=== PATIENT | female | born 1940 | race Two or more races ===

== ENCOUNTER 2016-06-13 15:10 | Outpatient (RCR) | payer BC | END 2016-06-30 | disposition home or self-care (01) | LOC: PTY 15:10 | DX: R53.81 Other malaise (principal) ==

== ENCOUNTER 2016-07-03 14:40 | Outpatient (RCR) | payer BC | END 2016-07-30 | disposition home or self-care (01) | LOC: PTY 14:40 | DX: R53.81 Other malaise (principal) ==

== ENCOUNTER 2016-09-11 17:44 | Inpatient (IN) | payer BC ==
[~2016-09-11] VITALS: Ht 162.6 cm; Wt 77.1 kg
[2016-09-11] MEDS ORDERED: NS 1000ml 1,900 ML IVLG ONE (18:00)
[2016-09-11 18:30] LABS: BASOPHILS % (AUTO) 0.8 % (0.0-2.0); EOSINOPHILS % (AUTO) 0.8 % (0.0-3.0); LYMPHOCYTES % (AUTO) 20.6 % (20.0-45.0); MEAN CORPUSCULAR HEMOGLOBIN 25.2 PG (27.0-31.0); MEAN CORPUSCULAR VOLUME 81 FL (80-99); MEAN PLATELET VOLUME 7.3 FL (6.5-10.1); MONOCYTES % (AUTO) 14.8 % (1.0-10.0); NEUTROPHILS % (AUTO) 62.9 % (45.0-75.0); PLATELET COUNT 319 K/UL (150-450); RED BLOOD COUNT 4.78 M/UL (4.20-5.40); RED CELL DISTRIBUTION WIDTH 16.3 % (11.6-14.8); WHITE BLOOD COUNT 3.5 K/UL (4.8-10.8)
--- NOTE | 2016-09-11 18:30 | Emergency Room Report ---
History of Present Illness General Chief Complaint: Generalized Weakness Source: Patient, Friend Present Illness HPI Patient is brought in by EMS. The patient is not really wanting to speak with me. She is accompanied by her son who called EMS to her home. Apparently, the patient lives alone and the friend had been called by the patient within the that she needed to go check on her. When she arrived at the patient's home she had been on the ground for some time and had not been eating or drinking. She was very weak and was unable to stand up. Therefore, she called 911. The patient herself has no specific complaints. Per report the patient is now living alone because her roommate is in a rehabilitation facility. Also, the patient herself just recently left a rehabilitation facility. Her primary complaint is generalized weakness. The patient has no other complaints. The patient denies pain or shortness of breath. The patient denies fever or chills. The patient denies nausea or vomiting. Allergies: Coded Allergies: PENICILLIN (Verified Allergy, Unknown, Rash, 03/30/15) Patient History Past Medical History: see triage record, DM, HTN, [place], CAD, CHF Social History: Denies: alcohol use, drug use, smoking Reviewed Nursing Documentation: PMH: Agreed, PSxH: Agreed Nursing Documentation-PMH Hx Pacemaker: Yes Hx Diabetes: Yes Review of Systems All Other Systems: negative except mentioned in HPI Physical Exam Vital Signs Date Time Temp Pulse Resp B/P Pulse Ox O2 Delivery O2 Flow Rate FiO2 09/11/16 17:40 98.2 104 14 110/60 95 Room Air Sp02 EP Interpretation: reviewed, normal General Appearance: no apparent distress, alert, GCS 15, non-toxic Head: normocephalic, atraumatic Eyes: bilateral eye PERRL, bilateral eye normal inspection ENT: hearing grossly normal, normal pharynx, no angioedema, normal voice, dry mucus membranes, other - Dry lips Neck: full range of motion, supple/symm/no masses Respiratory: chest non-tender, lungs clear, normal breath sounds, speaking full sentences Cardiovascular #1: no edema, tachycardia Gastrointestinal: normal bowel sounds, non tender, soft, non-distended, no guarding, no rebound Rectal: deferred Musculoskeletal: back normal, gait/station normal, normal range of motion, non- tender Neurologic: alert, oriented x3, responsive, motor strength/tone normal, sensory intact, speech normal Psychiatric: judgement/insight normal, memory normal, mood/affect normal, no suicidal/homicidal ideation Skin: normal color, no rash, warm/dry, well hydrated Medical Decision Making Diagnostic Impression: Primary Impression: Dehydration Additional Impressions: Failure to thrive Generalized weakness Inability to ambulate ER Course This elderly female presents after being down at her home for some time. The patient lives alone and is clearly having failure to thrive. She is dehydrated with dry lips and dry mucous membranes. She also has an elevated lactate that is likely secondary to dehydration. The patient was given IV fluids and broad- spectrum antibiotics for a urinary tract infection. She will be admitted for further evaluation and treatment. Likely, this patient will need placement in a snf facility. Labs Test 09/11/16 18:12 09/11/16 18:30 09/11/16 18:50 White Blood Count 3.5 K/UL (4.8-10.8) Red Blood Count 4.78 M/UL (4.20-5.40) Hemoglobin 12.1 G/DL (12.0-16.0) Hematocrit 38.8 % (37.0-47.0) Mean Corpuscular Volume 81 FL (80-99) Mean Corpuscular Hemoglobin 25.2 PG (27.0-31.0) Mean Corpuscular Hemoglobin Concent 31.0 G/DL (32.0-36.0) Red Cell Distribution Width 16.3 % (11.6-14.8) Platelet Count 319 K/UL (150-450) Mean Platelet Volume 7.3 FL (6.5-10.1) Neutrophils (%) (Auto) 62.9 % (45.0-75.0) Lymphocytes (%) (Auto) 20.6 % (20.0-45.0) Monocytes (%) (Auto) 14.8 % (1.0-10.0) Eosinophils (%) (Auto) 0.8 % (0.0-3.0) Basophils (%) (Auto) 0.8 % (0.0-2.0) Sodium Level 137 mEQ/L (135-145) Potassium Level 3.1 mEQ/L (3.4-4.9) Chloride Level 89 mEQ/L (98-107) Carbon Dioxide Level 34 mEQ/L (20-30) Anion Gap 14 (5-15) Blood Urea Nitrogen 16 mg/dL (7-23) Creatinine 0.7 mg/dL (0.5-0.9) Estimat Glomerular Filtration Rate mL/min (>60) Glucose Level 110 mg/dL (74-106) Lactic Acid Level 2.50 mmol/L (0.66-2.22) 2.30 mmol/L (0.66-2.22) Calcium Level 8.4 mg/dL (8.6-10.2) Magnesium Level 2.4 mg/dL (1.7-2.5) Total Bilirubin 1.0 mg/dL (0.0-1.2) Aspartate Amino Transf (AST/SGOT) 30 U/L (5-40) Alanine Aminotransferase (ALT/SGPT) 13 U/L (3-33) Alkaline Phosphatase 100 U/L (35-104) Total Creatine Kinase 73 U/L (26-140) Creatine Kinase MB 3.5 ng/mL (< 3.8) Creatine Kinase MB Relative Index 4.7 Troponin I < 0.30 ng/mL (<=0.30) Total Protein 6.1 g/dL (6.6-8.7) Albumin 2.6 g/dL (3.5-5.2) Globulin 3.5 g/dL Albumin/Globulin Ratio 0.7 (1.0-2.7) Urine Color Yellow Urine Appearance Clear Urine pH 8 (4.5-8.0) Urine Specific [place] 1.010 (1.005-1.035) Urine Protein 3+ (NEGATIVE) Urine Glucose (UA) Negative (NEGATIVE) Urine Ketones 2+ (NEGATIVE) Urine Occult Blood Negative (NEGATIVE) Urine Nitrite Negative (NEGATIVE) Urine Bilirubin Negative (NEGATIVE) Urine Urobilinogen 1 MG/DL (0.0-1.0) Urine Leukocyte Esterase 3+ (NEGATIVE) Urine RBC 2-4 /HPF (0 - 2) Urine WBC 5-10 /HPF (0 - 2) Urine Squamous Epithelial Cells Few /LPF (NONE/OCC) Urine Bacteria Few /HPF (NONE) EKG Diagnostic Results Rate: bradycardiac Rhythm: other ST Segments: no acute changes Other Impression Paced. Rate: 60. Rhythm Strip Diag. Results EP Interpretation: yes Rate: 60 Rhythm: no PVC's, no ectopy, other Other Impression Paced Chest X-Ray Diagnostic Results Chest X-Ray Ordered: Yes # of Views/Limited/Complete: 1 View Interpretation: no consolidation, no effusion, no pneumothorax Indication: Other Impression: Other - Cardiomegaly. Subtle increased interstitial opacities. Date Electronically Signed: Sep 11, 2016 Time Electronically Signed: 20:01 Last Vital Signs Date Time Temp Pulse Resp B/P Pulse Ox O2 Delivery O2 Flow Rate FiO2 09/11/16 17:40 98.2 104 14 110/60 95 Room Air Disposition: ADMITTED INPATIENT Condition: Serious PRATIK MUNOZ D.O. Sep 11, 2016 18:30
[2016-09-11 18:37] VITALS: BP 110/60
[2016-09-11 18:39] LABS: TROPONIN I < 0.30 ng/mL (<=0.30)
[2016-09-11 18:41] LABS: REFLEX LACTIC ACID YES OR NO YES
[2016-09-11 18:50] LABS: APPEARANCE,URINE CLEAR; KETONES,URINE 2+ (NEGATIVE); LEUKOCYTE ESTERASE ,URINE 3+ (NEGATIVE); NITRITE,URINE NEGATIVE (NEGATIVE); PH,URINE 8 (4.5-8.0); PROTEIN,URINE 3+ (NEGATIVE); UROBILINOGEN,URINE 1 MG/DL (0.0-1.0)
[2016-09-11 18:58] LABS: BACTERIA,URINE FEW /HPF; SQUAMOUS EPITHELIAL CELL,UR FEW /LPF (NONE/OCC)
[2016-09-11] MEDS ORDERED: cefTRIAXone 1 GM in NS 55 ML IVPB ONE (19:00)
[2016-09-11 19:02] LABS: ALANINE AMINOTRANSFERASE 13 U/L (3-33); ALBUMIN/GLOBULIN RATIO 0.7 (1.0-2.7); ANION GAP 14 (5-15); ASPARTATE AMINO TRANSFERASE 30 U/L (5-40); CALCIUM 8.4 mg/dL (8.6-10.2); CARBON DIOXIDE 34 mEQ/L (20-30); CHLORIDE 89 mEQ/L (98-107); CREATININE 0.7 mg/dL (0.5-0.9); HEMOLYSIS 6; MAGNESIUM 2.4 mg/dL (1.7-2.5); POTASSIUM 3.1 mEQ/L (3.4-4.9); SODIUM 137 mEQ/L (135-145); TOTAL PROTEIN 6.1 g/dL (6.6-8.7)
[2016-09-11 19:13] LABS: CKMB 3.5 ng/mL (< 3.8)
[2016-09-11 19:30] VITALS: BP 98/54
[2016-09-11] MEDS ORDERED: GABAPENTIN250 MG/5 M PO (20:18)
[2016-09-11] MEDS ORDERED: METOLAZONE5 MG PO (20:18)
[2016-09-11] MEDS ORDERED: ASPIR 8181 MG ORAL (20:18)
[2016-09-11] MEDS ORDERED: SIMETHICON40 MG/0.2 PO (20:18)
[2016-09-11] MEDS ORDERED: VITAMIN D1000 UNI1 ORAL (20:18)
[2016-09-11] MEDS ORDERED: COREG3.125 MG ORAL (20:18)
[2016-09-11] MEDS ORDERED: VITAMIN E400 UNI5 PO (20:18)
[2016-09-11] MEDS ORDERED: ZINC SULFATE220 M2 ORAL (20:18)
[2016-09-11] MEDS ORDERED: JANUVIA50 MG ORAL (20:18)
[2016-09-11] MEDS ORDERED: POTASSIUM 25 M25 ME1 PO (20:18)
[2016-09-11] MEDS ORDERED: DEMADEX20 M1 PO (20:18)
[2016-09-11] MEDS ORDERED: VITAMIN C500 M1 ORAL (20:18)
[2016-09-11] MEDS ORDERED: NEURONTIN100 MG ORAL (20:18)
[2016-09-11] MEDS ORDERED: DIGOXIN0.125 MG/1 PO (20:18)
[2016-09-11] MEDS ORDERED: NORCO 5-325 TA1 EACH ORAL (20:18)
[2016-09-11] MEDS ORDERED: MULTI-VITAMIN1 EACH PO (20:18)
[2016-09-11 20:48] VITALS: BP 139/51
[2016-09-11] MEDS ORDERED: LORazepam Inj 2mg/ml 1ml IV PRN (21:00)
[2016-09-11] MEDS ORDERED: Morphine Sulfate 2mg/ml Inj IVP PRN (21:00)
[2016-09-11] MEDS ORDERED: Miralax 17gm pkt ORAL PRN (21:00)
[2016-09-11] MEDS ORDERED: Zolpidem 5mg tab ORAL PRN (21:00)
[2016-09-11] MEDS ORDERED: Mylanta II UD 30ml ORAL PRN (21:00)
[2016-09-11] MEDS: NovoLOG Insulin Flexpen SUBQ SCH (22:00)
[2016-09-11] MEDS ORDERED: 1/2NS w/KCl 20mEq 1000ml 1,000 ML IV SCH (22:00)
[2016-09-11] MEDS: Heparin 5000 units/ml inj SUBQ SCH (22:36)
[2016-09-11] MEDS ORDERED: GABAPENTIN100 MG ORAL (23:10)
[2016-09-12] VITALS (26 sets, daily range): BP systolic 80–126; BP diastolic 44–89
[2016-09-12] MEDS: NovoLOG Insulin Flexpen SUBQ SCH ×4 (06:30→22:03)
[2016-09-12 07:29] LABS: MEAN CORPUSCULAR HEMOGLOBIN 25.5 PG (27.0-31.0); MEAN CORPUSCULAR VOLUME 80 FL (80-99); MEAN PLATELET VOLUME 7.3 FL (6.5-10.1); PLATELET COUNT 331 K/UL (150-450); RED BLOOD COUNT 4.24 M/UL (4.20-5.40); RED CELL DISTRIBUTION WIDTH 16.7 % (11.6-14.8); WHITE BLOOD COUNT 2.9 K/UL (4.8-10.8)
[2016-09-12 07:48] LABS: HEMOGLOBIN A1C 6.8 % (< 6.0)
[2016-09-12 08:03] LABS: ALANINE AMINOTRANSFERASE 11 U/L (3-33); ALBUMIN/GLOBULIN RATIO 0.6 (1.0-2.7); ANION GAP 15 (5-15); ASPARTATE AMINO TRANSFERASE 29 U/L (5-40); CALCIUM 7.8 mg/dL (8.6-10.2); CARBON DIOXIDE 29 mEQ/L (20-30); CHLORIDE 91 mEQ/L (98-107); CHOLESTEROL 146 mg/dL (< 200); CHOLESTEROL/HDL RATIO 2.6 (3.3-4.4); CREATININE 0.6 mg/dL (0.5-0.9); HEMOLYSIS 15; LDL CHOLESTEROL (CALC.) 73 mg/dL (60-99); POTASSIUM 3.1 mEQ/L (3.4-4.9); SODIUM 135 mEQ/L (135-145); TOTAL PROTEIN 5.3 g/dL (6.6-8.7)
[2016-09-12 08:44] LABS: ANISOCYTOSIS 1+; BAND NEUTROPHILS % (MANUAL) 0 % (0-8); BASOPHILS % (MANUAL) 0 % (0-2); EOSINOPHILS % (MANUAL) 2 % (0-3); HYPOCHROMASIA 1+; LYMPHOCYTES % (MANUAL) 20 % (20-45); NEUTROPHILS % (MANUAL) 56 % (45-75); PLATELET ESTIMATE ADEQUATE; PLATELET MORPHOLOGY NORMAL; TOTAL CELLS COUNTED 100
[2016-09-12] MEDS ORDERED: Digoxin 0.125mg tab ORAL SCH (09:00)
[2016-09-12] MEDS: Heparin 5000 units/ml inj SUBQ SCH ×2 (09:06→22:03)
--- NOTE | 2016-09-12 09:50 | Consultation ---
Consult Note Consult Note asked to eval for proteinuria and abnormal electrolytes Chief Complaint: Generalized Weakness Patient is brought in by EMS. The patient is not really wanting to speak with me. She is accompanied by her son who called EMS to her home. Apparently, the patient lives alone and the friend had been called by the patient within the that she needed to go check on her. When she arrived at the patient's home she had been on the ground for some time and had not been eating or drinking. She was very weak and was unable to stand up. Therefore, she called 911. The patient herself has no specific complaints. Per report the patient is now living alone because her roommate is in a rehabilitation facility. Also, the patient herself just recently left a rehabilitation facility. Her primary complaint is generalized weakness. The patient has no other complaints. The patient denies pain or shortness of breath. The patient denies fever or chills. The patient denies nausea or vomiting. Allergies: Coded Allergies: PENICILLIN (Verified Allergy, Unknown, Rash, 03/30/15) Patient History Past Medical History: see triage record, DM, HTN, DC, CAD, CHF Hx Pacemaker: Yes Hx Diabetes: Yes Assessment/Plan status: Proteinuria, likely Diabetic Nephropathy HypoAlbuminemia: Increase Loss vs Decrease production- UTI Anemia Failure to thrive / Dehydration Pacer Plan; Anemia [facility]- K supplement- 24 H urine for protein gastric support- stop [facility]- 2D Echo per orders FAUZIA MAYA Sep 12, 2016 09:49
--- NOTE | 2016-09-12 12:08 | Diagnostic Imaging Report ---
Indications: Shortness of breath Technique: Portable AP chest Findings: Comparison: 01/02/2005 Cardiac silhouette has increased in size. Pulmonary vascular redistribution, bilateral interstitial infiltrates, left costophrenic angle indistinctness have developed. Pacemaker has been placed and left chest wall. IMPRESSION: Findings compatible with development of congestive heart failure with probable left pleural effusion Interval pacemaker placement
[2016-09-12] MEDS ORDERED: DOBUTamine 250mg/250ml Premix 250 ML IV SCH (13:45)
--- NOTE | 2016-09-12 13:53 | History and Physical ---
History of Present Illness General Date patient seen: Sep 12, 2016 Reason for Hospitalization: Generalized Weakness Present Illness HPI 75 year old female with hx of cardiomyopathy, ICD, brought in by EMS for acute encephalopathy, apparently patient had been on the ground for some time and had not been eating or drinking. She was very weak and was unable to stand up. Per report the patient is now living alone because her roommate is in a rehabilitation facility. Also, the patient herself just recently left a rehabilitation facility. Her primary complaint is generalized weakness. The patient has no other complaints. The patient denies pain or shortness of breath. The patient denies fever or chills. The patient denies nausea or vomiting. She is admitted to telemetry. Her blood pressure has been at the low side. She is somnolent and doesn't want to answer to any questions. . Allergies: Coded Allergies: PENICILLIN (Verified Allergy, Unknown, Rash, 03/30/15) Medication History Scheduled Ascorbic Acid* (Vitamin C*), 500 MG ORAL DAILY, (Reported) Aspirin* (Aspir 81*), 81 MG ORAL DAILY, (Reported) Carvedilol (Coreg), 3.125 MG ORAL EVERY 12 HOURS, (Reported) Cholecalciferol (Vitamin D3)* (Vitamin D*), 1,000 UNIT ORAL DAILY, (Reported) Digoxin (Digoxin), 0.125 MG PO DAILY, (Reported) Gabapentin* (Neurontin*), 300 MG ORAL HS, (Reported) Gabapentin* (Gabapentin*), 100 MG ORAL THREE TIMES A DAY, (Reported) Metolazone (Metolazone), 5 MG PO THREE TIMES A WEEK, (Reported) Multivitamin (Multi-Vitamin Daily), 1 EACH PO DAILY, (Reported) Potassium Bicarbonate/Cit Ac (Potassium 25 Meq Tablet Eff), 40 MEQ PO DAILY, ( Reported) Simethicone (Simethicone), 80 MG PO QID, (Reported) Sitagliptin (Januvia), 50 MG ORAL DAILY, (Reported) Torsemide (Demadex), 20 MG PO DAILY, (Reported) Vitamin E Mixed (Vitamin E), 400 UNIT PO DAILY, (Reported) Zinc Sulfate (Zinc Sulfate), 220 MG ORAL DAILY, (Reported) Scheduled PRN Hydrocodone Bit/Acetaminophen 5-325* ([place] 5-325*), 1 TAB ORAL Q4H PRN for For Pain, (Reported) Discontinued Medications Gabapentin (Gabapentin), 100 MG PO TID, (Reported) Discontinued Reason: Medication dose changed Patient History Healthcare decision maker N Resuscitation status Full Code Advanced Directive on File Past Medical/Surgical History Past Medical/Surgical History: (1) ICD (implantable cardioverter-defibrillator) in place (2) Renal insufficiency (3) Diabetes mellitus Review of Systems Constitutional: Reports: malaise, weakness Physical Exam General Appearance: cachetic Lines, tubes and drains: peripheral HEENT: normocephalic, atraumatic Neck: non-tender, normal alignment Respiratory/Chest: chest wall non-tender, lungs clear Cardiovascular/Chest: normal peripheral pulses Abdomen: normal bowel sounds, non tender Genitourinary/Rectal: normal genital exam Extremities: severe edema Last 24 Hour Vital Signs Date Time Temp Pulse Resp B/P Pulse Ox O2 Delivery O2 Flow Rate FiO2 09/12/16 12:53 90/52 09/12/16 12:30 86 101/56 09/12/16 12:00 97.0 84 17 87/48 97 Room Air 09/12/16 09:06 88 09/12/16 09:06 88 112/55 09/12/16 08:09 97.7 88 17 112/55 100 2.0 09/12/16 08:00 94 09/12/16 04:00 87 09/12/16 03:46 97.8 78 19 119/75 93 Room Air 09/12/16 00:01 98.3 89 18 126/53 95 Room Air 09/12/16 00:00 96 09/11/16 22:58 95 135/55 09/11/16 20:48 97.0 101 19 139/51 98 Room Air 09/11/16 20:42 104 09/11/16 20:26 95.8 97 15 98/54 99 Room Air 09/11/16 19:30 95.8 97 15 98/54 99 Room Air 09/11/16 18:37 98.2 104 14 110/60 95 Room Air 09/11/16 17:40 98.2 104 14 110/60 95 Room Air Intake and Output 09/11/16 09/12/16 19:00 07:00 Intake Total 2495 ml Balance 2495 ml Intake Oral 120 ml IV Total 2375 ml # Voids 1 5 Laboratory Tests Test 09/11/16 18:12 09/11/16 18:30 09/11/16 18:50 09/12/16 06:00 White Blood Count 3.5 K/UL (4.8-10.8) L 2.9 K/UL (4.8-10.8) L Red Blood Count 4.78 M/UL (4.20-5.40) 4.24 M/UL (4.20-5.40) Hemoglobin 12.1 G/DL (12.0-16.0) 10.8 G/DL (12.0-16.0) L Hematocrit 38.8 % (37.0-47.0) 33.8 % (37.0-47.0) L Mean Corpuscular Volume 81 FL (80-99) 80 FL (80-99) Mean Corpuscular Hemoglobin 25.2 PG (27.0-31.0) L 25.5 PG (27.0-31.0) L Mean Corpuscular Hemoglobin Concent 31.0 G/DL (32.0-36.0) L 32.0 G/DL (32.0-36.0) Red Cell Distribution Width 16.3 % (11.6-14.8) H 16.7 % (11.6-14.8) H Platelet Count 319 K/UL (150-450) 331 K/UL (150-450) Mean Platelet Volume 7.3 FL (6.5-10.1) 7.3 FL (6.5-10.1) Neutrophils (%) (Auto) 62.9 % (45.0-75.0) % (45.0-75.0) Lymphocytes (%) (Auto) 20.6 % (20.0-45.0) % (20.0-45.0) Monocytes (%) (Auto) 14.8 % (1.0-10.0) H % (1.0-10.0) Eosinophils (%) (Auto) 0.8 % (0.0-3.0) % (0.0-3.0) Basophils (%) (Auto) 0.8 % (0.0-2.0) % (0.0-2.0) Sodium Level 137 mEQ/L (135-145) 135 mEQ/L (135-145) Potassium Level 3.1 mEQ/L (3.4-4.9) L 3.1 mEQ/L (3.4-4.9) L Chloride Level 89 mEQ/L (98-107) L 91 mEQ/L (98-107) L Carbon Dioxide Level 34 mEQ/L (20-30) H 29 mEQ/L (20-30) Anion Gap 14 (5-15) 15 (5-15) Blood Urea Nitrogen 16 mg/dL (7-23) 12 mg/dL (7-23) Creatinine 0.7 mg/dL (0.5-0.9) 0.6 mg/dL (0.5-0.9) Estimat Glomerular Filtration Rate mL/min (>60) mL/min (>60) Glucose Level 110 mg/dL (74-106) H 92 mg/dL (74-106) Lactic Acid Level 2.50 mmol/L (0.66-2.22) H 2.30 mmol/L (0.66-2.22) H Calcium Level 8.4 mg/dL (8.6-10.2) L 7.8 mg/dL (8.6-10.2) L Magnesium Level 2.4 mg/dL (1.7-2.5) Total Bilirubin 1.0 mg/dL (0.0-1.2) 0.7 mg/dL (0.0-1.2) Aspartate Amino Transf (AST/SGOT) 30 U/L (5-40) 29 U/L (5-40) Alanine Aminotransferase (ALT/SGPT) 13 U/L (3-33) 11 U/L (3-33) Alkaline Phosphatase 100 U/L (35-104) 87 U/L (35-104) Total Creatine Kinase 73 U/L (26-140) Creatine Kinase MB 3.5 ng/mL (< 3.8) Creatine Kinase MB Relative Index 4.7 Troponin I < 0.30 ng/mL (<=0.30) Total Protein 6.1 g/dL (6.6-8.7) L 5.3 g/dL (6.6-8.7) L Albumin 2.6 g/dL (3.5-5.2) L 2.1 g/dL (3.5-5.2) L Globulin 3.5 g/dL 3.2 g/dL Albumin/Globulin Ratio 0.7 (1.0-2.7) L 0.6 (1.0-2.7) L Urine Color Yellow Urine Appearance Clear Urine pH 8 (4.5-8.0) Urine Specific [place] 1.010 (1.005-1.035) Urine Protein 3+ (NEGATIVE) H Urine Glucose (UA) Negative (NEGATIVE) Urine Ketones 2+ (NEGATIVE) H Urine Occult Blood Negative (NEGATIVE) Urine Nitrite Negative (NEGATIVE) Urine Bilirubin Negative (NEGATIVE) Urine Urobilinogen 1 MG/DL (0.0-1.0) H Urine Leukocyte Esterase 3+ (NEGATIVE) H Urine RBC 2-4 /HPF (0 - 2) H Urine WBC 5-10 /HPF (0 - 2) H Urine Squamous Epithelial Cells Few /LPF (NONE/OCC) Urine Bacteria Few /HPF (NONE) Differential Total Cells Counted 100 Neutrophils % (Manual) 56 % (45-75) Lymphocytes % (Manual) 20 % (20-45) Monocytes % (Manual) 22 % (1-10) H Eosinophils % (Manual) 2 % (0-3) Basophils % (Manual) 0 % (0-2) Band Neutrophils 0 % (0-8) Platelet Estimate Adequate Platelet Morphology Normal Hypochromasia 1+ Anisocytosis 1+ Hemoglobin A1c 6.8 % (< 6.0) H Triglycerides Level 85 mg/dL (< 150) Cholesterol Level 146 mg/dL (< 200) LDL Cholesterol 73 mg/dL (60-99) HDL Cholesterol 56 mg/dL (> 60) Cholesterol/HDL Ratio 2.6 (3.3-4.4) L Thyroid Stimulating Hormone (TSH) 2.100 uIU/mL (0.300-4.500) Height (Feet): 5 Height (Inches): 4.00 Weight (Pounds): 152 Medications Current Medications Medications (Trade) Dose Ordered Sig/Michael Route PRN Reason Start Time Stop Time Status Last Admin Dose Admin Acetaminophen (Tylenol) 650 mg Q4H PRN ORAL fever 09/11/16 21:00 10/11/16 20:59 Carvedilol (Coreg) 3.125 mg EVERY 12 HOURS ORAL 09/11/16 21:00 10/11/16 20:59 09/12/16 09:06 Dextrose (Dextrose 50%) STAT PRN IV Hypoglycemia 09/11/16 21:00 10/11/16 20:59 Digoxin (Lanoxin) 0.125 mg DAILY ORAL 09/12/16 09:00 10/12/16 08:59 09/12/16 09:06 Heparin Sodium (Porcine) (Heparin 5000 units/ml) 5,000 units EVERY 12 HOURS SUBQ 09/11/16 21:00 10/11/16 20:59 09/12/16 09:06 Insulin Aspart (NovoLOG) BEFORE MEALS AND HS SUBQ 09/11/16 22:00 10/11/16 21:59 Lorazepam (Ativan 2mg/ml 1ml) 0.5 mg Q4H PRN IV For Anxiety 09/11/16 21:00 09/18/16 20:59 09/12/16 09:21 Morphine Sulfate (Morphine Sulfate) 1 mg EVERY 4 HOURS PRN IVP For Pain 09/11/16 21:00 09/18/16 20:59 Ondansetron HCl (Zofran) 4 mg Q6H PRN IVP Nausea & Vomiting 09/11/16 21:00 10/11/16 20:59 Pantoprazole (Protonix) 40 mg BID ORAL 09/12/16 10:00 10/12/16 09:59 09/12/16 11:08 Polyethylene Glycol (Miralax) 17 gm HSPRN PRN ORAL Constipation 09/11/16 21:00 10/11/16 20:59 Potassium Chloride (K-Dur) 40 meq TWICE A DAY ORAL 09/12/16 10:00 09/13/16 09:59 09/12/16 11:08 Zolpidem Tartrate (Ambien) 5 mg HSPRN PRN ORAL Insomnia 09/11/16 21:00 10/11/16 20:59 Assessment/Plan Problem List: (1) Shock ICD Codes: R57.9 - Shock, unspecified SNOMED: 12693389 (2) Hypotension ICD Codes: I95.9 - Hypotension, unspecified SNOMED: 32435372 (3) ICD (implantable cardioverter-defibrillator) in place ICD Codes: Z95.810 - Presence of automatic (implantable) cardiac defibrillator SNOMED: 685390535, 689703310 (4) Protein-calorie malnutrition, severe ICD Codes: E43 - Unspecified severe protein-calorie malnutrition SNOMED: 605138133 (5) Isolation, social ICD Codes: Z60.4 - Social exclusion and rejection SNOMED: 522845179 (6) Generalized weakness ICD Codes: R53.1 - Weakness SNOMED: 19154342 (7) Failure to thrive SNOMED: 87071068 (8) Diabetes mellitus ICD Codes: E11.9 - Type 2 diabetes mellitus without complications SNOMED: 70444916 (9) Renal insufficiency ICD Codes: N28.9 - Disorder of kidney and ureter, unspecified SNOMED: 308831842, 838485628 (10) Impaired mobility and ADLs ICD Codes: Z74.09 - Other reduced mobility SNOMED: 14774901, 399083728 Assessment/Plan IV fluids central line for dobutamin if hypotension persists cardiology evaluation echo venous doppler of legs social service ANGELA BERUMEN Sep 12, 2016 13:53
[2016-09-12] MEDS ORDERED: Heparin 2000 units/Ns 1000ml INJ ONE (14:00)
[2016-09-12] MEDS ORDERED: Lidocaine 1% Plain 30 ml INJ ONE (14:00)
[2016-09-12] MEDS ORDERED: Sodium Bicarbonate 4% 2.4meq/5ml vial INJ ONE (14:00)
[2016-09-12] MEDS ORDERED: LORazepam Inj 2mg/ml 1ml IV PRN (14:30)
--- NOTE | 2016-09-12 14:42 | Neurology Progress Note ---
Objective Physical Exam Last Vital Signs Date Time Temp Pulse Resp B/P Pulse Ox O2 Delivery O2 Flow Rate FiO2 09/12/16 13:51 88/51 09/12/16 12:30 86 09/12/16 12:00 97.0 17 97 Room Air 09/12/16 08:09 2.0 Laboratory Tests Test 09/11/16 18:12 09/11/16 18:30 09/11/16 18:50 09/12/16 06:00 White Blood Count 3.5 K/UL (4.8-10.8) L 2.9 K/UL (4.8-10.8) L Red Blood Count 4.78 M/UL (4.20-5.40) 4.24 M/UL (4.20-5.40) Hemoglobin 12.1 G/DL (12.0-16.0) 10.8 G/DL (12.0-16.0) L Hematocrit 38.8 % (37.0-47.0) 33.8 % (37.0-47.0) L Mean Corpuscular Volume 81 FL (80-99) 80 FL (80-99) Mean Corpuscular Hemoglobin 25.2 PG (27.0-31.0) L 25.5 PG (27.0-31.0) L Mean Corpuscular Hemoglobin Concent 31.0 G/DL (32.0-36.0) L 32.0 G/DL (32.0-36.0) Red Cell Distribution Width 16.3 % (11.6-14.8) H 16.7 % (11.6-14.8) H Platelet Count 319 K/UL (150-450) 331 K/UL (150-450) Mean Platelet Volume 7.3 FL (6.5-10.1) 7.3 FL (6.5-10.1) Neutrophils (%) (Auto) 62.9 % (45.0-75.0) % (45.0-75.0) Lymphocytes (%) (Auto) 20.6 % (20.0-45.0) % (20.0-45.0) Monocytes (%) (Auto) 14.8 % (1.0-10.0) H % (1.0-10.0) Eosinophils (%) (Auto) 0.8 % (0.0-3.0) % (0.0-3.0) Basophils (%) (Auto) 0.8 % (0.0-2.0) % (0.0-2.0) Sodium Level 137 mEQ/L (135-145) 135 mEQ/L (135-145) Potassium Level 3.1 mEQ/L (3.4-4.9) L 3.1 mEQ/L (3.4-4.9) L Chloride Level 89 mEQ/L (98-107) L 91 mEQ/L (98-107) L Carbon Dioxide Level 34 mEQ/L (20-30) H 29 mEQ/L (20-30) Anion Gap 14 (5-15) 15 (5-15) Blood Urea Nitrogen 16 mg/dL (7-23) 12 mg/dL (7-23) Creatinine 0.7 mg/dL (0.5-0.9) 0.6 mg/dL (0.5-0.9) Estimat Glomerular Filtration Rate mL/min (>60) mL/min (>60) Glucose Level 110 mg/dL (74-106) H 92 mg/dL (74-106) Lactic Acid Level 2.50 mmol/L (0.66-2.22) H 2.30 mmol/L (0.66-2.22) H Calcium Level 8.4 mg/dL (8.6-10.2) L 7.8 mg/dL (8.6-10.2) L Magnesium Level 2.4 mg/dL (1.7-2.5) Total Bilirubin 1.0 mg/dL (0.0-1.2) 0.7 mg/dL (0.0-1.2) Aspartate Amino Transf (AST/SGOT) 30 U/L (5-40) 29 U/L (5-40) Alanine Aminotransferase (ALT/SGPT) 13 U/L (3-33) 11 U/L (3-33) Alkaline Phosphatase 100 U/L (35-104) 87 U/L (35-104) Total Creatine Kinase 73 U/L (26-140) Creatine Kinase MB 3.5 ng/mL (< 3.8) Creatine Kinase MB Relative Index 4.7 Troponin I < 0.30 ng/mL (<=0.30) Total Protein 6.1 g/dL (6.6-8.7) L 5.3 g/dL (6.6-8.7) L Albumin 2.6 g/dL (3.5-5.2) L 2.1 g/dL (3.5-5.2) L Globulin 3.5 g/dL 3.2 g/dL Albumin/Globulin Ratio 0.7 (1.0-2.7) L 0.6 (1.0-2.7) L Urine Color Yellow Urine Appearance Clear Urine pH 8 (4.5-8.0) Urine Specific [place] 1.010 (1.005-1.035) Urine Protein 3+ (NEGATIVE) H Urine Glucose (UA) Negative (NEGATIVE) Urine Ketones 2+ (NEGATIVE) H Urine Occult Blood Negative (NEGATIVE) Urine Nitrite Negative (NEGATIVE) Urine Bilirubin Negative (NEGATIVE) Urine Urobilinogen 1 MG/DL (0.0-1.0) H Urine Leukocyte Esterase 3+ (NEGATIVE) H Urine RBC 2-4 /HPF (0 - 2) H Urine WBC 5-10 /HPF (0 - 2) H Urine Squamous Epithelial Cells Few /LPF (NONE/OCC) Urine Bacteria Few /HPF (NONE) Differential Total Cells Counted 100 Neutrophils % (Manual) 56 % (45-75) Lymphocytes % (Manual) 20 % (20-45) Monocytes % (Manual) 22 % (1-10) H Eosinophils % (Manual) 2 % (0-3) Basophils % (Manual) 0 % (0-2) Band Neutrophils 0 % (0-8) Platelet Estimate Adequate Platelet Morphology Normal Hypochromasia 1+ Anisocytosis 1+ Hemoglobin A1c 6.8 % (< 6.0) H Triglycerides Level 85 mg/dL (< 150) Cholesterol Level 146 mg/dL (< 200) LDL Cholesterol 73 mg/dL (60-99) HDL Cholesterol 56 mg/dL (> 60) Cholesterol/HDL Ratio 2.6 (3.3-4.4) L Thyroid Stimulating Hormone (TSH) 2.100 uIU/mL (0.300-4.500) Impression/Recommendations Problems: (1) Cognitive decline (2) Impaired mobility and ADLs (3) Protein-calorie malnutrition, severe (4) Hypotension (5) ICD (implantable cardioverter-defibrillator) in place (6) Failure to thrive Status: not improved, unchanged Recommendations #[id number] KHADIJAH MORALES Sep 12, 2016 14:42
[2016-09-12] MEDS ORDERED: Morphine Sulfate 2mg/ml Inj IVP PRN (14:45)
--- NOTE | 2016-09-12 17:21 | Cardiology Progress Note ---
Assessment/Plan Assessment/Plan hypotension related to meds as well as volume chronci systolic failure with acute component dcm ef 10-15% hs of sig mr s/p mitraclip sever TR peripheral edema due to tr recentl cellutiis dm metabolic encephalopathy brest cancer hs recetnl dx fo thryoid cancer not treatede surgically due to poor cardiac status ? broncitis vs sinusitis hold diuretic for nwo dobutain avoid narctoic resuem med cardic once bp is better pt known to me for more than 15 year [id number] Objective Last 24 Hour Vital Signs Date Time Temp Pulse Resp B/P Pulse Ox O2 Delivery O2 Flow Rate FiO2 09/12/16 17:00 97 19 88/44 100 Nasal Cannula 2.0 09/12/16 16:00 98.1 81 20 108/75 100 Nasal Cannula 2.0 09/12/16 16:00 78 09/12/16 15:00 82 19 83/55 100 Nasal Cannula 2.0 09/12/16 14:19 82 09/12/16 14:00 98.2 81 20 81/53 100 Nasal Cannula 2.0 09/12/16 13:51 88/51 09/12/16 12:53 90/52 09/12/16 12:30 86 101/56 09/12/16 12:00 97.0 84 17 87/48 97 Room Air 09/12/16 09:06 88 09/12/16 09:06 88 112/55 09/12/16 08:09 97.7 88 17 112/55 100 2.0 09/12/16 08:00 94 09/12/16 04:00 87 09/12/16 03:46 97.8 78 19 119/75 93 Room Air 09/12/16 00:01 98.3 89 18 126/53 95 Room Air 09/12/16 00:00 96 09/11/16 22:58 95 135/55 09/11/16 20:48 97.0 101 19 139/51 98 Room Air 09/11/16 20:42 104 09/11/16 20:26 95.8 97 15 98/54 99 Room Air 09/11/16 19:30 95.8 97 15 98/54 99 Room Air 09/11/16 18:37 98.2 104 14 110/60 95 Room Air 09/11/16 17:40 98.2 104 14 110/60 95 Room Air Intake and Output 09/11/16 09/12/16 19:00 07:00 Intake Total 2495 ml Balance 2495 ml Intake Oral 120 ml IV Total 2375 ml # Voids 1 5 Laboratory Tests Test 09/11/16 18:12 09/11/16 18:30 09/11/16 18:50 09/12/16 06:00 White Blood Count 3.5 K/UL (4.8-10.8) L 2.9 K/UL (4.8-10.8) L Red Blood Count 4.78 M/UL (4.20-5.40) 4.24 M/UL (4.20-5.40) Hemoglobin 12.1 G/DL (12.0-16.0) 10.8 G/DL (12.0-16.0) L Hematocrit 38.8 % (37.0-47.0) 33.8 % (37.0-47.0) L Mean Corpuscular Volume 81 FL (80-99) 80 FL (80-99) Mean Corpuscular Hemoglobin 25.2 PG (27.0-31.0) L 25.5 PG (27.0-31.0) L Mean Corpuscular Hemoglobin Concent 31.0 G/DL (32.0-36.0) L 32.0 G/DL (32.0-36.0) Red Cell Distribution Width 16.3 % (11.6-14.8) H 16.7 % (11.6-14.8) H Platelet Count 319 K/UL (150-450) 331 K/UL (150-450) Mean Platelet Volume 7.3 FL (6.5-10.1) 7.3 FL (6.5-10.1) Neutrophils (%) (Auto) 62.9 % (45.0-75.0) % (45.0-75.0) Lymphocytes (%) (Auto) 20.6 % (20.0-45.0) % (20.0-45.0) Monocytes (%) (Auto) 14.8 % (1.0-10.0) H % (1.0-10.0) Eosinophils (%) (Auto) 0.8 % (0.0-3.0) % (0.0-3.0) Basophils (%) (Auto) 0.8 % (0.0-2.0) % (0.0-2.0) Sodium Level 137 mEQ/L (135-145) 135 mEQ/L (135-145) Potassium Level 3.1 mEQ/L (3.4-4.9) L 3.1 mEQ/L (3.4-4.9) L Chloride Level 89 mEQ/L (98-107) L 91 mEQ/L (98-107) L Carbon Dioxide Level 34 mEQ/L (20-30) H 29 mEQ/L (20-30) Anion Gap 14 (5-15) 15 (5-15) Blood Urea Nitrogen 16 mg/dL (7-23) 12 mg/dL (7-23) Creatinine 0.7 mg/dL (0.5-0.9) 0.6 mg/dL (0.5-0.9) Estimat Glomerular Filtration Rate mL/min (>60) mL/min (>60) Glucose Level 110 mg/dL (74-106) H 92 mg/dL (74-106) Lactic Acid Level 2.50 mmol/L (0.66-2.22) H 2.30 mmol/L (0.66-2.22) H Calcium Level 8.4 mg/dL (8.6-10.2) L 7.8 mg/dL (8.6-10.2) L Magnesium Level 2.4 mg/dL (1.7-2.5) Total Bilirubin 1.0 mg/dL (0.0-1.2) 0.7 mg/dL (0.0-1.2) Aspartate Amino Transf (AST/SGOT) 30 U/L (5-40) 29 U/L (5-40) Alanine Aminotransferase (ALT/SGPT) 13 U/L (3-33) 11 U/L (3-33) Alkaline Phosphatase 100 U/L (35-104) 87 U/L (35-104) Total Creatine Kinase 73 U/L (26-140) Creatine Kinase MB 3.5 ng/mL (< 3.8) Creatine Kinase MB Relative Index 4.7 Troponin I < 0.30 ng/mL (<=0.30) Total Protein 6.1 g/dL (6.6-8.7) L 5.3 g/dL (6.6-8.7) L Albumin 2.6 g/dL (3.5-5.2) L 2.1 g/dL (3.5-5.2) L Globulin 3.5 g/dL 3.2 g/dL Albumin/Globulin Ratio 0.7 (1.0-2.7) L 0.6 (1.0-2.7) L Urine Color Yellow Urine Appearance Clear Urine pH 8 (4.5-8.0) Urine Specific [place] 1.010 (1.005-1.035) Urine Protein 3+ (NEGATIVE) H Urine Glucose (UA) Negative (NEGATIVE) Urine Ketones 2+ (NEGATIVE) H Urine Occult Blood Negative (NEGATIVE) Urine Nitrite Negative (NEGATIVE) Urine Bilirubin Negative (NEGATIVE) Urine Urobilinogen 1 MG/DL (0.0-1.0) H Urine Leukocyte Esterase 3+ (NEGATIVE) H Urine RBC 2-4 /HPF (0 - 2) H Urine WBC 5-10 /HPF (0 - 2) H Urine Squamous Epithelial Cells Few /LPF (NONE/OCC) Urine Bacteria Few /HPF (NONE) Differential Total Cells Counted 100 Neutrophils % (Manual) 56 % (45-75) Lymphocytes % (Manual) 20 % (20-45) Monocytes % (Manual) 22 % (1-10) H Eosinophils % (Manual) 2 % (0-3) Basophils % (Manual) 0 % (0-2) Band Neutrophils 0 % (0-8) Platelet Estimate Adequate Platelet Morphology Normal Hypochromasia 1+ Anisocytosis 1+ Hemoglobin A1c 6.8 % (< 6.0) H Triglycerides Level 85 mg/dL (< 150) Cholesterol Level 146 mg/dL (< 200) LDL Cholesterol 73 mg/dL (60-99) HDL Cholesterol 56 mg/dL (> 60) Cholesterol/HDL Ratio 2.6 (3.3-4.4) L Thyroid Stimulating Hormone (TSH) 2.100 uIU/mL (0.300-4.500) MARSHALL ROJO 13, 2017 17:21
--- NOTE | 2016-09-12 17:42 | Cardiology Report ---
APPROVED REPORT EXAM: Two-dimensional and M-mode echocardiogram with Doppler and color Doppler. INDICATION Congestive Heart Failure M-Mode DIMENSIONS IVSd1.2 (0.7-1.1cm)Left Atrium (MM)4.3 (1.6-4.0cm) LVDd6.1 (3.5-5.6cm)Aortic Root2.4 (2.0-3.7cm) PWd0.7 (0.7-1.1cm)Aortic Cusp Exc.1.7 (1.5-2.0cm) LVDs5.8 (2.5-4.0cm) PWs0.8 cm Mild left ventricular enlargement. Global left ventricular hypokinesis. Mild left ventricular hypertrophy. No evidence of pericardial fat or effusion. Large pleural effusion. Moderate right atrial and right ventricular enlargement. Severe left atrial enlargement. Mild focal aortic valve sclerosis with adequate cusp excursion.THERE ARE MOBILE DENSITIES ON THE LV SIDE OF THE AORTIC VALVE THESE MAY REPRESENT REVERBERRATION ARTIFACTS, HOWEVER VEGATATION NOT EXCLUDED YOLANDE CLIP IN PLACE Mildly thickened mitral valve leaflets with minimal excursion. Mild mitral annulus and aortic root calcification. Normal pulmonic valve structure. Normal tricuspid valve structure. mmHg. PACING WIRES NOTED IN THE RA AND RV A color flow and spectral Doppler study was performed and revealed: Mild aortic regurgitation. Moderate ECCENTRIC MEDIALLY DIRECTED mitral regurgitation. Mitral inflow indicat increased left atrial pressure, suggestive restrictive pattern (Grade III) SIG DIASTOLIC DYSFUCNTION AND ELEVATED LA PRESSURE Moderate to severe tricuspid regurgitation. Tricuspid systolic velocities suggests peak right ventricular systolic pressure of 59 mmHg, consistent with borderline severe pulmonary hypertension. Mild to moderate pulmonic regurgitation present.
[2016-09-12] MEDS: DOBUTamine 250mg/250ml Premix 250 ML IV SCH (17:56)
[2016-09-12] MEDS ORDERED: Sodium Chloride 550 ML IV SCH (21:00)
[2016-09-12] MEDS ORDERED: Zolpidem 5mg tab ORAL PRN (21:00)
[2016-09-12] MEDS ORDERED: Miralax 17gm pkt ORAL PRN (21:00)
--- NOTE | 2016-09-12 23:30 | Consultation ---
DATE OF CONSULTATION: 09/12/2016 CARDIOLOGY CONSULTATION CONSULTING PHYSICIAN: Malcom Martinez M.D. REFERRING PHYSICIAN: Torrie Kc M.D. REASON FOR REFERRAL: Congestive heart failure, hypotension, and cardiomyopathy. HISTORY OF PRESENT ILLNESS: This is an elderly female, who is known to me from a number of years, basically has a history of cardiomyopathy dilated secondary to chemotherapy that she received for breast cancer. She has a history of significant mitral regurgitation. She underwent MitraClip on a compassionate basis over the past few months, but has recurrent bouts of right lower extremity edema secondary to significant right heart failure and tricuspid regurgitation. She has recently been at [facility] and was discharged in July 2016 to a convalescent hospital. Apparently, she left against medical advice a few days ago and she was brought to the emergency room here at [facility], not clear to me why she left against medical advice from the convalescent facility, but brought in. Apparently, the staffing consultant run sheet indicates that she was found sitting in the wheelchair outside the apartment with complaints of weakness. No chest pain. No shortness of breath. No vomiting and no trauma. Caretakers on the scene indicated that the patient should be brought in to the hospital because she they felt that the patient may be dehydrated. She does not have any chest pain at this time. She is not short of breath at the moment and denies any dizziness. She does have a cough and sputum occasionally is yellow and occasionally white according to herself. She is rather confused however and the information that she is providing is questionable for accuracy at least in total. PAST MEDICAL HISTORY: 1. Positive for acute on chronic leg edema secondary to tricuspid regurgitation, secondary to pacing electrodes and significant TR, history of severe mitral regurgitation, status post MitraClip with subsequent moderate mitral regurgitation. 2. Right heart failure. 3. Left heart failure. 4. Pulmonary hypertension. 5. Nonischemic cardiomyopathy status post chemotherapy for breast cancer, history of septic syndrome, and history of urinary tract infection. 6. Diabetes mellitus, poor medication compliance. 7. History of diarrhea. 8. History of ICD generator malfunction, status post new generator replacement back in July 2016. 9. She has a history of pleural effusions. 10. She has had a history of breast cancer. 11. She has a history of thyroid cancer, unfortunately, it has not been treated because of significant risks from her cardiac condition. She has been treated with dobutamine infusions several times over the past six months with improvement in her condition. She does have a history of mastectomy and chemotherapy in 1999. She has a history of cardiomyopathy since then. She refused mitral valve surgery previously because of of [place] and risk of transfusions. She has hyperlipidemia and she has a history of cellulitis of her lower extremities on several occasions. ALLERGY: Penicillin and tramadol. SOCIAL HISTORY: Does not smoke or drink alcoholic beverages. She quit drinking because of cardiomyopathy several years ago. She used to work until just recently. 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 REVIEW OF SYSTEMS: Gastrointestinal: She denies any nausea, vomiting, or diarrhea. Genitourinary: She denies. Pulmonary: She does admit to coughing and sputum production. Constitutional: No fevers, chills, or night sweats. Neurologic: Confusion. PHYSICAL EXAMINATION: GENERAL: Shows her to be elderly female, appears to have a nasal voice. NECK: Supple. There is jugular venous distention. LUNGS: Relatively clear to auscultation and percussion. CARDIAC: S1 is normal. S2 is normal. Regular rate. Holosystolic regurgitant murmur is noted. No RV lift. ABDOMEN: Soft and obese. Positive bowel sounds. EXTREMITIES: A 2+ to 3+ edema of the lower extremities bilaterally, suddenly increased since the prior evaluation back in May 2016. LABORATORY AND DIAGNOSTIC DATA: White count of 2.9, hemoglobin 10.8, and platelet count of 331,000 with chemistries showing sodium 135, potassium 3.1, chloride 91, bicarbonate 29, BUN 12, creatinine 0.6, and glucose of 92. A1c of 6.8. Lactic acid of 2.3. ProBNP was not drawn. Troponin was less than 0.01. Albumin of 2.1. TSH of 2.1, total cholesterol of 146, and LDL of 73. Urinalysis shows 5 to 10 WBCs and 2 to 4 RBCs. A chest x-ray was performed in the emergency room that shows congestive heart failure with left-sided pleural effusion. Blood pressure has been anywhere between 83/55 to 139/51. ASSESSMENT: 1. Toxic metabolic encephalopathy. 2. Hyponatremia. 3. Dilated cardiomyopathy. 4. Severe tricuspid regurgitation. 5. Status post MitraClip for mitral regurgitation. 6. Mild pulmonary hypertension in the 40s. 7. History of recent cellulitis of lower extremities treated with prolonged courses of antibiotics. 8. Hypoalbuminemia. 9. Protein-calorie malnutrition. 10. Diabetes mellitus. 11. Breast cancer. 12. Thyroid cancer. PLAN: This patient has been seen in cardiac consultation. The patient would not need to be diuresed at the present time and in fact, I think may be a little bit of intravenous fluids may be in order, she may have received some. She does have significant edema. An infectious etiology to be looked into. She received dobutamine for help with the cardiac support. She had been on dobutamine back in July and July of 2016 at [facility], which she usually responds. I am certainly concerned about the possibility of upper respiratory tract infection. We will leave that to Dr. Kc, who is seeing the patient in Pulmonary consultation evaluation as well. Her diuretics will be on hold for a day or two until she does have improvement and subsequently, we will treat as she improves. Malcom Martinez M.D. DR: THADDEUS JOB#: [id number] CC:
--- NOTE | 2016-09-12 23:43 | Wound Care Consultation ---
Wound Assessment Wound Assessment #1: Wound Present on Admission: Yes New Wound: No Status Change of Wound: No Wound Location Body Site Modif: left Wound Location Body Site: buttocks Wound Type: pressure ulcer Michael Test: Does not Michael Pressure Ulcer Stage: II Wound Thickness: Partial Thickness Wound Length: 5.0 Wound Width: 2.5 Wound Depth: 0.1 Percent of Wound [place]/Red: 100 Wound Drainage Description: Serosanguineous Wound Drainage Amount: Scant Wound Drainage Odor: None/Absent Tissue Surrounding Wound: Erythemic Wound General Appearance: Reddened, Draining Wound Assessment #2: Wound Number: #2 Wound Present on Admission: Yes New Wound: No Status Change of Wound: No Wound Location Body Site Modif: right Wound Location Body Site: buttocks Wound Type: pressure ulcer Michael Test: Does not Michael Pressure Ulcer Stage: II Wound Thickness: Partial Thickness Wound Length: 6.0 Wound Width: 3.5 Wound Depth: 0.1 Percent of Wound [place]/Red: 100 Wound Drainage Description: Serosanguineous Wound Drainage Amount: Scant Wound Drainage Odor: None/Absent Tissue Surrounding Wound: Erythemic Wound General Appearance: Reddened, Draining Wound Assessment #3: Wound Number: #3 Wound Present on Admission: Yes New Wound: No Status Change of Wound: No Wound Location Body Site Modif: mid Wound Location Body Site: sacral Wound Type: pressure ulcer Michael Test: Does not Michael Pressure Ulcer Stage: deep tissue injury Wound Thickness: Full Thickness Wound Length: 6.5 Wound Width: 8.0 Wound Depth: utd Percent of Wound Purple/Maroon: 100 Wound Drainage Amount: None Wound Drainage Odor: None/Absent Tissue Surrounding Wound: Erythemic Wound General Appearance: Reddened - maroon Wound Comment #1 Left buttock stage II pressure ulcer #2 Right buttock stage II pressure ulcer #3 Perineal chemical burn with erosion #4 Sacral DTI pressure ulcer #5 Left and right lower legs with dry and flaky skin #6 Left and right feet with dry and flaky skin Recommendation -Sacral and left and right buttocks Cleanse with saline, pat dry, apply Triad cream, cover with bordered gauze daily and PRN soiled/dislodged -Keep clean dry -Turn and reposition -Low air loss mattress -Optimize nutrition -Offload both heels -Heel protector on both heels -Assess and f/u accordingly for any changes SHELLY JIMENEZ RN Sep 12, 2016 23:43
[2016-09-13] VITALS (47 sets, daily range): BP systolic 84–112; BP diastolic 47–89
--- NOTE | 2016-09-13 01:45 | Consultation ---
DATE OF CONSULTATION: 09/12/2016 NEUROLOGICAL CONSULTATION CONSULTING PHYSICIAN: Edgar Horan M.D. REQUESTING PHYSICIAN: Torrie Kc M.D. HISTORY OF PRESENT ILLNESS: The patient is a 75-year-old female, seen in neurological consultation to evaluate the new onset of profound generalized weakness and failure to thrive. The patient is known to be single, lives in the apartment. Paramedics on arrival, detected blood pressure 110/60, heart rate of 104, and respirations 14. The patient was found to be sitting in a wheelchair outside of her apartment complaining of profound generalized weakness. There was no chest pain, no vomiting and no nausea. She was oriented x3. There was no evidence of trauma She has a engineering scientist who informed that the patient to be brought to the hospital for dehydration and possible UTI. The patient was brought to emergency room where she was described as not being willing to talk. She was accompanied by her son. It was reported that prior to bringing to this hospital, she was on the ground for some time and not being eating or drinking with profound generalized weakness and inability to stand up and with this reason, 911 was called. On arrival, the patient has no complaints. Her vital signs were stable with heart rate of 104. She was dehydrated, dry lips and dry mucous membranes. Laboratory work was obtained. This revealed a CBC study with WBC of 3.5, and low MCH. Chemistry panel revealed low potassium 3.1, chloride of 89, carbon dioxide of 34, and calcium 7.8 with elevated lactic acid, albumin down to 2.6, normal TSH, unremarkable lipid panel, urinalysis 5 to 10 WBCs, 3+ leukocyte esterase, 2+ ketones and 3+ protein. Her chest x-ray revealed bilateral interstitial infiltrate, pacemaker in place. It felt that the patient has development of CHF with probable left pleural effusion. PAST MEDICAL HISTORY: The patient has an extensive medical history, which include coronary artery disease. She is on ICD. She has renal insufficiency, diabetes, history of hypertension, and congestive heart failure. MEDICATIONS: Treatment prior to admission included ascorbic acid, aspirin, labetalol, vitamin D, digoxin, Neurontin, [place] as needed, metolazone, multivitamins, simethicone, Januvia, Demadex, vitamin E supplement and zinc sulfate supplement. ALLERGIES: Penicillin. FAMILY HISTORY: The patient lives alone, but has a caregiver. There is no evidence of previous alcohol or drug abuse. She is nonsmoker. The patient has been on physical therapy at this facility in the past with several admissions. Most recent 07/31/2016, treated for dehydration, failure to thrive and general malaise. The patient was found protein-calorie malnutrition, mobility and hypertension. FAMILY HISTORY: Noncontributory. REVIEW OF SYMPTOMS: The patient indicated that she is feeling well thus she apparently is not coherent. PHYSICAL EXAMINATION: GENERAL: Well-developed, ill-appearing lady, who was just brought to ICU for further monitoring given her significant hypertension currently HEENT: Head is normocephalic. There is no evidence of trauma. Eyes, ears, and throat are clear. NECK: Supple. No meningeal signs. MUSCULOSKELETAL EXAMINATION: Remarkable for 2+ pitting edema both ankles. Significant venous stasis in both lower extremities. Acute tenderness on palpation both knees and ankles. The patient was moaning, groaning when touched. ABDOMEN: Somewhat distended. The patient was complaining of pain. EXTREMITIES: Peripheral pulses 1+ both upper extremity, unable to obtain both lower extremities. MENTAL STATUS: The patient is alert and oriented to her name, age, but gave incomplete address unable to describe her medical history. She has a very limited verbal output. She appears to be profoundly weak. CRANIAL NERVE II: Pupils both responding to light and accommodation. Extraocular movement full range. Visual rivas probably normal. Fundi poorly visualized. CRANIAL NERVE V: Normal corneal responses. CRANIAL NERVE VII: Minor facial asymmetry. CRANIAL NERVE VIII: Normal hearing. CRANIAL NERVE IX THROUGH XII: Tongue is in midline. Symmetric palate elevation. MOTOR EXAMINATION: Revealed diffuse rigidity in both upper and lower extremities. The patient was reluctant to move her lower extremities due to severe knee and ankle pain. Deep tendon reflexes depressed bilaterally including biceps, triceps, knee jerks and ankle jerks. Plantar responses are flexor. SENSORY EXAMINATION: Withdrawing to pin stimulation in both upper lower extremities, and not compliant with the position testing. Gait not tested. The patient apparently has difficulty ambulation probably contributed by significant arthritis as well as generalized weakness. IMPRESSION: 1. The patient is a 75-year-old female, who presents with multiple medical issues, now presenting with a profound generalized weakness, failure to thrive, and cognitive abnormalities rule out vascular dementia, rule out occult malignancy with encephalopathy. 2. Cardiomyopathy currently on automatic implanted cardioverter defibrillator. 3. Hypertension. 4. Diabetes type 2. 5. Degenerative joint disease. 6. Bilateral knee pain. 7. History of renal insufficiency. 8. Hypotension. RECOMMENDATION: 1. Occult malignancy workup including CT of the abdomen, pelvis and chest. 2. Calorie count. 3. Intravenous hydration. 4. Rehydration. 5. Laboratory work to include tumor markers, vitamin D, and vitamin A levels. 6. Serum protein electrophoresis. 7. Check venous duplex study of lower extremities. 8. Avoid polypharmacy. We will follow with you. Thank you for allowing me to see this interesting patient in neurological consultation. Edgar Horan M.D. DR: KATARZYNA JOB#: [id number] CC:
[2016-09-13 05:57] LABS: HEMOLYSIS 3; IRON 57 ug/dL (37-145); TOTAL IRON BINDING CAPACITY 212 ug/dL (250-400)
[2016-09-13 05:58] LABS: AMMONIA 37 umol/L (11-51)
[2016-09-13 06:15] LABS: ALANINE AMINOTRANSFERASE 10 U/L (3-33); ALBUMIN/GLOBULIN RATIO 0.6 (1.0-2.7); ANION GAP 9 (5-15); ASPARTATE AMINO TRANSFERASE 22 U/L (5-40); CALCIUM 7.1 mg/dL (8.6-10.2); CARBON DIOXIDE 31 mEQ/L (20-30); CHLORIDE 98 mEQ/L (98-107); CREATININE 0.5 mg/dL (0.5-0.9); CRP QUANT 1.3 mg/dL (< 0.5); MAGNESIUM 2.2 mg/dL (1.7-2.5); PHOSPHORUS 3.8 mg/dL (2.5-4.8); POTASSIUM 3.4 mEQ/L (3.4-4.9); SODIUM 138 mEQ/L (135-145); TOTAL PROTEIN 4.9 g/dL (6.6-8.7); URIC ACID 6.2 mg/dL (3.0-7.5)
[2016-09-13 06:16] LABS: FERRITIN 104 ng/mL (13-150)
[2016-09-13] MEDS: NovoLOG Insulin Flexpen SUBQ SCH ×4 (06:30→21:35)
[2016-09-13] MEDS: Digoxin 0.125mg tab ORAL SCH (08:22)
[2016-09-13] MEDS: Heparin 5000 units/ml inj SUBQ SCH ×2 (08:25→21:36)
[2016-09-13] MEDS ORDERED: Dyna-Hex 2% Top Sol 8oz TOPIC SCH (09:00)
[2016-09-13] MEDS: Dyna-Hex 2% Top Sol 8oz TOPIC SCH (09:00)
--- NOTE | 2016-09-13 09:33 | Cardiology Report ---
APPROVED REPORT EKG Measurement Heart [id number]
--- NOTE | 2016-09-13 10:25 | Pulmonolgy Critical Care Note ---
Critical Care - Asmt/Plan Problems: (1) Shock (2) ICD (implantable cardioverter-defibrillator) in place (3) Diabetes mellitus (4) Hypotension (5) Impaired mobility and ADLs Respiratory: monitor respiratory rate Cardiac: start pressors, continue pressors - titrate dobuamine Renal: keep IV fluid, check electrolytes Gastrointestinal: continue feedings/current rate Endocrine: monitor blood sugar Hematologic: monitor H/H, transfuse if hgb<8.5 Neurologic: PRN Ativan, PRN Morphine, keep patient comfortable Affect: PRN ativan Disposition: keep in ICU Notes Reviewed: cardio, renal Discussed with: nurses, consultants Critical Care - Objective Last 24 Hour Vital Signs Date Time Temp Pulse Resp B/P Pulse Ox O2 Delivery O2 Flow Rate FiO2 09/13/16 09:00 86 20 98/53 100 Nasal Cannula 2.0 09/13/16 08:30 90 20 100/66 100 Nasal Cannula 2.0 09/13/16 08:22 91 09/13/16 08:00 98.0 89 20 112/89 100 Nasal Cannula 2.0 09/13/16 08:00 84 09/13/16 07:31 Nasal Cannula 2.0 28 09/13/16 07:30 85 20 103/70 100 Nasal Cannula 2.0 09/13/16 07:30 98 Nasal Cannula 2.0 28 09/13/16 07:00 86 20 95/66 100 Nasal Cannula 2.0 09/13/16 06:30 96 25 93/61 100 Nasal Cannula 2.0 09/13/16 06:00 86 29 84/53 100 Nasal Cannula 2.0 09/13/16 05:30 88 18 93/58 100 Nasal Cannula 2.0 09/13/16 05:00 84 19 98/52 100 Nasal Cannula 2.0 09/13/16 04:30 89 24 91/61 100 Nasal Cannula 2.0 09/13/16 04:00 86 09/13/16 04:00 98.0 86 30 98/54 100 Nasal Cannula 2.0 09/13/16 03:30 89 25 94/55 100 Nasal Cannula 2.0 09/13/16 03:00 87 28 101/53 100 Nasal Cannula 2.0 09/13/16 02:30 88 22 95/57 100 Nasal Cannula 2.0 09/13/16 02:13 100 Nasal Cannula 2.0 09/13/16 02:00 86 20 90/58 100 Nasal Cannula 2.0 09/13/16 01:30 86 30 89/58 100 Nasal Cannula 2.0 09/13/16 01:00 89 29 95/62 100 Nasal Cannula 2.0 09/13/16 00:30 92 23 88/56 100 Nasal Cannula 2.0 09/13/16 00:00 98.8 90 13 99/58 100 Nasal Cannula 2.0 09/13/16 00:00 87 09/12/16 23:30 87 17 82/59 100 Nasal Cannula 2.0 09/12/16 23:00 86 17 96/60 100 Nasal Cannula 2.0 09/12/16 22:30 87 17 90/54 100 Nasal Cannula 2.0 09/12/16 22:00 91 24 86/50 100 Nasal Cannula 2.0 09/12/16 21:30 87 19 86/56 100 Nasal Cannula 2.0 09/12/16 21:00 88 24 82/51 100 Nasal Cannula 2.0 09/12/16 20:30 86 22 86/51 100 Nasal Cannula 2.0 09/12/16 20:00 98.3 89 25 89/89 100 Nasal Cannula 2.0 09/12/16 20:00 98 Nasal Cannula 2.0 28 09/12/16 20:00 88 09/12/16 20:00 Nasal Cannula 2.0 28 09/12/16 19:30 82 15 82/54 100 Nasal Cannula 2.0 09/12/16 19:00 81 21 80/50 100 Nasal Cannula 2.0 09/12/16 18:30 82 22 80/58 100 Nasal Cannula 2.0 09/12/16 18:00 84 20 86/50 100 Nasal Cannula 2.0 09/12/16 17:56 83/51 09/12/16 17:30 82 19 83/51 100 Nasal Cannula 2.0 09/12/16 17:00 97 19 88/44 100 Nasal Cannula 2.0 09/12/16 16:30 77 19 86/57 100 Nasal Cannula 2.0 09/12/16 16:00 98.1 81 20 108/75 100 Nasal Cannula 2.0 09/12/16 16:00 78 09/12/16 15:30 79 19 82/53 100 Nasal Cannula 2.0 09/12/16 15:00 82 19 83/55 100 Nasal Cannula 2.0 09/12/16 14:19 82 09/12/16 14:00 98.2 81 20 81/53 100 Nasal Cannula 2.0 09/12/16 13:51 88/51 09/12/16 12:53 90/52 09/12/16 12:30 86 101/56 09/12/16 12:00 97.0 84 17 87/48 97 Room Air Status: awake Condition: critical HEENT: atraumatic Lungs: clear, chest wall tender Heart: HR/BP stable, regular Abdomen: soft, active bowel sounds, feeding tube Extremities: edema Micro: Microbiology Date/Time Source Procedure Growth Status 09/11/16 18:20 Blood Blood Culture - Preliminary NO GROWTH AFTER 24 HOURS Resulted 09/11/16 18:12 Blood Blood Culture - Preliminary NO GROWTH AFTER 24 HOURS Resulted Accucheck: 64 Critical Care - Subjective ROS Limited/Unobtainable: No ICU Day: 2 EKG Rhythm: Sinus Rhythm FI02: 28 Drips: dobutamine drip I&O: Intake and Output 09/12/16 09/13/16 19:00 07:00 Intake Total 2160.342 ml 1294.104 ml Output Total 75 ml 110 ml Balance 2085.342 ml 1184.104 ml Intake Oral 120 ml IV Total 2160.342 ml 1174.104 ml Output Urine Total 75 ml 110 ml CXR: pulmonary edema Labs: Laboratory Tests Test 09/12/16 17:10 09/13/16 04:20 Total Protein (PEP) Pending Albumin (PEP) Pending Globulin (PEP) Pending Albumin/Globulin Ratio Pending 0.6 (1.0-2.7) L Ckzcq-2-Hdmdkldpw Pending Tlbgo-3-Ajortyqjk Pending Beta Globulins Pending Beta Gamma Globulin Pending PEP Abnormal Protein Bands Pending Protein Electrophoresis Interpret Pending CA 15-3 Antigen Pending CA 19-9 Antigen 35.22 U/mL (< 37) CA 27.29 Pending CA 125 Antigen Pending Vitamin D 25-Hydroxy Pending 25-Hydroxy Vitamin D2 Pending 25-Hydroxy Vitamin D3 Pending Alpha-Tocopherol Level Pending Sodium Level 138 mEQ/L (135-145) Potassium Level 3.4 mEQ/L (3.4-4.9) Chloride Level 98 mEQ/L (98-107) Carbon Dioxide Level 31 mEQ/L (20-30) H Anion Gap 9 (5-15) Blood Urea Nitrogen 11 mg/dL (7-23) Creatinine 0.5 mg/dL (0.5-0.9) Estimat Glomerular Filtration Rate mL/min (>60) Glucose Level 75 mg/dL (74-106) Lactic Acid Level 1.00 mmol/L (0.66-2.22) Uric Acid 6.2 mg/dL (3.0-7.5) Calcium Level 7.1 mg/dL (8.6-10.2) L Phosphorus Level 3.8 mg/dL (2.5-4.8) Magnesium Level 2.2 mg/dL (1.7-2.5) Iron Level 57 ug/dL (37-145) Total Iron Binding Capacity 212 ug/dL (250-400) L Percent Iron Saturation 27 % (15-50) Unsaturated Iron Binding 155 ug/dL (112-346) Ferritin 104 ng/mL (13-150) Total Bilirubin 0.6 mg/dL (0.0-1.2) Gamma Glutamyl Transpeptidase 30 U/L (5-36) Aspartate Amino Transf (AST/SGOT) 22 U/L (5-40) Alanine Aminotransferase (ALT/SGPT) 10 U/L (3-33) Alkaline Phosphatase 73 U/L (35-104) Ammonia 37 umol/L (11-51) Total Creatine Kinase 38 U/L (26-140) C-Reactive Protein, Quantitative 1.3 mg/dL (< 0.5) H Pro-B-Type Natriuretic Peptide 60437 pg/mL (0-125) H Total Protein 4.9 g/dL (6.6-8.7) L Albumin 1.9 g/dL (3.5-5.2) L Globulin 3.0 g/dL Vitamin B12 Level > 2000 pg/mL (211-946) H Folate Pending Anti-Nuclear Antibody Screen Pending ANGELA BERUMEN Sep 13, 2016 10:25
[2016-09-13] MEDS ORDERED: Lidocaine 1% Plain 30 ml INJ ONE ×2 (10:30→15:00)
[2016-09-13] MEDS ORDERED: Heparin 2000 units/Ns 1000ml INJ ONE ×2 (10:30→15:00)
[2016-09-13] MEDS ORDERED: Sodium Bicarbonate 4% 2.4meq/5ml vial INJ ONE ×2 (10:30→15:00)
--- NOTE | 2016-09-13 10:44 | General Progress Note ---
Assessment/Plan Status: unchanged Status Narrative In ICU on Dobutamin- Hypotensive- Assessment/Plan status: Proteinuria, likely Diabetic Nephropathy HypoAlbuminemia: Increase Loss vs Decrease production- UTI Anemia Failure to thrive / Dehydration Pacer severe cardiomyopathy Ej Fx 20% Low Ca , corrects with Low Alb Plan; optimize cardiac status Anemia hauser- K supplement- 24 H urine for protein- monitor renal parameters gastric support- stop [facility]- 2D Echo : Low EjFx per orders Subjective ROS Limited/Unobtainable: No Constitutional: Reports: malaise, other - in ICU for low BP, weakness Allergies: Coded Allergies: PENICILLIN (Verified Allergy, Unknown, Rash, 03/30/15) Objective Last 24 Hour Vital Signs Date Time Temp Pulse Resp B/P Pulse Ox O2 Delivery O2 Flow Rate FiO2 09/13/16 09:00 86 20 98/53 100 Nasal Cannula 2.0 09/13/16 08:30 90 20 100/66 100 Nasal Cannula 2.0 09/13/16 08:22 91 09/13/16 08:00 98.0 89 20 112/89 100 Nasal Cannula 2.0 09/13/16 08:00 84 09/13/16 07:31 Nasal Cannula 2.0 28 09/13/16 07:30 85 20 103/70 100 Nasal Cannula 2.0 09/13/16 07:30 98 Nasal Cannula 2.0 28 09/13/16 07:00 86 20 95/66 100 Nasal Cannula 2.0 09/13/16 06:30 96 25 93/61 100 Nasal Cannula 2.0 09/13/16 06:00 86 29 84/53 100 Nasal Cannula 2.0 09/13/16 05:30 88 18 93/58 100 Nasal Cannula 2.0 09/13/16 05:00 84 19 98/52 100 Nasal Cannula 2.0 09/13/16 04:30 89 24 91/61 100 Nasal Cannula 2.0 09/13/16 04:00 86 09/13/16 04:00 98.0 86 30 98/54 100 Nasal Cannula 2.0 09/13/16 03:30 89 25 94/55 100 Nasal Cannula 2.0 09/13/16 03:00 87 28 101/53 100 Nasal Cannula 2.0 09/13/16 02:30 88 22 95/57 100 Nasal Cannula 2.0 09/13/16 02:13 100 Nasal Cannula 2.0 09/13/16 02:00 86 20 90/58 100 Nasal Cannula 2.0 09/13/16 01:30 86 30 89/58 100 Nasal Cannula 2.0 09/13/16 01:00 89 29 95/62 100 Nasal Cannula 2.0 09/13/16 00:30 92 23 88/56 100 Nasal Cannula 2.0 09/13/16 00:00 98.8 90 13 99/58 100 Nasal Cannula 2.0 09/13/16 00:00 87 09/12/16 23:30 87 17 82/59 100 Nasal Cannula 2.0 09/12/16 23:00 86 17 96/60 100 Nasal Cannula 2.0 09/12/16 22:30 87 17 90/54 100 Nasal Cannula 2.0 09/12/16 22:00 91 24 86/50 100 Nasal Cannula 2.0 09/12/16 21:30 87 19 86/56 100 Nasal Cannula 2.0 09/12/16 21:00 88 24 82/51 100 Nasal Cannula 2.0 09/12/16 20:30 86 22 86/51 100 Nasal Cannula 2.0 09/12/16 20:00 98.3 89 25 89/89 100 Nasal Cannula 2.0 09/12/16 20:00 98 Nasal Cannula 2.0 28 09/12/16 20:00 88 09/12/16 20:00 Nasal Cannula 2.0 28 09/12/16 19:30 82 15 82/54 100 Nasal Cannula 2.0 09/12/16 19:00 81 21 80/50 100 Nasal Cannula 2.0 09/12/16 18:30 82 22 80/58 100 Nasal Cannula 2.0 09/12/16 18:00 84 20 86/50 100 Nasal Cannula 2.0 09/12/16 17:56 83/51 09/12/16 17:30 82 19 83/51 100 Nasal Cannula 2.0 09/12/16 17:00 97 19 88/44 100 Nasal Cannula 2.0 09/12/16 16:30 77 19 86/57 100 Nasal Cannula 2.0 09/12/16 16:00 98.1 81 20 108/75 100 Nasal Cannula 2.0 09/12/16 16:00 78 09/12/16 15:30 79 19 82/53 100 Nasal Cannula 2.0 09/12/16 15:00 82 19 83/55 100 Nasal Cannula 2.0 09/12/16 14:19 82 09/12/16 14:00 98.2 81 20 81/53 100 Nasal Cannula 2.0 09/12/16 13:51 88/51 09/12/16 12:53 90/52 09/12/16 12:30 86 101/56 09/12/16 12:00 97.0 84 17 87/48 97 Room Air Intake and Output 09/12/16 09/13/16 19:00 07:00 Intake Total 2160.342 ml 1294.104 ml Output Total 75 ml 110 ml Balance 2085.342 ml 1184.104 ml Intake Oral 120 ml IV Total 2160.342 ml 1174.104 ml Output Urine Total 75 ml 110 ml Laboratory Tests 09/12/16 17:10: Total Protein (PEP) [Pending], Albumin (PEP) [Pending], Globulin (PEP) [Pending] , Albumin/Globulin Ratio [Pending], Iigxe-6-Hoyxpbllk [Pending], Alpha-2- Globulins [Pending], Beta Globulins [Pending], Beta Gamma Globulin [Pending], PEP Abnormal Protein Bands [Pending], Protein Electrophoresis Interpret [Pending ], CA 15-3 Antigen [Pending], CA 19-9 Antigen 35.22, CA 27.29 [Pending], CA 125 Antigen [Pending], Vitamin D 25-Hydroxy [Pending], 25-Hydroxy Vitamin D2 [ Pending], 25-Hydroxy Vitamin D3 [Pending], Alpha-Tocopherol Level [Pending] 09/13/16 04:20: Albumin/Globulin Ratio 0.6L, Sodium Level 138, Potassium Level 3.4, Chloride Level 98, Carbon Dioxide Level 31H, Anion Gap 9, Blood Urea Nitrogen 11, Creatinine 0.5, Estimat Glomerular Filtration Rate , Glucose Level 75, Lactic Acid Level 1.00, Uric Acid 6.2, Calcium Level 7.1L, Phosphorus Level 3.8, Magnesium Level 2.2, Iron Level 57, Total Iron Binding Capacity 212L, Percent Iron Saturation 27, Unsaturated Iron Binding 155, Ferritin 104, Total Bilirubin 0.6, Gamma Glutamyl Transpeptidase 30, Aspartate Amino Transf (AST/SGOT) 22, Alanine Aminotransferase (ALT/SGPT) 10, Alkaline Phosphatase 73, Ammonia 37, Total Creatine Kinase 38, C-Reactive Protein, Quantitative 1.3H, Pro-B-Type Natriuretic Peptide 24556O, Total Protein 4.9L, Albumin 1.9L, Globulin 3.0, Vitamin B12 Level > 2000H, Folate [Pending], Anti-Nuclear Antibody Screen [ Pending] Height (Feet): 5 Height (Inches): 4.00 Weight (Pounds): 157 General Appearance: lethargic, mild distress Cardiovascular: tachycardia Respiratory/Chest: decreased breath sounds Abdomen: distended FAUZIA MAYA Sep 13, 2016 10:44
--- NOTE | 2016-09-13 12:53 | Geriatric Progress Note ---
Assessment/Plan Assessment/Plan The pt may not leave AMA. Lacks capacity. rec sniff no meds at this time Subjective Constitutional: Reports: malaise, weakness Psychiatric: Reports: see [facility] Geriatric Geriatric Last 24 Hour Vital Signs Date Time Temp Pulse Resp B/P Pulse Ox O2 Delivery O2 Flow Rate FiO2 09/13/16 10:00 90 19 96/63 100 Nasal Cannula 2.0 09/13/16 09:00 86 20 98/53 100 Nasal Cannula 2.0 09/13/16 08:30 90 20 100/66 100 Nasal Cannula 2.0 09/13/16 08:22 91 09/13/16 08:00 98.0 89 20 112/89 100 Nasal Cannula 2.0 09/13/16 08:00 84 09/13/16 07:31 Nasal Cannula 2.0 28 09/13/16 07:30 85 20 103/70 100 Nasal Cannula 2.0 09/13/16 07:30 98 Nasal Cannula 2.0 28 09/13/16 07:00 86 20 95/66 100 Nasal Cannula 2.0 09/13/16 06:30 96 25 93/61 100 Nasal Cannula 2.0 09/13/16 06:00 86 29 84/53 100 Nasal Cannula 2.0 09/13/16 05:30 88 18 93/58 100 Nasal Cannula 2.0 09/13/16 05:00 84 19 98/52 100 Nasal Cannula 2.0 09/13/16 04:30 89 24 91/61 100 Nasal Cannula 2.0 09/13/16 04:00 86 09/13/16 04:00 98.0 86 30 98/54 100 Nasal Cannula 2.0 09/13/16 03:30 89 25 94/55 100 Nasal Cannula 2.0 09/13/16 03:00 87 28 101/53 100 Nasal Cannula 2.0 09/13/16 02:30 88 22 95/57 100 Nasal Cannula 2.0 09/13/16 02:13 100 Nasal Cannula 2.0 09/13/16 02:00 86 20 90/58 100 Nasal Cannula 2.0 09/13/16 01:30 86 30 89/58 100 Nasal Cannula 2.0 09/13/16 01:00 89 29 95/62 100 Nasal Cannula 2.0 09/13/16 00:30 92 23 88/56 100 Nasal Cannula 2.0 09/13/16 00:00 98.8 90 13 99/58 100 Nasal Cannula 2.0 09/13/16 00:00 87 09/12/16 23:30 87 17 82/59 100 Nasal Cannula 2.0 09/12/16 23:00 86 17 96/60 100 Nasal Cannula 2.0 09/12/16 22:30 87 17 90/54 100 Nasal Cannula 2.0 09/12/16 22:00 91 24 86/50 100 Nasal Cannula 2.0 09/12/16 21:30 87 19 86/56 100 Nasal Cannula 2.0 09/12/16 21:00 88 24 82/51 100 Nasal Cannula 2.0 09/12/16 20:30 86 22 86/51 100 Nasal Cannula 2.0 09/12/16 20:00 98.3 89 25 89/89 100 Nasal Cannula 2.0 09/12/16 20:00 98 Nasal Cannula 2.0 28 09/12/16 20:00 88 09/12/16 20:00 Nasal Cannula 2.0 28 09/12/16 19:30 82 15 82/54 100 Nasal Cannula 2.0 09/12/16 19:00 81 21 80/50 100 Nasal Cannula 2.0 09/12/16 18:30 82 22 80/58 100 Nasal Cannula 2.0 09/12/16 18:00 84 20 86/50 100 Nasal Cannula 2.0 09/12/16 17:56 83/51 09/12/16 17:30 82 19 83/51 100 Nasal Cannula 2.0 09/12/16 17:00 97 19 88/44 100 Nasal Cannula 2.0 09/12/16 16:30 77 19 86/57 100 Nasal Cannula 2.0 09/12/16 16:00 98.1 81 20 108/75 100 Nasal Cannula 2.0 09/12/16 16:00 78 09/12/16 15:30 79 19 82/53 100 Nasal Cannula 2.0 09/12/16 15:00 82 19 83/55 100 Nasal Cannula 2.0 09/12/16 14:19 82 09/12/16 14:00 98.2 81 20 81/53 100 Nasal Cannula 2.0 09/12/16 13:51 88/51 09/12/16 12:53 90/52 Intake and Output 09/12/16 09/13/16 19:00 07:00 Intake Total 2160.342 ml 1294.104 ml Output Total 75 ml 110 ml Balance 2085.342 ml 1184.104 ml Intake Oral 120 ml IV Total 2160.342 ml 1174.104 ml Output Urine Total 75 ml 110 ml Laboratory Tests Test 09/12/16 17:10 09/13/16 04:20 Total Protein (PEP) Pending Albumin (PEP) Pending Globulin (PEP) Pending Albumin/Globulin Ratio Pending 0.6 (1.0-2.7) L Zrxkc-4-Haeqcmtee Pending Bkghe-5-Kudarcgmq Pending Beta Globulins Pending Beta Gamma Globulin Pending PEP Abnormal Protein Bands Pending Protein Electrophoresis Interpret Pending CA 15-3 Antigen Pending CA 19-9 Antigen 35.22 U/mL (< 37) CA 27.29 Pending CA 125 Antigen Pending Vitamin D 25-Hydroxy Pending 25-Hydroxy Vitamin D2 Pending 25-Hydroxy Vitamin D3 Pending Alpha-Tocopherol Level Pending Sodium Level 138 mEQ/L (135-145) Potassium Level 3.4 mEQ/L (3.4-4.9) Chloride Level 98 mEQ/L (98-107) Carbon Dioxide Level 31 mEQ/L (20-30) H Anion Gap 9 (5-15) Blood Urea Nitrogen 11 mg/dL (7-23) Creatinine 0.5 mg/dL (0.5-0.9) Estimat Glomerular Filtration Rate mL/min (>60) Glucose Level 75 mg/dL (74-106) Lactic Acid Level 1.00 mmol/L (0.66-2.22) Uric Acid 6.2 mg/dL (3.0-7.5) Calcium Level 7.1 mg/dL (8.6-10.2) L Phosphorus Level 3.8 mg/dL (2.5-4.8) Magnesium Level 2.2 mg/dL (1.7-2.5) Iron Level 57 ug/dL (37-145) Total Iron Binding Capacity 212 ug/dL (250-400) L Percent Iron Saturation 27 % (15-50) Unsaturated Iron Binding 155 ug/dL (112-346) Ferritin 104 ng/mL (13-150) Total Bilirubin 0.6 mg/dL (0.0-1.2) Gamma Glutamyl Transpeptidase 30 U/L (5-36) Aspartate Amino Transf (AST/SGOT) 22 U/L (5-40) Alanine Aminotransferase (ALT/SGPT) 10 U/L (3-33) Alkaline Phosphatase 73 U/L (35-104) Ammonia 37 umol/L (11-51) Total Creatine Kinase 38 U/L (26-140) C-Reactive Protein, Quantitative 1.3 mg/dL (< 0.5) H Pro-B-Type Natriuretic Peptide 53785 pg/mL (0-125) H Total Protein 4.9 g/dL (6.6-8.7) L Albumin 1.9 g/dL (3.5-5.2) L Globulin 3.0 g/dL Vitamin B12 Level > 2000 pg/mL (211-946) H Folate Pending Anti-Nuclear Antibody Screen Pending Current Medications Medications (Trade) Dose Ordered Sig/Michael Route PRN Reason Start Time Stop Time Status Last Admin Dose Admin Acetaminophen (Tylenol) 650 mg Q4H PRN ORAL fever 09/12/16 14:30 10/12/16 14:29 Chlorhexidine Gluconate (Jessy-Hex 2%) 1 applic DAILY TOPIC 09/13/16 09:00 10/13/16 08:59 Dextrose (Dextrose 50%) STAT PRN IV Hypoglycemia 09/12/16 14:30 10/12/16 14:29 Digoxin (Lanoxin) 0.125 mg DAILY ORAL 09/13/16 09:00 10/13/16 08:59 09/13/16 08:22 Dobutamine HCl (Dobutrex) 250 ml @ 10.342 mls/ hr Q24H IV 09/12/16 17:55 10/12/16 17:54 09/12/16 17:56 Heparin Sodium (Porcine) (Heparin 5000 units/ml) 5,000 units EVERY 12 HOURS SUBQ 09/12/16 21:00 10/12/16 20:59 09/13/16 08:25 Insulin Aspart (NovoLOG) BEFORE MEALS AND HS SUBQ 09/12/16 16:30 10/12/16 16:29 09/13/16 12:14 Lorazepam (Ativan 2mg/ml 1ml) 0.5 mg Q4H PRN IV For Anxiety 09/12/16 14:30 09/19/16 14:29 Morphine Sulfate (Morphine Sulfate) 1 mg Q4H PRN IVP For Pain 09/12/16 14:45 09/19/16 14:44 Ondansetron HCl (Zofran) 4 mg Q6H PRN IVP Nausea & Vomiting 09/12/16 14:30 10/12/16 14:29 Pantoprazole (Protonix) 40 mg BID ORAL 09/12/16 18:00 10/12/16 17:59 09/13/16 08:29 Polyethylene Glycol (Miralax) 17 gm HSPRN PRN ORAL Constipation 09/12/16 21:00 10/12/16 20:59 Potassium Chloride (K-Dur) 40 meq TWICE A DAY ORAL 09/12/16 18:00 09/13/16 17:59 09/13/16 08:23 Zolpidem Tartrate 5 mg 5 mg HSPRN PRN ORAL Insomnia 09/12/16 21:00 10/12/16 20:59 Height (Feet): 5 Height (Inches): 4.00 Weight (Pounds): 157 General Appearance: no apparent distress, alert, cachetic Neurologic: alert, oriented x3, responsive Psychiatric: depressed affect Psychiatric Behavior: cooperative Language/Speech: intact, fluent Orientation: person, place, situation Affect: flat Insight: poor Memory: other - impaired Nba Davis M.D. Sep 13, 2016 12:53
--- NOTE | 2016-09-13 16:24 | Diagnostic Imaging Report ---
Indications: Needs long-term IV access Technique: Procedure performed at bedside. Procedural timeout performed. Ultrasound confirms patent compressible right brachial vein. Total sterile technique, including sterile probe cover and sterile gel, sterile gloves, hand hygiene, hat, mask,, sterile gown, large sterile drape, and preparation with 2% chlorhexidine utilized. Local anesthesia with 1% lidocaine. Under real-time ultrasound guidance, puncture brachial vein using 21-gauge needle, passage 0.018 guidewire, exchange for 5 Nigerian peel-away sheath. 5 Nigerian Bard dual-lumen power PICC cut to 34 cm. It was inserted through the peel-away sheath. Peel-away sheath and guidewire removed. Catheter fixed to the skin. Both catheter ports aspirated and flushed. Patient tolerated procedure well, without immediate complication. Followup chest x-ray obtained, documents catheter tip position at the mid superior vena cava Impression: Successful bedside placement of right arm PICC under sonographic guidance, as described above.
[2016-09-13] MEDS ORDERED: DOBUTamine 250mg/250ml Premix 250 ML IV SCH (18:00)
[2016-09-13] MEDS: DOBUTamine 250mg/250ml Premix 250 ML IV SCH ×2 (18:20→19:24)
--- NOTE | 2016-09-13 18:23 | Cardiology Progress Note ---
Assessment/Plan Assessment/Plan hypotension chronic systolic failure with acute component right heart fialure dcm ef 10-15% hs of sig mr s/p mitraclip sever TR peripheral edema due to tr recent cellulitis dm metabolic encephalopathy breast cancer hs recent dx fo thryoid cancer not treated surgically due to poor cardiac status ? bronchitis vs sinusitis av abn noted maybe reverberration artifact bp is better today but still lwo at time s dobutamine increae to 3.5 mcg today will starton lasix 20 mg iv bid for her edema keep on monitor once stagble will trasfer to jacob oob in a chair soon orthosttic vital to day d/w dr manzanares yest blood cx are neg at 24 hour off abx still enzo keep monitoring will need labs in am is quite ill and at risk of dying need contineu critical care for dobutamin titration Subjective Cardiovascular: Denies: chest pain, lightheadedness, palpitations Respiratory: Denies: shortness of breath Genitourinary: Denies: burning Subjective co buttock pain Objective Last 24 Hour Vital Signs Date Time Temp Pulse Resp B/P Pulse Ox O2 Delivery O2 Flow Rate FiO2 09/13/16 17:30 74 18 98/62 100 Nasal Cannula 2.0 09/13/16 17:00 74 18 100/57 100 Nasal Cannula 2.0 09/13/16 16:30 98.6 92 20 102/65 98 Nasal Cannula 2.0 09/13/16 16:00 92 20 95/58 98 Nasal Cannula 2.0 09/13/16 16:00 92 09/13/16 15:30 100 16 90/56 100 Nasal Cannula 2.0 09/13/16 15:00 98.5 67 19 104/57 100 Nasal Cannula 2.0 09/13/16 14:30 93 25 90/61 100 Nasal Cannula 2.0 09/13/16 14:00 91 18 101/59 100 Nasal Cannula 2.0 09/13/16 13:30 92 17 101/59 100 Nasal Cannula 2.0 09/13/16 13:00 108 16 92/58 100 Nasal Cannula 2.0 09/13/16 12:30 95 16 92/51 100 Nasal Cannula 2.0 09/13/16 12:00 89 09/13/16 12:00 98.0 91 23 95/58 100 Nasal Cannula 2.0 09/13/16 11:30 91 13 97/63 100 Nasal Cannula 2.0 09/13/16 11:00 92 18 90/56 100 Nasal Cannula 2.0 09/13/16 10:30 101 18 95/60 100 Nasal Cannula 2.0 09/13/16 10:00 90 19 96/63 100 Nasal Cannula 2.0 09/13/16 09:30 95 20 90/53 100 Nasal Cannula 2.0 09/13/16 09:00 86 20 98/53 100 Nasal Cannula 2.0 09/13/16 08:30 90 20 100/66 100 Nasal Cannula 2.0 09/13/16 08:22 91 09/13/16 08:00 98.0 89 20 112/89 100 Nasal Cannula 2.0 09/13/16 08:00 84 09/13/16 07:31 Nasal Cannula 2.0 28 09/13/16 07:30 85 20 103/70 100 Nasal Cannula 2.0 09/13/16 07:30 98 Nasal Cannula 2.0 28 09/13/16 07:00 86 20 95/66 100 Nasal Cannula 2.0 09/13/16 06:30 96 25 93/61 100 Nasal Cannula 2.0 09/13/16 06:00 86 29 84/53 100 Nasal Cannula 2.0 09/13/16 05:30 88 18 93/58 100 Nasal Cannula 2.0 09/13/16 05:00 84 19 98/52 100 Nasal Cannula 2.0 09/13/16 04:30 89 24 91/61 100 Nasal Cannula 2.0 09/13/16 04:00 86 09/13/16 04:00 98.0 86 30 98/54 100 Nasal Cannula 2.0 09/13/16 03:30 89 25 94/55 100 Nasal Cannula 2.0 09/13/16 03:00 87 28 101/53 100 Nasal Cannula 2.0 09/13/16 02:30 88 22 95/57 100 Nasal Cannula 2.0 09/13/16 02:13 100 Nasal Cannula 2.0 09/13/16 02:00 86 20 90/58 100 Nasal Cannula 2.0 09/13/16 01:30 86 30 89/58 100 Nasal Cannula 2.0 09/13/16 01:00 89 29 95/62 100 Nasal Cannula 2.0 09/13/16 00:30 92 23 88/56 100 Nasal Cannula 2.0 09/13/16 00:00 98.8 90 13 99/58 100 Nasal Cannula 2.0 09/13/16 00:00 87 09/12/16 23:30 87 17 82/59 100 Nasal Cannula 2.0 09/12/16 23:00 86 17 96/60 100 Nasal Cannula 2.0 09/12/16 22:30 87 17 90/54 100 Nasal Cannula 2.0 09/12/16 22:00 91 24 86/50 100 Nasal Cannula 2.0 09/12/16 21:30 87 19 86/56 100 Nasal Cannula 2.0 09/12/16 21:00 88 24 82/51 100 Nasal Cannula 2.0 09/12/16 20:30 86 22 86/51 100 Nasal Cannula 2.0 09/12/16 20:00 98.3 89 25 89/89 100 Nasal Cannula 2.0 09/12/16 20:00 98 Nasal Cannula 2.0 28 09/12/16 20:00 88 09/12/16 20:00 Nasal Cannula 2.0 28 09/12/16 19:30 82 15 82/54 100 Nasal Cannula 2.0 09/12/16 19:00 81 21 80/50 100 Nasal Cannula 2.0 09/12/16 18:30 82 22 80/58 100 Nasal Cannula 2.0 General Appearance: no apparent distress, alert Neck: supple Cardiovascular: normal rate, regular rhythm Respiratory/Chest: lungs clear, normal breath sounds Abdomen: normal bowel sounds, non tender, soft Extremities: normal range of motion, non-tender, severe edema Intake and Output 09/12/16 09/13/16 19:00 07:00 Intake Total 2160.342 ml 1294.104 ml Output Total 75 ml 110 ml Balance 2085.342 ml 1184.104 ml Intake Oral 120 ml IV Total 2160.342 ml 1174.104 ml Output Urine Total 75 ml 110 ml Laboratory Tests Test 09/13/16 04:20 Sodium Level 138 mEQ/L (135-145) Potassium Level 3.4 mEQ/L (3.4-4.9) Chloride Level 98 mEQ/L (98-107) Carbon Dioxide Level 31 mEQ/L (20-30) H Anion Gap 9 (5-15) Blood Urea Nitrogen 11 mg/dL (7-23) Creatinine 0.5 mg/dL (0.5-0.9) Estimat Glomerular Filtration Rate mL/min (>60) Glucose Level 75 mg/dL (74-106) Lactic Acid Level 1.00 mmol/L (0.66-2.22) Uric Acid 6.2 mg/dL (3.0-7.5) Calcium Level 7.1 mg/dL (8.6-10.2) L Phosphorus Level 3.8 mg/dL (2.5-4.8) Magnesium Level 2.2 mg/dL (1.7-2.5) Iron Level 57 ug/dL (37-145) Total Iron Binding Capacity 212 ug/dL (250-400) L Percent Iron Saturation 27 % (15-50) Unsaturated Iron Binding 155 ug/dL (112-346) Ferritin 104 ng/mL (13-150) Total Bilirubin 0.6 mg/dL (0.0-1.2) Gamma Glutamyl Transpeptidase 30 U/L (5-36) Aspartate Amino Transf (AST/SGOT) 22 U/L (5-40) Alanine Aminotransferase (ALT/SGPT) 10 U/L (3-33) Alkaline Phosphatase 73 U/L (35-104) Ammonia 37 umol/L (11-51) Total Creatine Kinase 38 U/L (26-140) C-Reactive Protein, Quantitative 1.3 mg/dL (< 0.5) H Pro-B-Type Natriuretic Peptide 58018 pg/mL (0-125) H Total Protein 4.9 g/dL (6.6-8.7) L Albumin 1.9 g/dL (3.5-5.2) L Globulin 3.0 g/dL Albumin/Globulin Ratio 0.6 (1.0-2.7) L Vitamin B12 Level > 2000 pg/mL (211-946) H Folate Pending Anti-Nuclear Antibody Screen Pending Microbiology Date/Time Source Procedure Growth Status 09/11/16 18:20 Blood Blood Culture - Preliminary NO GROWTH AFTER 24 HOURS Resulted 09/11/16 18:12 Blood Blood Culture - Preliminary NO GROWTH AFTER 24 HOURS Resulted MARSHALL ROJO Sep 13, 2016 18:23
--- NOTE | 2016-09-13 20:45 | Consultation ---
DATE OF CONSULTATION: 09/12/2016 HISTORY OF PRESENT ILLNESS: The patient is a 75-year-old female with multiple medical problems, who has been admitted to the hospital. Apparently, the patient was discharged from the hospital was returned as she was found on the ground at her house. The patient presented with waxing and waning consciousness and not engaged during the evaluation. Poor insight and judgment. I saw the patient on 2016. The patient was presenting with impairment of concentration, memory, attention and not engaged during the evaluation. The patient was unable to understand process, communicate, or appreciate. Information was given to her. PAST PSYCHIATRIC HISTORY: Cognitive impairment. The patient also has been treated with antidepressants in the past. PAST MEDICAL HISTORY: Significant for cardiomyopathy, ICD, hypertension, and neuropathy. ALLERGIES: Penicillin. SUBSTANCE ABUSE HISTORY: No history of illicit drug use or alcohol. MENTAL STATUS EXAMINATION: The patient presents with waxing and waning consciousness. Mood is neutral. Affect is constricted. Congruent mood. Thought process is concrete. Thought content, no suicidal or homicidal ideation. ASSESSMENT: AXIS I Cognitive impairment and delirium. AXIS II Deferred. AXIS III As above. AXIS IV Moderate. AXIS V Global assessment of functioning is 20. PLAN: The patient is currently being treated for Ativan for anxiety. No medication at this time. We will continue to follow . Nba Davis M.D. DR: Rajesh JOB#: [id number] CC:
[2016-09-14] VITALS (31 sets, daily range): BP systolic 81–103; BP diastolic 46–74
[2016-09-14 05:23] LABS: MEAN CORPUSCULAR HEMOGLOBIN 26.5 PG (27.0-31.0); MEAN CORPUSCULAR VOLUME 80 FL (80-99); MEAN PLATELET VOLUME 8.5 FL (6.5-10.1); PLATELET COUNT 325 K/UL (150-450); RED CELL DISTRIBUTION WIDTH 16.8 % (11.6-14.8); WHITE BLOOD COUNT 3.8 K/UL (4.8-10.8)
[2016-09-14 05:49] LABS: TROPONIN I < 0.30 ng/mL (<=0.30)
[2016-09-14 05:52] LABS: ALANINE AMINOTRANSFERASE 8 U/L (3-33); ALBUMIN/GLOBULIN RATIO 0.6 (1.0-2.7); ANION GAP 10 (5-15); ASPARTATE AMINO TRANSFERASE 19 U/L (5-40); CARBON DIOXIDE 31 mEQ/L (20-30); CHLORIDE 95 mEQ/L (98-107); CREATININE 0.6 mg/dL (0.5-0.9); HEMOLYSIS 3; POTASSIUM 3.5 mEQ/L (3.4-4.9); SODIUM 136 mEQ/L (135-145); TOTAL PROTEIN 4.9 g/dL (6.6-8.7)
[2016-09-14 05:53] LABS: MAGNESIUM 2.1 mg/dL (1.7-2.5); PHOSPHORUS 3.1 mg/dL (2.5-4.8); URIC ACID 5.8 mg/dL (3.0-7.5)
[2016-09-14] MEDS: NovoLOG Insulin Flexpen SUBQ SCH ×4 (06:30→20:59)
[2016-09-14] MEDS: Digoxin 0.125mg tab ORAL SCH (08:59)
[2016-09-14] MEDS: Heparin 5000 units/ml inj SUBQ SCH ×2 (09:00→20:58)
[2016-09-14] MEDS: Dyna-Hex 2% Top Sol 8oz TOPIC SCH (09:07)
[2016-09-14] MEDS ORDERED: DOBUTamine 250mg/250ml Premix 250 ML IV ONE (11:21)
[2016-09-14] MEDS: DOBUTamine 250mg/250ml Premix 250 ML IV SCH ×2 (11:22→18:12)
--- NOTE | 2016-09-14 11:25 | Pulmonolgy Critical Care Note ---
Critical Care - Asmt/Plan Problems: (1) Shock (2) ICD (implantable cardioverter-defibrillator) in place (3) Diabetes mellitus (4) Hypotension (5) Impaired mobility and ADLs Respiratory: adjust tidal volume, monitor respiratory rate, adjust FIO2 Cardiac: start pressors - add dopamin, continue pressors Renal: F/U I&O, check electrolytes Infectious Disease: check cultures, continue antibiotics Gastrointestinal: continue feedings/current rate Endocrine: monitor blood sugar, check TSH, continue sliding scale insulin Hematologic: transfuse if hgb<8.5 Neurologic: PRN Ativan, PRN Morphine, keep patient comfortable Affect: PRN ativan Prophylaxis: Protonix, Heparin Notes Reviewed: powder shoveler, renal Discussed with: nurses, consultants, caser [employer] and iot manager - Objective Last 24 Hour Vital Signs Date Time Temp Pulse Resp B/P Pulse Ox O2 Delivery O2 Flow Rate FiO2 09/14/16 11:00 92 12 96/51 100 Nasal Cannula 2.0 09/14/16 10:00 93 18 92/53 99 Nasal Cannula 2.0 09/14/16 09:06 91 17 91/46 100 Nasal Cannula 2.0 09/14/16 09:00 88 17 89/57 100 Nasal Cannula 2.0 09/14/16 08:59 87 09/14/16 08:10 99 19 81/49 100 Nasal Cannula 2.0 09/14/16 08:05 82 19 87/53 100 Nasal Cannula 2.0 09/14/16 08:00 98.6 87 23 94/53 100 Nasal Cannula 2.0 09/14/16 08:00 87 09/14/16 07:00 84 19 87/53 100 Nasal Cannula 2.0 09/14/16 06:30 89 24 86/50 100 Nasal Cannula 2.0 09/14/16 06:00 86 16 96/61 100 Nasal Cannula 2.0 09/14/16 05:30 86 17 98/56 100 Nasal Cannula 2.0 09/14/16 05:00 86 20 93/56 100 Nasal Cannula 2.0 09/14/16 04:30 86 18 89/55 100 Nasal Cannula 2.0 09/14/16 04:00 98.1 86 17 93/59 100 Nasal Cannula 2.0 09/14/16 04:00 86 09/14/16 03:30 86 18 87/53 100 Nasal Cannula 2.0 09/14/16 03:00 85 101/74 100 Nasal Cannula 2.0 09/14/16 02:30 90 17 92/66 100 Nasal Cannula 2.0 09/14/16 02:00 87 16 85/56 100 Nasal Cannula 2.0 09/14/16 01:36 100 Nasal Cannula 2.0 09/14/16 01:30 85 88/56 100 Nasal Cannula 2.0 09/14/16 01:00 86 81/49 100 Nasal Cannula 2.0 09/14/16 00:30 87 89/56 100 Nasal Cannula 2.0 09/14/16 00:00 89 09/14/16 00:00 98.2 88 19 86/52 99 Nasal Cannula 2.0 09/13/16 23:30 88 21 92/48 100 Nasal Cannula 2.0 09/13/16 23:00 90 19 105/50 100 Nasal Cannula 2.0 09/13/16 22:30 89 22 94/51 100 Nasal Cannula 2.0 09/13/16 22:00 91 21 86/52 100 Nasal Cannula 2.0 09/13/16 21:30 92 22 89/47 100 Nasal Cannula 2.0 09/13/16 21:00 93 21 89/56 100 Nasal Cannula 2.0 09/13/16 20:30 91 19 97/48 100 Nasal Cannula 2.0 09/13/16 20:00 97 09/13/16 20:00 98.2 96 20 95/61 100 Nasal Cannula 2.0 09/13/16 19:38 Nasal Cannula 2.0 28 09/13/16 19:37 100 Nasal Cannula 2.0 28 09/13/16 19:30 96 21 96/59 100 Nasal Cannula 2.0 09/13/16 19:24 99/54 09/13/16 19:00 100 21 99/54 100 Nasal Cannula 2.0 09/13/16 18:20 92/52 09/13/16 18:00 93 21 92/52 100 Nasal Cannula 2.0 09/13/16 17:30 74 18 98/62 100 Nasal Cannula 2.0 09/13/16 17:00 74 18 100/57 100 Nasal Cannula 2.0 09/13/16 16:30 98.6 92 20 102/65 98 Nasal Cannula 2.0 09/13/16 16:00 92 20 95/58 98 Nasal Cannula 2.0 09/13/16 16:00 92 09/13/16 15:30 100 16 90/56 100 Nasal Cannula 2.0 09/13/16 15:00 98.5 67 19 104/57 100 Nasal Cannula 2.0 09/13/16 14:30 93 25 90/61 100 Nasal Cannula 2.0 09/13/16 14:00 91 18 101/59 100 Nasal Cannula 2.0 09/13/16 13:30 92 17 101/59 100 Nasal Cannula 2.0 09/13/16 13:00 108 16 92/58 100 Nasal Cannula 2.0 09/13/16 12:30 95 16 92/51 100 Nasal Cannula 2.0 09/13/16 12:00 89 09/13/16 12:00 98.0 91 23 95/58 100 Nasal Cannula 2.0 09/13/16 11:30 91 13 97/63 100 Nasal Cannula 2.0 Status: awake Condition: critical HEENT: atraumatic Lungs: clear Heart: HR/BP stable, HR/BP unstable Abdomen: soft, non-tender, active bowel sounds Extremities: no C/C/E, edema Decubiti: location, stage Micro: Microbiology Date/Time Source Procedure Growth Status 09/12/16 20:00 Blood Blood Culture - Preliminary NO GROWTH AFTER 24 HOURS Resulted 09/12/16 19:50 Blood Blood Culture - Preliminary NO GROWTH AFTER 24 HOURS Resulted 09/11/16 18:20 Blood Blood Culture - Preliminary NO GROWTH AFTER 48 HOURS Resulted 09/11/16 18:12 Blood Blood Culture - Preliminary NO GROWTH AFTER 48 HOURS Resulted Accucheck: 65 Critical Care - Subjective ICU Day: 3 Condition: critical EKG Rhythm: Sinus Rhythm FI02: 28 Fluids: dobutamine I&O: Intake and Output 09/13/16 09/14/16 19:00 07:00 Intake Total 1603.420 ml 617.969 ml Output Total 50 ml 445 ml Balance 1553.420 ml 172.969 ml Intake Oral 1500 ml 450 ml IV Total 103.420 ml 167.969 ml Output Urine Total 50 ml 445 ml # Bowel Movements 3 3 CXR: no change Labs: Laboratory Tests Test 09/14/16 04:30 White Blood Count 3.8 K/UL (4.8-10.8) L Red Blood Count 3.90 M/UL (4.20-5.40) L Hemoglobin 10.4 G/DL (12.0-16.0) L Hematocrit 31.4 % (37.0-47.0) L Mean Corpuscular Volume 80 FL (80-99) Mean Corpuscular Hemoglobin 26.5 PG (27.0-31.0) L Mean Corpuscular Hemoglobin Concent 33.0 G/DL (32.0-36.0) Red Cell Distribution Width 16.8 % (11.6-14.8) H Platelet Count 325 K/UL (150-450) Mean Platelet Volume 8.5 FL (6.5-10.1) Neutrophils (%) (Auto) % (45.0-75.0) Lymphocytes (%) (Auto) % (20.0-45.0) Monocytes (%) (Auto) % (1.0-10.0) Eosinophils (%) (Auto) % (0.0-3.0) Basophils (%) (Auto) % (0.0-2.0) Sodium Level 136 mEQ/L (135-145) Potassium Level 3.5 mEQ/L (3.4-4.9) Chloride Level 95 mEQ/L (98-107) L Carbon Dioxide Level 31 mEQ/L (20-30) H Anion Gap 10 (5-15) Blood Urea Nitrogen 11 mg/dL (7-23) Creatinine 0.6 mg/dL (0.5-0.9) Estimat Glomerular Filtration Rate mL/min (>60) Glucose Level 57 mg/dL (74-106) L Lactic Acid Level 1.00 mmol/L (0.66-2.22) Uric Acid 5.8 mg/dL (3.0-7.5) Calcium Level 7.0 mg/dL (8.6-10.2) L Phosphorus Level 3.1 mg/dL (2.5-4.8) Magnesium Level 2.1 mg/dL (1.7-2.5) Total Bilirubin 0.6 mg/dL (0.0-1.2) Aspartate Amino Transf (AST/SGOT) 19 U/L (5-40) Alanine Aminotransferase (ALT/SGPT) 8 U/L (3-33) Alkaline Phosphatase 72 U/L (35-104) Troponin I < 0.30 ng/mL (<=0.30) C-Reactive Protein, Quantitative 0.9 mg/dL (< 0.5) H Pro-B-Type Natriuretic Peptide 62013 pg/mL (0-125) H Total Protein 4.9 g/dL (6.6-8.7) L Albumin 2.0 g/dL (3.5-5.2) L Globulin 2.9 g/dL Albumin/Globulin Ratio 0.6 (1.0-2.7) L ANGELA BERUMEN Sep 14, 2016 11:25
--- NOTE | 2016-09-14 11:41 | Diagnostic Imaging Report ---
Indications: DYSPNEA Technique: Portable AP chest Findings: Comparison: 09/11/2016 Left retrocardiac opacification and costophrenic angle blunting have increased. Cardiomegaly, bilateral interstitial infiltrates unchanged. PICC has been placed via right upper extremity, tip in region of superior vena cava. No other interval change. IMPRESSION: Apparent worsening of left lower lobe atelectasis versus pneumonia and/or left pleural effusion Background bilateral congestive changes otherwise unchanged Interval PICC placement, adequately positioned
--- NOTE | 2016-09-14 14:08 | General Progress Note ---
Assessment/Plan Status: stable - from renal stand Assessment/Plan status: Proteinuria, likely Diabetic Nephropathy HypoAlbuminemia: Increase Loss vs Decrease production- UTI Anemia Failure to thrive / Dehydration Pacer severe cardiomyopathy Ej Fx 20% Low Ca , corrects with Low Alb Plan; optimize cardiac status Anemia hauser- K supplement- as needed 24 H urine for protein- nominal monitor renal parameters gastric support- stop [facility] meds- 2D Echo : Low EjFx per orders Subjective ROS Limited/Unobtainable: No Constitutional: Reports: malaise, weakness Allergies: Coded Allergies: PENICILLIN (Verified Allergy, Unknown, Rash, 03/30/15) Objective Last 24 Hour Vital Signs Date Time Temp Pulse Resp B/P Pulse Ox O2 Delivery O2 Flow Rate FiO2 09/14/16 13:00 97 23 95/58 97 Nasal Cannula 2.0 09/14/16 12:00 97.9 115 23 96/57 98 Nasal Cannula 2.0 09/14/16 12:00 115 09/14/16 11:22 96/51 09/14/16 11:00 92 12 96/51 100 Nasal Cannula 2.0 09/14/16 10:00 93 18 92/53 99 Nasal Cannula 2.0 09/14/16 09:06 91 17 91/46 100 Nasal Cannula 2.0 09/14/16 09:00 88 17 89/57 100 Nasal Cannula 2.0 09/14/16 08:59 87 09/14/16 08:10 99 19 81/49 100 Nasal Cannula 2.0 09/14/16 08:05 82 19 87/53 100 Nasal Cannula 2.0 09/14/16 08:00 98.6 87 23 94/53 100 Nasal Cannula 2.0 09/14/16 08:00 87 09/14/16 07:00 84 19 87/53 100 Nasal Cannula 2.0 09/14/16 06:30 89 24 86/50 100 Nasal Cannula 2.0 09/14/16 06:00 86 16 96/61 100 Nasal Cannula 2.0 09/14/16 05:30 86 17 98/56 100 Nasal Cannula 2.0 09/14/16 05:00 86 20 93/56 100 Nasal Cannula 2.0 09/14/16 04:30 86 18 89/55 100 Nasal Cannula 2.0 09/14/16 04:00 98.1 86 17 93/59 100 Nasal Cannula 2.0 09/14/16 04:00 86 09/14/16 03:30 86 18 87/53 100 Nasal Cannula 2.0 09/14/16 03:00 85 101/74 100 Nasal Cannula 2.0 09/14/16 02:30 90 17 92/66 100 Nasal Cannula 2.0 09/14/16 02:00 87 16 85/56 100 Nasal Cannula 2.0 09/14/16 01:36 100 Nasal Cannula 2.0 09/14/16 01:30 85 88/56 100 Nasal Cannula 2.0 09/14/16 01:00 86 81/49 100 Nasal Cannula 2.0 09/14/16 00:30 87 89/56 100 Nasal Cannula 2.0 09/14/16 00:00 89 09/14/16 00:00 98.2 88 19 86/52 99 Nasal Cannula 2.0 09/13/16 23:30 88 21 92/48 100 Nasal Cannula 2.0 09/13/16 23:00 90 19 105/50 100 Nasal Cannula 2.0 09/13/16 22:30 89 22 94/51 100 Nasal Cannula 2.0 09/13/16 22:00 91 21 86/52 100 Nasal Cannula 2.0 09/13/16 21:30 92 22 89/47 100 Nasal Cannula 2.0 09/13/16 21:00 93 21 89/56 100 Nasal Cannula 2.0 09/13/16 20:30 91 19 97/48 100 Nasal Cannula 2.0 09/13/16 20:00 97 09/13/16 20:00 98.2 96 20 95/61 100 Nasal Cannula 2.0 09/13/16 19:38 Nasal Cannula 2.0 28 09/13/16 19:37 100 Nasal Cannula 2.0 28 09/13/16 19:30 96 21 96/59 100 Nasal Cannula 2.0 09/13/16 19:24 99/54 09/13/16 19:00 100 21 99/54 100 Nasal Cannula 2.0 09/13/16 18:20 92/52 09/13/16 18:00 93 21 92/52 100 Nasal Cannula 2.0 09/13/16 17:30 74 18 98/62 100 Nasal Cannula 2.0 09/13/16 17:00 74 18 100/57 100 Nasal Cannula 2.0 09/13/16 16:30 98.6 92 20 102/65 98 Nasal Cannula 2.0 09/13/16 16:00 92 20 95/58 98 Nasal Cannula 2.0 09/13/16 16:00 92 09/13/16 15:30 100 16 90/56 100 Nasal Cannula 2.0 09/13/16 15:00 98.5 67 19 104/57 100 Nasal Cannula 2.0 09/13/16 14:30 93 25 90/61 100 Nasal Cannula 2.0 Intake and Output 09/13/16 09/14/16 19:00 07:00 Intake Total 1603.420 ml 617.969 ml Output Total 50 ml 445 ml Balance 1553.420 ml 172.969 ml Intake Oral 1500 ml 450 ml IV Total 103.420 ml 167.969 ml Output Urine Total 50 ml 445 ml # Bowel Movements 3 3 Laboratory Tests 09/14/16 04:30: White Blood Count 3.8L, Red Blood Count 3.90L, Hemoglobin 10.4L, Hematocrit 31.4L, Mean Corpuscular Volume 80, Mean Corpuscular Hemoglobin 26.5L, Mean Corpuscular Hemoglobin Concent 33.0, Red Cell Distribution Width 16.8H, Platelet Count 325, Mean Platelet Volume 8.5, Neutrophils (%) (Auto) , Lymphocytes (%) (Auto) , Monocytes (%) (Auto) , Eosinophils (%) (Auto) , Basophils (%) (Auto) , Sodium Level 136, Potassium Level 3.5, Chloride Level 95L , Carbon Dioxide Level 31H, Anion Gap 10, Blood Urea Nitrogen 11, Creatinine 0.6 , Estimat Glomerular Filtration Rate , Glucose Level 57L, Lactic Acid Level 1.00 , Uric Acid 5.8, Calcium Level 7.0L, Phosphorus Level 3.1, Magnesium Level 2.1, Total Bilirubin 0.6, Aspartate Amino Transf (AST/SGOT) 19, Alanine Aminotransferase (ALT/SGPT) 8, Alkaline Phosphatase 72, Troponin I < 0.30, C- Reactive Protein, Quantitative 0.9H, Pro-B-Type Natriuretic Peptide 94621L, Total Protein 4.9L, Albumin 2.0L, Globulin 2.9, Albumin/Globulin Ratio 0.6L Height (Feet): 5 Height (Inches): 4.00 Weight (Pounds): 158 General Appearance: no apparent distress, lethargic Cardiovascular: tachycardia Respiratory/Chest: decreased breath sounds Abdomen: soft FAUZIA MAYA Sep 14, 2016 14:08
[2016-09-14] MEDS ORDERED: NS 550ML IV ONE (15:29)
--- NOTE | 2016-09-14 17:48 | Cardiology Progress Note ---
Assessment/Plan Assessment/Plan hypotension chronic systolic failure with acute component right heart fialure dcm ef 10-15% hs of sig mr s/p mitraclip sever TR peripheral edema due to tr recent cellulitis dm metabolic encephalopathy breast cancer hs recent dx fo thryoid cancer not treated surgically due to poor cardiac status ? bronchitis vs sinusitis av abn noted maybe reverberration artifact dobutamine was dcd but willl repalce as she hs lowe urin out put and is starting to swell agian will start on lasix 40 mg iv bid for her edema keep on monitor once stable will transfer to [facility] in a chair soon orthosttic vital not performed as she is unable to stand up d/w dr manzanares yest blood cx are neg at 24 hour off abx still 4 sets enzo keep monitoring will need labs in am is quite ill and at risk of dying need continue critical care monitoring may go to [facility] if stable on recurrent dobutamine drip cxr is worse Subjective Cardiovascular: Denies: lightheadedness, palpitations Respiratory: Denies: shortness of breath Gastrointestinal/Abdominal: Denies: abdominal pain Genitourinary: Reports: burning Subjective is uneasy cannot find a comfortable position continuously asked to be raised up in bed during my visit Objective Last 24 Hour Vital Signs Date Time Temp Pulse Resp B/P Pulse Ox O2 Delivery O2 Flow Rate FiO2 09/14/16 17:00 96 18 97/64 98 Nasal Cannula 2.0 09/14/16 16:32 97.4 09/14/16 16:00 97.4 113 23 95/74 97 Room Air 09/14/16 16:00 113 09/14/16 15:00 101 18 94/61 99 Nasal Cannula 2.0 09/14/16 14:00 98 15 103/63 99 Nasal Cannula 2.0 09/14/16 13:00 97 23 95/58 97 Nasal Cannula 2.0 09/14/16 12:00 97.9 115 23 96/57 98 Nasal Cannula 2.0 09/14/16 12:00 115 09/14/16 11:22 96/51 09/14/16 11:00 92 12 96/51 100 Nasal Cannula 2.0 09/14/16 10:00 93 18 92/53 99 Nasal Cannula 2.0 09/14/16 09:06 91 17 91/46 100 Nasal Cannula 2.0 09/14/16 09:00 88 17 89/57 100 Nasal Cannula 2.0 09/14/16 08:59 87 09/14/16 08:10 99 19 81/49 100 Nasal Cannula 2.0 09/14/16 08:05 82 19 87/53 100 Nasal Cannula 2.0 09/14/16 08:00 98.6 87 23 94/53 100 Nasal Cannula 2.0 09/14/16 08:00 87 09/14/16 07:58 99 Nasal Cannula 2.0 09/14/16 07:57 Nasal Cannula 2.0 09/14/16 07:00 84 19 87/53 100 Nasal Cannula 2.0 09/14/16 06:30 89 24 86/50 100 Nasal Cannula 2.0 09/14/16 06:00 86 16 96/61 100 Nasal Cannula 2.0 09/14/16 05:30 86 17 98/56 100 Nasal Cannula 2.0 09/14/16 05:00 86 20 93/56 100 Nasal Cannula 2.0 09/14/16 04:30 86 18 89/55 100 Nasal Cannula 2.0 09/14/16 04:00 98.1 86 17 93/59 100 Nasal Cannula 2.0 09/14/16 04:00 86 09/14/16 03:30 86 18 87/53 100 Nasal Cannula 2.0 09/14/16 03:00 85 101/74 100 Nasal Cannula 2.0 09/14/16 02:30 90 17 92/66 100 Nasal Cannula 2.0 09/14/16 02:00 87 16 85/56 100 Nasal Cannula 2.0 09/14/16 01:36 100 Nasal Cannula 2.0 09/14/16 01:30 85 88/56 100 Nasal Cannula 2.0 09/14/16 01:00 86 81/49 100 Nasal Cannula 2.0 09/14/16 00:30 87 89/56 100 Nasal Cannula 2.0 09/14/16 00:00 89 09/14/16 00:00 98.2 88 19 86/52 99 Nasal Cannula 2.0 09/13/16 23:30 88 21 92/48 100 Nasal Cannula 2.0 09/13/16 23:00 90 19 105/50 100 Nasal Cannula 2.0 09/13/16 22:30 89 22 94/51 100 Nasal Cannula 2.0 09/13/16 22:00 91 21 86/52 100 Nasal Cannula 2.0 09/13/16 21:30 92 22 89/47 100 Nasal Cannula 2.0 09/13/16 21:00 93 21 89/56 100 Nasal Cannula 2.0 09/13/16 20:30 91 19 97/48 100 Nasal Cannula 2.0 09/13/16 20:00 97 09/13/16 20:00 98.2 96 20 95/61 100 Nasal Cannula 2.0 09/13/16 19:38 Nasal Cannula 2.0 28 09/13/16 19:37 100 Nasal Cannula 2.0 28 09/13/16 19:30 96 21 96/59 100 Nasal Cannula 2.0 09/13/16 19:24 99/54 09/13/16 19:00 100 21 99/54 100 Nasal Cannula 2.0 09/13/16 18:20 92/52 09/13/16 18:00 93 21 92/52 100 Nasal Cannula 2.0 General Appearance: no apparent distress, alert Neck: supple, JVD Cardiovascular: normal rate, regular rhythm Respiratory/Chest: decreased breath sounds, crackles/rales - left base Abdomen: normal bowel sounds, non tender, soft Extremities: moderate edema Intake and Output 09/13/16 09/14/16 19:00 07:00 Intake Total 1603.420 ml 617.969 ml Output Total 50 ml 445 ml Balance 1553.420 ml 172.969 ml Intake Oral 1500 ml 450 ml IV Total 103.420 ml 167.969 ml Output Urine Total 50 ml 445 ml # Bowel Movements 3 3 Laboratory Tests Test 09/14/16 04:30 White Blood Count 3.8 K/UL (4.8-10.8) L Red Blood Count 3.90 M/UL (4.20-5.40) L Hemoglobin 10.4 G/DL (12.0-16.0) L Hematocrit 31.4 % (37.0-47.0) L Mean Corpuscular Volume 80 FL (80-99) Mean Corpuscular Hemoglobin 26.5 PG (27.0-31.0) L Mean Corpuscular Hemoglobin Concent 33.0 G/DL (32.0-36.0) Red Cell Distribution Width 16.8 % (11.6-14.8) H Platelet Count 325 K/UL (150-450) Mean Platelet Volume 8.5 FL (6.5-10.1) Neutrophils (%) (Auto) % (45.0-75.0) Lymphocytes (%) (Auto) % (20.0-45.0) Monocytes (%) (Auto) % (1.0-10.0) Eosinophils (%) (Auto) % (0.0-3.0) Basophils (%) (Auto) % (0.0-2.0) Sodium Level 136 mEQ/L (135-145) Potassium Level 3.5 mEQ/L (3.4-4.9) Chloride Level 95 mEQ/L (98-107) L Carbon Dioxide Level 31 mEQ/L (20-30) H Anion Gap 10 (5-15) Blood Urea Nitrogen 11 mg/dL (7-23) Creatinine 0.6 mg/dL (0.5-0.9) Estimat Glomerular Filtration Rate mL/min (>60) Glucose Level 57 mg/dL (74-106) L Lactic Acid Level 1.00 mmol/L (0.66-2.22) Uric Acid 5.8 mg/dL (3.0-7.5) Calcium Level 7.0 mg/dL (8.6-10.2) L Phosphorus Level 3.1 mg/dL (2.5-4.8) Magnesium Level 2.1 mg/dL (1.7-2.5) Total Bilirubin 0.6 mg/dL (0.0-1.2) Aspartate Amino Transf (AST/SGOT) 19 U/L (5-40) Alanine Aminotransferase (ALT/SGPT) 8 U/L (3-33) Alkaline Phosphatase 72 U/L (35-104) Troponin I < 0.30 ng/mL (<=0.30) C-Reactive Protein, Quantitative 0.9 mg/dL (< 0.5) H Pro-B-Type Natriuretic Peptide 82832 pg/mL (0-125) H Total Protein 4.9 g/dL (6.6-8.7) L Albumin 2.0 g/dL (3.5-5.2) L Globulin 2.9 g/dL Albumin/Globulin Ratio 0.6 (1.0-2.7) L Microbiology Date/Time Source Procedure Growth Status 09/12/16 20:00 Blood Blood Culture - Preliminary NO GROWTH AFTER 24 HOURS Resulted 09/12/16 19:50 Blood Blood Culture - Preliminary NO GROWTH AFTER 24 HOURS Resulted 09/11/16 18:20 Blood Blood Culture - Preliminary NO GROWTH AFTER 48 HOURS Resulted 09/11/16 18:12 Blood Blood Culture - Preliminary NO GROWTH AFTER 48 HOURS Resulted MARSHALL ROJO Sep 14, 2016 17:48
--- NOTE | 2016-09-14 17:54 | Cardiology Progress Note ---
Assessment/Plan Assessment/Plan hypotension chronic systolic failure with acute component right heart fialure dcm ef 10-15% hs of sig mr s/p mitraclip sever TR peripheral edema due to tr recent cellulitis dm metabolic encephalopathy breast cancer hs recent dx fo thryoid cancer not treated surgically due to poor cardiac status ? bronchitis vs sinusitis av abn noted maybe reverberration artifact dobutamine was dcd but willl repalce as she hs lowe urin out put and is starting to swell agtatiana will start on lasix 40 mg iv bid for her edema keep on monitor once stable will transfer to [facility] in a chair soon orthosttic vital not performed as she is unable to stand up d/w dr manzanares yest blood cx are neg at 24 hour off abx still 4 sets enzo keep monitoring will need labs in am is quite ill and at risk of dying need continue critical care monitoring may go to [facility] if stable on recurrent dobutamine drip cxr is worse Subjective Subjective is uneasy cannot find a comfortable position continuously asked to be raised up in bed during my visit Objective Last 24 Hour Vital Signs Date Time Temp Pulse Resp B/P Pulse Ox O2 Delivery O2 Flow Rate FiO2 09/14/16 17:00 96 18 97/64 98 Nasal Cannula 2.0 09/14/16 16:32 97.4 09/14/16 16:00 97.4 113 23 95/74 97 Room Air 09/14/16 16:00 113 09/14/16 15:00 101 18 94/61 99 Nasal Cannula 2.0 09/14/16 14:00 98 15 103/63 99 Nasal Cannula 2.0 09/14/16 13:00 97 23 95/58 97 Nasal Cannula 2.0 09/14/16 12:00 97.9 115 23 96/57 98 Nasal Cannula 2.0 09/14/16 12:00 115 09/14/16 11:22 96/51 09/14/16 11:00 92 12 96/51 100 Nasal Cannula 2.0 09/14/16 10:00 93 18 92/53 99 Nasal Cannula 2.0 09/14/16 09:06 91 17 91/46 100 Nasal Cannula 2.0 09/14/16 09:00 88 17 89/57 100 Nasal Cannula 2.0 09/14/16 08:59 87 09/14/16 08:10 99 19 81/49 100 Nasal Cannula 2.0 09/14/16 08:05 82 19 87/53 100 Nasal Cannula 2.0 09/14/16 08:00 98.6 87 23 94/53 100 Nasal Cannula 2.0 09/14/16 08:00 87 09/14/16 07:58 99 Nasal Cannula 2.0 09/14/16 07:57 Nasal Cannula 2.0 09/14/16 07:00 84 19 87/53 100 Nasal Cannula 2.0 09/14/16 06:30 89 24 86/50 100 Nasal Cannula 2.0 09/14/16 06:00 86 16 96/61 100 Nasal Cannula 2.0 09/14/16 05:30 86 17 98/56 100 Nasal Cannula 2.0 09/14/16 05:00 86 20 93/56 100 Nasal Cannula 2.0 09/14/16 04:30 86 18 89/55 100 Nasal Cannula 2.0 09/14/16 04:00 98.1 86 17 93/59 100 Nasal Cannula 2.0 09/14/16 04:00 86 09/14/16 03:30 86 18 87/53 100 Nasal Cannula 2.0 09/14/16 03:00 85 101/74 100 Nasal Cannula 2.0 09/14/16 02:30 90 17 92/66 100 Nasal Cannula 2.0 09/14/16 02:00 87 16 85/56 100 Nasal Cannula 2.0 09/14/16 01:36 100 Nasal Cannula 2.0 09/14/16 01:30 85 88/56 100 Nasal Cannula 2.0 09/14/16 01:00 86 81/49 100 Nasal Cannula 2.0 09/14/16 00:30 87 89/56 100 Nasal Cannula 2.0 09/14/16 00:00 89 09/14/16 00:00 98.2 88 19 86/52 99 Nasal Cannula 2.0 09/13/16 23:30 88 21 92/48 100 Nasal Cannula 2.0 09/13/16 23:00 90 19 105/50 100 Nasal Cannula 2.0 09/13/16 22:30 89 22 94/51 100 Nasal Cannula 2.0 09/13/16 22:00 91 21 86/52 100 Nasal Cannula 2.0 09/13/16 21:30 92 22 89/47 100 Nasal Cannula 2.0 09/13/16 21:00 93 21 89/56 100 Nasal Cannula 2.0 09/13/16 20:30 91 19 97/48 100 Nasal Cannula 2.0 09/13/16 20:00 97 09/13/16 20:00 98.2 96 20 95/61 100 Nasal Cannula 2.0 09/13/16 19:38 Nasal Cannula 2.0 28 09/13/16 19:37 100 Nasal Cannula 2.0 28 09/13/16 19:30 96 21 96/59 100 Nasal Cannula 2.0 09/13/16 19:24 99/54 09/13/16 19:00 100 21 99/54 100 Nasal Cannula 2.0 09/13/16 18:20 92/52 09/13/16 18:00 93 21 92/52 100 Nasal Cannula 2.0 Intake and Output 09/13/16 09/14/16 19:00 07:00 Intake Total 1603.420 ml 617.969 ml Output Total 50 ml 445 ml Balance 1553.420 ml 172.969 ml Intake Oral 1500 ml 450 ml IV Total 103.420 ml 167.969 ml Output Urine Total 50 ml 445 ml # Bowel Movements 3 3 Laboratory Tests Test 09/14/16 04:30 White Blood Count 3.8 K/UL (4.8-10.8) L Red Blood Count 3.90 M/UL (4.20-5.40) L Hemoglobin 10.4 G/DL (12.0-16.0) L Hematocrit 31.4 % (37.0-47.0) L Mean Corpuscular Volume 80 FL (80-99) Mean Corpuscular Hemoglobin 26.5 PG (27.0-31.0) L Mean Corpuscular Hemoglobin Concent 33.0 G/DL (32.0-36.0) Red Cell Distribution Width 16.8 % (11.6-14.8) H Platelet Count 325 K/UL (150-450) Mean Platelet Volume 8.5 FL (6.5-10.1) Neutrophils (%) (Auto) % (45.0-75.0) Lymphocytes (%) (Auto) % (20.0-45.0) Monocytes (%) (Auto) % (1.0-10.0) Eosinophils (%) (Auto) % (0.0-3.0) Basophils (%) (Auto) % (0.0-2.0) Sodium Level 136 mEQ/L (135-145) Potassium Level 3.5 mEQ/L (3.4-4.9) Chloride Level 95 mEQ/L (98-107) L Carbon Dioxide Level 31 mEQ/L (20-30) H Anion Gap 10 (5-15) Blood Urea Nitrogen 11 mg/dL (7-23) Creatinine 0.6 mg/dL (0.5-0.9) Estimat Glomerular Filtration Rate mL/min (>60) Glucose Level 57 mg/dL (74-106) L Lactic Acid Level 1.00 mmol/L (0.66-2.22) Uric Acid 5.8 mg/dL (3.0-7.5) Calcium Level 7.0 mg/dL (8.6-10.2) L Phosphorus Level 3.1 mg/dL (2.5-4.8) Magnesium Level 2.1 mg/dL (1.7-2.5) Total Bilirubin 0.6 mg/dL (0.0-1.2) Aspartate Amino Transf (AST/SGOT) 19 U/L (5-40) Alanine Aminotransferase (ALT/SGPT) 8 U/L (3-33) Alkaline Phosphatase 72 U/L (35-104) Troponin I < 0.30 ng/mL (<=0.30) C-Reactive Protein, Quantitative 0.9 mg/dL (< 0.5) H Pro-B-Type Natriuretic Peptide 01430 pg/mL (0-125) H Total Protein 4.9 g/dL (6.6-8.7) L Albumin 2.0 g/dL (3.5-5.2) L Globulin 2.9 g/dL Albumin/Globulin Ratio 0.6 (1.0-2.7) L Microbiology Date/Time Source Procedure Growth Status 09/12/16 20:00 Blood Blood Culture - Preliminary NO GROWTH AFTER 24 HOURS Resulted 09/12/16 19:50 Blood Blood Culture - Preliminary NO GROWTH AFTER 24 HOURS Resulted 09/11/16 18:20 Blood Blood Culture - Preliminary NO GROWTH AFTER 48 HOURS Resulted 09/11/16 18:12 Blood Blood Culture - Preliminary NO GROWTH AFTER 48 HOURS Resulted MARSHALL ROJO Sep 14, 2016 17:54
[2016-09-14] MEDS ORDERED: DOBUTamine 250mg/250ml Premix 250 ML IV SCH ×3 (18:00→20:00)
[2016-09-14] MEDS ORDERED: Metolazone 5mg tab ORAL ONE (18:00)
[2016-09-14] MEDS ORDERED: Furosemide 40mg tab ORAL ONE (18:15)
[2016-09-14] MEDS ORDERED: Zolpidem 5mg tab ORAL PRN (21:00)
--- NOTE | 2016-09-14 21:30 | Progress Note ---
DATE: 09/14/2016 SUBJECTIVE: The patient is stable at baseline. No behavior issues. Anxiety, agitation, still illogical. The patient would like to go back home. The patient still needs 24 hours care. MENTAL STATUS EXAMINATION: Alert and oriented times self and place. Mood is neutral. Affect is constricted, congruent with mood. Thought process is concrete. Thought content, there is no suicidal or homicidal ideation. ASSESSMENT: Cognitive impairment. The patient lacks capacity to make decisions. Next of kin should make decisions. PLAN: 1. The patient to be transferred to SNF or house with 24/ caregiver. 2. We will continue to follow and readjust the medication. Nba Davis M.D. DR: ROSA JOB#: [id number] CC:
[2016-09-15 04:00] VITALS: BP 93/66
[2016-09-15] MEDS: Dyna-Hex 2% Top Sol 8oz TOPIC SCH (04:05)
[2016-09-15 05:20] LABS: MEAN CORPUSCULAR HEMOGLOBIN 26.1 PG (27.0-31.0); MEAN CORPUSCULAR HGB CONC 32.4 G/DL (32.0-36.0); MEAN CORPUSCULAR VOLUME 81 FL (80-99); MEAN PLATELET VOLUME 7.3 FL (6.5-10.1); PLATELET COUNT 307 K/UL (150-450); RED BLOOD COUNT 3.85 M/UL (4.20-5.40); RED CELL DISTRIBUTION WIDTH 16.5 % (11.6-14.8); WHITE BLOOD COUNT 3.8 K/UL (4.8-10.8)
[2016-09-15 05:48] LABS: ALANINE AMINOTRANSFERASE 10 U/L (3-33); ALBUMIN/GLOBULIN RATIO 0.6 (1.0-2.7); ANION GAP 12 (5-15); ASPARTATE AMINO TRANSFERASE 20 U/L (5-40); CALCIUM 7.6 mg/dL (8.6-10.2); CARBON DIOXIDE 29 mEQ/L (20-30); CHLORIDE 94 mEQ/L (98-107); CREATININE 0.6 mg/dL (0.5-0.9); HEMOLYSIS 4; MAGNESIUM 1.9 mg/dL (1.7-2.5); PHOSPHORUS 2.8 mg/dL (2.5-4.8); POTASSIUM 3.6 mEQ/L (3.4-4.9); SODIUM 135 mEQ/L (135-145); TOTAL PROTEIN 5.1 g/dL (6.6-8.7)
[2016-09-15] MEDS: NovoLOG Insulin Flexpen SUBQ SCH ×4 (06:25→21:39)
[2016-09-15 08:29] VITALS: BP 102/56
[2016-09-15] MEDS: Heparin 5000 units/ml inj SUBQ SCH ×2 (08:39→21:38)
[2016-09-15] MEDS: Digoxin 0.125mg tab ORAL SCH (08:40)
[2016-09-15] MEDS ORDERED: Dyna-Hex 2% Top Sol 8oz TOPIC SCH (09:00)
--- NOTE | 2016-09-15 09:26 | Pulmonology Progress Note ---
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 check electrolytes family meeting to talk about code status and plan of care considering EF > 20, anasarca, positiove tumor markers and uterine and ovarian mass. Subjective Interval Events: awake, no new complains Allergies: Coded Allergies: PENICILLIN (Verified Allergy, Unknown, Rash, 03/30/15) Objective Last 24 Hour Vital Signs Date Time Temp Pulse Resp B/P Pulse Ox O2 Delivery O2 Flow Rate FiO2 09/15/16 08:40 92 09/15/16 08:29 96.9 92 20 102/56 99 Nasal Cannula 3.0 09/15/16 04:00 98.7 87 18 93/66 96 Room Air 09/15/16 04:00 85 09/15/16 00:00 86 09/14/16 23:53 97.5 90 20 92/58 95 Room Air 09/14/16 20:39 88/47 09/14/16 20:00 103 09/14/16 19:45 97.7 95 20 95/58 100 Nasal Cannula 2.0 09/14/16 19:40 Nasal Cannula 2.0 09/14/16 19:40 99 Nasal Cannula 2.0 09/14/16 18:41 96/49 09/14/16 18:00 97 22 96/49 100 Nasal Cannula 2.0 09/14/16 17:00 96 18 97/64 98 Nasal Cannula 2.0 09/14/16 16:32 97.4 09/14/16 16:00 97.4 113 23 95/74 97 Room Air 09/14/16 16:00 113 09/14/16 15:00 101 18 94/61 99 Nasal Cannula 2.0 09/14/16 14:00 98 15 103/63 99 Nasal Cannula 2.0 09/14/16 13:00 97 23 95/58 97 Nasal Cannula 2.0 09/14/16 12:00 97.9 115 23 96/57 98 Nasal Cannula 2.0 09/14/16 12:00 115 09/14/16 11:22 96/51 09/14/16 11:00 92 12 /51 100 Nasal Cannula 2.0 09/14/16 10:00 93 18 92/53 99 Nasal Cannula 2.0 Intake and Output 09/14/16 09/15/16 19:00 07:00 Intake Total 401.353 ml 107.50 ml Output Total 135 ml 1600 ml Balance 266.353 ml -1492.50 ml Intake Oral 300 ml IV Total 101.353 ml 107.50 ml Output Urine Total 135 ml 1600 ml # Bowel Movements 5 2 General Appearance: cachetic HEENT: normocephalic, atraumatic Respiratory/Chest: chest wall non-tender, lungs clear Breasts: no masses Cardiovascular: normal peripheral pulses, normal rate Abdomen: soft, non tender, no organomegaly Extremities: no cyanosis, no clubbing Skin: no lesions Microbiology Date/Time Source Procedure Growth Status 09/12/16 20:00 Blood Blood Culture - Preliminary NO GROWTH AFTER 48 HOURS Resulted 09/12/16 19:50 Blood Blood Culture - Preliminary NO GROWTH AFTER 48 HOURS Resulted Laboratory Tests 09/15/16 03:20: White Blood Count 3.8L, Red Blood Count 3.85L, Hemoglobin 10.0L, Hematocrit 31.0L, Mean Corpuscular Volume 81, Mean Corpuscular Hemoglobin 26.1L, Mean Corpuscular Hemoglobin Concent 32.4, Red Cell Distribution Width 16.5H, Platelet Count 307, Mean Platelet Volume 7.3, Neutrophils (%) (Auto) , Lymphocytes (%) (Auto) , Monocytes (%) (Auto) , Eosinophils (%) (Auto) , Basophils (%) (Auto) , Sodium Level 135, Potassium Level 3.6, Chloride Level 94L , Carbon Dioxide Level 29, Anion Gap 12, Blood Urea Nitrogen 12, Creatinine 0.6 , Estimat Glomerular Filtration Rate , Glucose Level 73L, Calcium Level 7.6L, Phosphorus Level 2.8, Magnesium Level 1.9, Total Bilirubin 0.6, Aspartate Amino Transf (AST/SGOT) 20, Alanine Aminotransferase (ALT/SGPT) 10, Alkaline Phosphatase 74, Total Protein 5.1L, Albumin 2.0L, Globulin 3.1, Albumin/ Globulin Ratio 0.6L Current Medications Medications (Trade) Dose Ordered Sig/Michael Route PRN Reason Start Time Stop Time Status Last Admin Dose Admin Acetaminophen (Tylenol) 650 mg Q4H PRN ORAL fever 09/14/16 22:30 10/14/16 22:29 Chlorhexidine Gluconate (Jessy-Hex 2%) 1 applic DAILY TOPIC 09/15/16 04:00 10/15/16 03:59 09/15/16 04:05 Dextrose (Dextrose 50%) STAT PRN IV Hypoglycemia 09/15/16 14:30 10/15/16 14:29 Digoxin (Lanoxin) 0.125 mg DAILY ORAL 09/15/16 09:00 10/15/16 08:59 09/15/16 08:40 Dobutamine HCl (Dobutrex) 250 ml @ 10.75 mls/ hr Q24H IV 09/14/16 20:00 10/14/16 19:59 09/14/16 20:39 Furosemide (Lasix) 40 mg EVERY 12 HOURS IV 09/14/16 21:00 10/14/16 20:59 09/15/16 08:38 Heparin Sodium (Porcine) (Heparin 5000 units/ml) 5,000 units EVERY 12 HOURS SUBQ 09/14/16 21:00 10/14/16 20:59 09/15/16 08:39 Insulin Aspart (NovoLOG) BEFORE MEALS AND HS SUBQ 09/14/16 21:00 10/14/16 20:59 09/14/16 20:59 Lorazepam (Ativan 2mg/ml 1ml) 0.5 mg Q4H PRN IV For Anxiety 09/14/16 22:30 09/21/16 22:29 Morphine Sulfate (Morphine Sulfate) 1 mg Q4H PRN IVP For Pain 09/14/16 22:45 09/21/16 22:44 Ondansetron HCl (Zofran) 4 mg Q6H PRN IVP Nausea & Vomiting 09/14/16 20:30 10/14/16 20:29 Pantoprazole (Protonix) 40 mg BID ORAL 09/15/16 09:00 10/15/16 08:59 09/15/16 08:38 Polyethylene Glycol (Miralax) 17 gm HSPRN PRN ORAL Constipation 6/15/17 21:00 10/14/16 20:59 Zolpidem Tartrate (Ambien) 5 mg HSPRN PRN ORAL Insomnia 09/14/16 21:00 10/14/16 20:59 ANGELA BERUMEN Sep 15, 2016 09:26
--- NOTE | 2016-09-15 10:27 | General Progress Note ---
Assessment/Plan Status: stable - from renal stand Assessment/Plan status: Proteinuria, likely Diabetic Nephropathy HypoAlbuminemia: Increase Loss vs Decrease production- UTI Anemia Failure to thrive / Dehydration Pacer severe cardiomyopathy Ej Fx 20% Low Ca , corrects with Low Alb Plan; optimize cardiac status Anemia hauser- K supplement- as needed 24 H urine for protein- nominal monitor renal parameters gastric support- stop [facility] [place] [facility]- 2D Echo : Low EjFx per orders Subjective ROS Limited/Unobtainable: No Constitutional: Reports: malaise Allergies: Coded Allergies: PENICILLIN (Verified Allergy, Unknown, Rash, 03/30/15) Objective Last 24 Hour Vital Signs Date Time Temp Pulse Resp B/P Pulse Ox O2 Delivery O2 Flow Rate FiO2 09/15/16 08:40 92 09/15/16 08:29 96.9 92 20 102/56 99 Nasal Cannula 3.0 09/15/16 08:00 99 09/15/16 04:00 98.7 87 18 93/66 96 Room Air 09/15/16 04:00 85 09/15/16 00:00 86 09/14/16 23:53 97.5 90 20 92/58 95 Room Air 09/14/16 20:39 88/47 09/14/16 20:00 103 09/14/16 19:45 97.7 95 20 95/58 100 Nasal Cannula 2.0 09/14/16 19:40 Nasal Cannula 2.0 09/14/16 19:40 99 Nasal Cannula 2.0 09/14/16 18:41 96/49 09/14/16 18:00 97 22 96/49 100 Nasal Cannula 2.0 09/14/16 17:00 96 18 97/64 98 Nasal Cannula 2.0 09/14/16 16:32 97.4 09/14/16 16:00 97.4 113 23 95/74 97 Room Air 09/14/16 16:00 113 09/14/16 15:00 101 18 94/61 99 Nasal Cannula 2.0 09/14/16 14:00 98 15 103/63 99 Nasal Cannula 2.0 09/14/16 13:00 97 23 95/58 97 Nasal Cannula 2.0 09/14/16 12:00 97.9 115 23 96/57 98 Nasal Cannula 2.0 09/14/16 12:00 115 09/14/16 11:22 96/51 6/15/17 11:00 92 12 100 Nasal Cannula 2.0 Intake and Output 09/14/16 09/15/16 19:00 07:00 Intake Total 401.353 ml 107.50 ml Output Total 135 ml 1600 ml Balance 266.353 ml -1492.50 ml Intake Oral 300 ml IV Total 101.353 ml 107.50 ml Output Urine Total 135 ml 1600 ml # Bowel Movements 5 2 Laboratory Tests 09/15/16 03:20: White Blood Count 3.8L, Red Blood Count 3.85L, Hemoglobin 10.0L, Hematocrit 31.0L, Mean Corpuscular Volume 81, Mean Corpuscular Hemoglobin 26.1L, Mean Corpuscular Hemoglobin Concent 32.4, Red Cell Distribution Width 16.5H, Platelet Count 307, Mean Platelet Volume 7.3, Neutrophils (%) (Auto) , Lymphocytes (%) (Auto) , Monocytes (%) (Auto) , Eosinophils (%) (Auto) , Basophils (%) (Auto) , Sodium Level 135, Potassium Level 3.6, Chloride Level 94L , Carbon Dioxide Level 29, Anion Gap 12, Blood Urea Nitrogen 12, Creatinine 0.6 , Estimat Glomerular Filtration Rate , Glucose Level 73L, Calcium Level 7.6L, Phosphorus Level 2.8, Magnesium Level 1.9, Total Bilirubin 0.6, Aspartate Amino Transf (AST/SGOT) 20, Alanine Aminotransferase (ALT/SGPT) 10, Alkaline Phosphatase 74, Total Protein 5.1L, Albumin 2.0L, Globulin 3.1, Albumin/ Globulin Ratio 0.6L Height (Feet): 5 Height (Inches): 4.00 Weight (Pounds): 157 General Appearance: no apparent distress Objective no change in PE FAUZIA MAYA Sep 15, 2016 10:27
--- NOTE | 2016-09-15 11:00 | Diagnostic Imaging Report ---
Indications: Dyspnea, chest pain Technique: Portable AP chest Findings: Comparison: 09/14/16 Bilateral parahilar interstitial infiltrates, small right basal pleural effusion have increased. Cardiomegaly, pulmonary vascular redistribution, left retrocardiac opacification, left costophrenic angle indistinctness suggesting pleural effusion persist, unchanged. No new abnormality identified. IMPRESSION: Increase in bilateral congestive changes Underlying atelectasis or pneumonia left lower lobe not excludable, unchanged
[2016-09-15 12:00] VITALS: BP 96/55
[2016-09-15 15:44] LABS: A/G RATIO 0.7 (0.7-1.7); ABNORMAL PROTEIN BAND 1 0.2 g/dL (Not Observed); ALPHA TOCOPHEROL 11.2 mg/L (6.5-21.5); ALPHA-1 GLOBULIN 0.2 g/dL (0.0-0.4); ALPHA-2 GLOBULIN 0.5 g/dL (0.4-1.0); BETA GLOBULIN 0.8 g/dL (0.7-1.3); CA 125 61.7 U/mL (0.0-38.1); CA 27.29 10.3 U/mL (0.0-38.6); CA15-3 14.7 U/mL (0.0-25.0); GAMMA GLOBULIN 1.3 g/dL (0.4-1.8); GLOBULIN, TOTAL 2.9 g/dL (2.2-3.9); TOTAL PROTEIN 4.9 g/dL (6.0-8.5); VITAMIN D 25-OH TOTAL 29 ng/mL (.)
[2016-09-15 16:41] VITALS: BP 97/55
[2016-09-15] MEDS: DOBUTAMINE IV SCH (16:47)
[2016-09-15] MEDS: NS IV SCH (16:47)
[2016-09-15 17:33] LABS: ABG ALLEN TEST POSITIVE
--- NOTE | 2016-09-15 18:30 | Cardiology Progress Note ---
Assessment/Plan Assessment/Plan hypotension chronic systolic failure with acute component right heart fialure dcm ef 10-15% hs of sig mr s/p mitraclip sever TR peripheral edema due to tr recent cellulitis dm metabolic encephalopathy breast cancer hs recent dx fo thryoid cancer not treated surgically due to poor cardiac status ? bronchitis vs sinusitis av abn noted maybe reverberration artifact dobutamin drip for few day s now on jacob had decub is uncomfortable with the [place] d/w rn oob in a chair soon blood cx are neg at 48 hour off abx still 4 sets LIEKLY ABN ON ECHO IS REVERB ARTIFACT enzo keep monitoring will need labs daily conteiu bid lasix adn dobutamin unless co2 or cr or bp drop for a few days then dc to snf I WILL BE AWAY 09/15 -09/28 COVERIGN MD WILL SEE Subjective Cardiovascular: Denies: chest pain, irregular heart rate, lightheadedness Respiratory: Denies: shortness of breath Gastrointestinal/Abdominal: Denies: abdominal pain Genitourinary: Reports: other - [place] pain Objective Last 24 Hour Vital Signs Date Time Temp Pulse Resp B/P Pulse Ox O2 Delivery O2 Flow Rate FiO2 09/15/16 16:41 97.5 93 20 97/55 99 Nasal Cannula 2.0 09/15/16 16:00 97 09/15/16 12:00 92 09/15/16 12:00 97.3 93 20 96/55 98 Nasal Cannula 3.0 09/15/16 09:00 Nasal Cannula 2.0 28 09/15/16 09:00 99 Nasal Cannula 2.0 28 09/15/16 08:40 92 09/15/16 08:29 96.9 92 20 102/56 99 Nasal Cannula 3.0 09/15/16 08:00 99 09/15/16 04:00 98.7 87 18 93/66 96 Room Air 09/15/16 04:00 85 09/15/16 00:00 86 09/14/16 23:53 97.5 90 20 92/58 95 Room Air 09/14/16 20:39 88/47 09/14/16 20:00 103 09/14/16 19:45 97.7 95 20 95/58 100 Nasal Cannula 2.0 09/14/16 19:40 Nasal Cannula 2.0 09/14/16 19:40 99 Nasal Cannula 2.0 09/14/16 18:41 96/49 General Appearance: alert Neck: JVD Cardiovascular: normal rate, tachycardia Respiratory/Chest: lungs clear, normal breath sounds Abdomen: normal bowel sounds, non tender, soft Extremities: severe edema Intake and Output 09/14/16 09/15/16 19:00 07:00 Intake Total 401.353 ml 107.50 ml Output Total 135 ml 1600 ml Balance 266.353 ml -1492.50 ml Intake Oral 300 ml IV Total 101.353 ml 107.50 ml Output Urine Total 135 ml 1600 ml # Bowel Movements 5 2 Laboratory Tests Test 09/15/16 03:20 09/15/16 17:25 White Blood Count 3.8 K/UL (4.8-10.8) L Red Blood Count 3.85 M/UL (4.20-5.40) L Hemoglobin 10.0 G/DL (12.0-16.0) L Hematocrit 31.0 % (37.0-47.0) L Mean Corpuscular Volume 81 FL (80-99) Mean Corpuscular Hemoglobin 26.1 PG (27.0-31.0) L Mean Corpuscular Hemoglobin Concent 32.4 G/DL (32.0-36.0) Red Cell Distribution Width 16.5 % (11.6-14.8) H Platelet Count 307 K/UL (150-450) Mean Platelet Volume 7.3 FL (6.5-10.1) Neutrophils (%) (Auto) % (45.0-75.0) Lymphocytes (%) (Auto) % (20.0-45.0) Monocytes (%) (Auto) % (1.0-10.0) Eosinophils (%) (Auto) % (0.0-3.0) Basophils (%) (Auto) % (0.0-2.0) Sodium Level 135 mEQ/L (135-145) Potassium Level 3.6 mEQ/L (3.4-4.9) Chloride Level 94 mEQ/L (98-107) L Carbon Dioxide Level 29 mEQ/L (20-30) Anion Gap 12 (5-15) Blood Urea Nitrogen 12 mg/dL (7-23) Creatinine 0.6 mg/dL (0.5-0.9) Estimat Glomerular Filtration Rate mL/min (>60) Glucose Level 73 mg/dL (74-106) L Calcium Level 7.6 mg/dL (8.6-10.2) L Phosphorus Level 2.8 mg/dL (2.5-4.8) Magnesium Level 1.9 mg/dL (1.7-2.5) Total Bilirubin 0.6 mg/dL (0.0-1.2) Aspartate Amino Transf (AST/SGOT) 20 U/L (5-40) Alanine Aminotransferase (ALT/SGPT) 10 U/L (3-33) Alkaline Phosphatase 74 U/L (35-104) Total Protein 5.1 g/dL (6.6-8.7) L Albumin 2.0 g/dL (3.5-5.2) L Globulin 3.1 g/dL Albumin/Globulin Ratio 0.6 (1.0-2.7) L Arterial Blood pH 7.511 (7.350-7.450) Arterial Blood Partial Pressure CO2 42.0 mmHg (35.0-45.0) Arterial Blood Partial Pressure O2 64.0 mmHg (75.0-100.0) L Arterial Blood HCO3 32.8 mmol/L (22.0-26.0) H Arterial Blood Oxygen Saturation 66.5 % (92.0-98.0) L Arterial Blood Base Excess 9.0 Camron Test Positive Microbiology Date/Time Source Procedure Growth Status 09/12/16 20:00 Blood Blood Culture - Preliminary NO GROWTH AFTER 48 HOURS Resulted 09/12/16 19:50 Blood Blood Culture - Preliminary NO GROWTH AFTER 48 HOURS Resulted MARSHALL ROJO Sep 15, 2016 18:30
[2016-09-15 20:16] VITALS: BP 102/57
[2016-09-15] MEDS: Morphine Sulfate 2mg/ml Inj IVP PRN (23:46)
[2016-09-16] VITALS: BP 92/57
[2016-09-16 04:00] VITALS: BP 109/60
[2016-09-16] MEDS: NovoLOG Insulin Flexpen SUBQ SCH ×4 (06:11→21:00)
[2016-09-16 08:00] VITALS: BP 101/47
[2016-09-16] MEDS: Heparin 5000 units/ml inj SUBQ SCH ×2 (08:23→21:16)
[2016-09-16] MEDS: Digoxin 0.125mg tab ORAL SCH (08:23)
[2016-09-16] MEDS: Dyna-Hex 2% Top Sol 8oz TOPIC SCH (08:24)
[2016-09-16 12:00] VITALS: BP 106/51
[2016-09-16] MEDS: Morphine Sulfate 2mg/ml Inj IVP PRN ×2 (15:34→19:45)
[2016-09-16 16:00] VITALS: BP 106/65
--- NOTE | 2016-09-16 16:22 | General Progress Note ---
Assessment/Plan Status: stable Assessment/Plan status: Proteinuria, likely Diabetic Nephropathy HypoAlbuminemia: Increase Loss vs Decrease production- UTI Anemia Failure to thrive / Dehydration Pacer severe cardiomyopathy Ej Fx 20% Low Ca , corrects with Low Alb Plan; optimize cardiac status Anemia hauser- K supplement- as needed 24 H urine for protein- nominal monitor renal parameters gastric support- stop [facility]- 2D Echo : Low EjFx per orders Subjective ROS Limited/Unobtainable: No Constitutional: Reports: malaise, weakness Allergies: Coded Allergies: PENICILLIN (Verified Allergy, Unknown, Rash, 03/30/15) Objective Last 24 Hour Vital Signs Date Time Temp Pulse Resp B/P Pulse Ox O2 Delivery O2 Flow Rate FiO2 09/16/16 12:00 97.7 90 18 106/51 100 Nasal Cannula 2.0 09/16/16 12:00 104 09/16/16 08:23 87 09/16/16 08:00 97.7 85 18 101/47 99 Nasal Cannula 2.0 09/16/16 08:00 80 09/16/16 04:00 85 09/16/16 04:00 97.3 90 20 109/60 100 Nasal Cannula 2.0 09/16/16 00:00 97.7 91 20 92/57 99 Nasal Cannula 2.0 09/15/16 23:42 96 09/15/16 20:16 97.7 91 19 102/57 98 Room Air 09/15/16 20:09 94 09/15/16 16:41 97.5 93 20 97/55 99 Nasal Cannula 2.0 Intake and Output 09/15/16 09/16/16 19:00 07:00 Intake Total 468.11 ml 178.16 ml Output Total 1400 ml 1400 ml Balance -931.89 ml -1221.84 ml Intake Oral 350 ml 50 ml IV Total 118.11 ml 128.16 ml Output Urine Total 1400 ml 1400 ml # Bowel Movements 2 Laboratory Tests 09/15/16 17:25: Arterial Blood pH 7.511H, Arterial Blood Partial Pressure CO2 42.0, Arterial Blood Partial Pressure O2 64.0L, Arterial Blood HCO3 32.8H, Arterial Blood Oxygen Saturation 66.5L, Arterial Blood Base Excess 9.0, Camron Test Positive Height (Feet): 5 Height (Inches): 4.00 Weight (Pounds): 163 General Appearance: no apparent distress, lethargic Cardiovascular: normal rate Respiratory/Chest: decreased breath sounds Objective no change in PE FAUZIA MAYA Sep 16, 2016 16:22
[2016-09-16] MEDS: DOBUTAMINE IV SCH (16:26)
[2016-09-16] MEDS: NS IV SCH (16:26)
--- NOTE | 2016-09-16 16:30 | Pulmonology Progress Note ---
Assessment/Plan Assessment/Plan ASESSMENT shock hypotension dehydration acute toxic metabolic encephalopathy acute on chronic systolic and diastolic heart failure dilated cardiomyopathy AICD moderate to severe TR s/p Mitroclip fpor MR severe pulmonary HTN moderate MR ? vegetation DM severe protein calorie malnutrition social isolation FTT impaired mobility and ADLs generalized weakness, r/o occult malignancy, r/o dementia delirium with cognitive impairment hx of breast Ca hx of thyroid Ca L buttock st [address] 2 POA PLAN OF CARE DAYAMI cardio follows ECHO with EF 10-15%m global LV hypokinesis and RVSP of 57 c/w severe pulmonary HTN, moderate to severe TR, significant diastolic dysfunction, moderate MR cardio follows ? vegetation per cardio management, recommend POP s/p gentle IVF on lasix bid, good UO ( initially was on hold) Dobutamine prior started for low UO , titrate medical management of CHF with diuretic, digoxin Jovanna Duplex neuro follows tumor markers reviewed, elevated CA 125-61.7 check pelvic US SPEP , + MILENA O2 HHN prn initial CXR with development of CHF, L pleural effusion fup CXR revealed increase in bilateral congestive changes, likely atelectasis at bases nephro follows lytes replaced as needed neuro eval noted off all mind altering medications anemia w/up noted, stable iron psych seen and evaluated diagnosed with delirium and cognitive impairment BS management with SS of insulin, [id number] wound care as per wound nurse recommendations SS for placement case discussed and evaluated by supervising physician Subjective Allergies: Coded Allergies: PENICILLIN (Verified Allergy, Unknown, Rash, 03/30/15) Subjective denies chest pain, SOB, palpitations, no fever, no signs of respiratory distress BP remains stable, diuresis well Objective Last 24 Hour Vital Signs Date Time Temp Pulse Resp B/P Pulse Ox O2 Delivery O2 Flow Rate FiO2 09/16/16 16:00 91 09/16/16 12:00 97.7 90 18 106/51 100 Nasal Cannula 2.0 09/16/16 12:00 104 09/16/16 08:23 87 09/16/16 08:00 97.7 85 18 101/47 99 Nasal Cannula 2.0 09/16/16 08:00 80 09/16/16 04:00 85 09/16/16 04:00 97.3 90 20 109/60 100 Nasal Cannula 2.0 09/16/16 00:00 97.7 91 20 92/57 99 Nasal Cannula 2.0 09/15/16 23:42 96 09/15/16 20:16 97.7 91 19 102/57 98 Room Air 09/15/16 20:09 94 09/15/16 16:41 97.5 93 20 97/55 99 Nasal Cannula 2.0 Intake and Output 09/15/16 09/16/16 19:00 07:00 Intake Total 468.11 ml 178.16 ml Output Total 1400 ml 1400 ml Balance -931.89 ml -1221.84 ml Intake Oral 350 ml 50 ml IV Total 118.11 ml 128.16 ml Output Urine Total 1400 ml 1400 ml # Bowel Movements 2 General Appearance: no acute distress HEENT: normocephalic, atraumatic, anicteric Respiratory/Chest: lungs clear, no accessory muscle use Cardiovascular: normal peripheral pulses, normal rate Abdomen: soft, non tender Genitourinary: normal external genitalia Neurologic/Psychiatric: alert, responsive Musculoskeletal: atrophy - BLE Laboratory Tests 09/15/16 17:25: Arterial Blood pH 7.511H, Arterial Blood Partial Pressure CO2 42.0, Arterial Blood Partial Pressure O2 64.0L, Arterial Blood HCO3 32.8H, Arterial Blood Oxygen Saturation 66.5L, Arterial Blood Base Excess 9.0, Camron Test Positive Current Medications Medications (Trade) Dose Ordered Sig/Michael Route PRN Reason Start Time Stop Time Status Last Admin Dose Admin Acetaminophen (Tylenol) 650 mg Q4H PRN ORAL fever 09/14/16 22:30 10/14/16 22:29 Chlorhexidine Gluconate 1 applic 1 applic DAILY TOPIC 09/15/16 04:00 10/15/16 03:59 09/16/16 08:24 Dextrose (Dextrose 50%) STAT PRN IV Hypoglycemia 09/15/16 14:30 10/15/16 14:29 Digoxin (Lanoxin) 0.125 mg DAILY ORAL 09/15/16 09:00 10/15/16 08:59 09/16/16 08:23 Dobutamine HCl/ Sodium Chloride (Dobutrex/Sodium Chloride) 250 ml @ 10.68 mls/ hr Q24H IV 09/15/16 16:00 10/15/16 15:59 09/16/16 16:26 Furosemide (Lasix) 40 mg EVERY 12 HOURS IV 09/14/16 21:00 7/15/17 20:59 09/16/16 08:22 Heparin Sodium (Porcine) (Heparin 5000 units/ml) 5,000 units EVERY 12 HOURS SUBQ 09/14/16 21:00 10/14/16 20:59 09/16/16 08:23 Insulin Aspart (NovoLOG) BEFORE MEALS AND HS SUBQ 09/14/16 21:00 10/14/16 20:59 09/15/16 21:39 Lorazepam (Ativan 2mg/ml 1ml) 0.5 mg Q4H PRN IV For Anxiety 09/14/16 22:30 09/21/16 22:29 Morphine Sulfate (Morphine Sulfate) 1 mg Q4H PRN IVP For Pain 09/14/16 22:45 09/21/16 22:44 09/16/16 15:34 Ondansetron HCl (Zofran) 4 mg Q6H PRN IVP Nausea & Vomiting 09/14/16 20:30 10/14/16 20:29 Pantoprazole (Protonix) 40 mg BID ORAL 09/15/16 09:00 10/15/16 08:59 09/16/16 08:23 Polyethylene Glycol (Miralax) 17 gm HSPRN PRN ORAL Constipation 09/14/16 21:00 10/14/16 20:59 Zolpidem Tartrate (Ambien) 5 mg HSPRN PRN ORAL Insomnia 09/14/16 21:00 10/14/16 20:59 09/15/16 22:10 [facility] Clifford NP Sep 16, 2016 16:30
[2016-09-16 20:00] VITALS: BP 100/59
--- NOTE | 2016-09-16 21:03 | Cardiology Progress Note ---
Assessment/Plan Problem List: (1) Dehydration (2) ICD (implantable cardioverter-defibrillator) in place (3) Hypotension (4) Shock (5) Renal insufficiency (6) Diabetes mellitus Status: stable, progressing Status Narrative Mrs. Mejia has MR, dilated cm, w/ EF < 20%, and is s/p bivent ICD revision recently she was adm w/ CHF, but is currently hemodynamically stable - diuresing well w/ iv lasix bid. Assessment/Plan Continue current meds. repeat labs in am Subjective ROS Limited/Unobtainable: No Subjective Pt is comfortable. No c/o dyspnea Objective Last 24 Hour Vital Signs Date Time Temp Pulse Resp B/P Pulse Ox O2 Delivery O2 Flow Rate FiO2 09/16/16 16:00 97.7 94 18 106/65 100 Nasal Cannula 2.5 09/16/16 16:00 91 09/16/16 12:00 97.7 90 18 106/51 100 Nasal Cannula 2.0 09/16/16 12:00 104 09/16/16 08:23 87 09/16/16 08:00 97.7 85 18 101/47 99 Nasal Cannula 2.0 09/16/16 08:00 80 09/16/16 04:00 85 09/16/16 04:00 97.3 90 20 109/60 100 Nasal Cannula 2.0 09/16/16 00:00 97.7 91 20 92/57 99 Nasal Cannula 2.0 09/15/16 23:42 96 General Appearance: WD/WN, no apparent distress, alert EENT: PERRL/EOMI Neck: non-tender, supple, no JVD Rhythm: NSR Cardiovascular: normal rate, regular rhythm, systolic murmur - i/vi along LSB Respiratory/Chest: lungs clear Abdomen: non tender, soft Extremities: moderate edema Intake and Output 09/15/16 09/16/16 19:00 07:00 Intake Total 468.11 ml 178.16 ml Output Total 1400 ml 1400 ml Balance -931.89 ml -1221.84 ml Intake Oral 350 ml 50 ml IV Total 118.11 ml 128.16 ml Output Urine Total 1400 ml 1400 ml # Bowel Movements 2 Labs Test 09/14/16 04:30 09/15/16 03:20 09/15/16 17:25 White Blood Count 3.8 K/UL (4.8-10.8) 3.8 K/UL (4.8-10.8) Red Blood Count 3.90 M/UL (4.20-5.40) 3.85 M/UL (4.20-5.40) Hemoglobin 10.4 G/DL (12.0-16.0) 10.0 G/DL (12.0-16.0) Hematocrit 31.4 % (37.0-47.0) 31.0 % (37.0-47.0) Mean Corpuscular Volume 80 FL (80-99) 81 FL (80-99) Mean Corpuscular Hemoglobin 26.5 PG (27.0-31.0) 26.1 PG (27.0-31.0) Mean Corpuscular Hemoglobin Concent 33.0 G/DL (32.0-36.0) 32.4 G/DL (32.0-36.0) Red Cell Distribution Width 16.8 % (11.6-14.8) 16.5 % (11.6-14.8) Platelet Count 325 K/UL (150-450) 307 K/UL (150-450) Mean Platelet Volume 8.5 FL (6.5-10.1) 7.3 FL (6.5-10.1) Neutrophils (%) (Auto) % (45.0-75.0) % (45.0-75.0) Lymphocytes (%) (Auto) % (20.0-45.0) % (20.0-45.0) Monocytes (%) (Auto) % (1.0-10.0) % (1.0-10.0) Eosinophils (%) (Auto) % (0.0-3.0) % (0.0-3.0) Basophils (%) (Auto) % (0.0-2.0) % (0.0-2.0) Sodium Level 136 mEQ/L (135-145) 135 mEQ/L (135-145) Potassium Level 3.5 mEQ/L (3.4-4.9) 3.6 mEQ/L (3.4-4.9) Chloride Level 95 mEQ/L (98-107) 94 mEQ/L (98-107) Carbon Dioxide Level 31 mEQ/L (20-30) 29 mEQ/L (20-30) Anion Gap 10 (5-15) 12 (5-15) Blood Urea Nitrogen 11 mg/dL (7-23) 12 mg/dL (7-23) Creatinine 0.6 mg/dL (0.5-0.9) 0.6 mg/dL (0.5-0.9) Estimat Glomerular Filtration Rate mL/min (>60) mL/min (>60) Glucose Level 57 mg/dL (74-106) 73 mg/dL (74-106) Lactic Acid Level 1.00 mmol/L (0.66-2.22) Uric Acid 5.8 mg/dL (3.0-7.5) Calcium Level 7.0 mg/dL (8.6-10.2) 7.6 mg/dL (8.6-10.2) Phosphorus Level 3.1 mg/dL (2.5-4.8) 2.8 mg/dL (2.5-4.8) Magnesium Level 2.1 mg/dL (1.7-2.5) 1.9 mg/dL (1.7-2.5) Total Bilirubin 0.6 mg/dL (0.0-1.2) 0.6 mg/dL (0.0-1.2) Aspartate Amino Transf (AST/SGOT) 19 U/L (5-40) 20 U/L (5-40) Alanine Aminotransferase (ALT/SGPT) 8 U/L (3-33) 10 U/L (3-33) Alkaline Phosphatase 72 U/L (35-104) 74 U/L (35-104) Troponin I < 0.30 ng/mL (<=0.30) C-Reactive Protein, Quantitative 0.9 mg/dL (< 0.5) Pro-B-Type Natriuretic Peptide 36018 pg/mL (0-125) Total Protein 4.9 g/dL (6.6-8.7) 5.1 g/dL (6.6-8.7) Albumin 2.0 g/dL (3.5-5.2) 2.0 g/dL (3.5-5.2) Globulin 2.9 g/dL 3.1 g/dL Albumin/Globulin Ratio 0.6 (1.0-2.7) 0.6 (1.0-2.7) Arterial Blood pH 7.511 (7.350-7.450) Arterial Blood Partial Pressure CO2 42.0 mmHg (35.0-45.0) Arterial Blood Partial Pressure O2 64.0 mmHg (75.0-100.0) Arterial Blood HCO3 32.8 mmol/L (22.0-26.0) Arterial Blood Oxygen Saturation 66.5 % (92.0-98.0) Arterial Blood Base Excess 9.0 Camron Test Positive AUGIE FONSECA Sep 16, 2016 21:03
[2016-09-17] VITALS: BP 109/58
[2016-09-17 04:00] VITALS: BP 104/57
[2016-09-17 05:41] LABS: MEAN CORPUSCULAR HGB CONC 31.9 G/DL (32.0-36.0); MEAN CORPUSCULAR VOLUME 82 FL (80-99); MEAN PLATELET VOLUME 6.6 FL (6.5-10.1); PLATELET COUNT 315 K/UL (150-450); RED CELL DISTRIBUTION WIDTH 16.8 % (11.6-14.8); WHITE BLOOD COUNT 2.9 K/UL (4.8-10.8)
[2016-09-17 05:48] LABS: ANION GAP 9 (5-15); CALCIUM 7.6 mg/dL (8.6-10.2); CARBON DIOXIDE 32 mEQ/L (20-30); CHLORIDE 92 mEQ/L (98-107); CREATININE 0.7 mg/dL (0.5-0.9); HEMOLYSIS 2; POTASSIUM 2.9 mEQ/L (3.4-4.9); SODIUM 133 mEQ/L (135-145)
[2016-09-17] MEDS: NovoLOG Insulin Flexpen SUBQ SCH ×4 (06:30→21:00)
[2016-09-17 08:00] VITALS: BP 100/59
[2016-09-17] MEDS ORDERED: KCl 10% 40mEq/30ml liquid ORAL ONE (08:00)
[2016-09-17] MEDS: Dyna-Hex 2% Top Sol 8oz TOPIC SCH (08:27)
[2016-09-17] MEDS: Digoxin 0.125mg tab ORAL SCH (08:28)
[2016-09-17] MEDS: Heparin 5000 units/ml inj SUBQ SCH ×2 (08:29→21:52)
--- NOTE | 2016-09-17 08:58 | Pulmonology Progress Note ---
Assessment/Plan Assessment/Plan ASESSMENT shock hypotension dehydration acute toxic metabolic encephalopathy acute on chronic systolic and diastolic heart failure dilated cardiomyopathy AICD moderate to severe TR s/p Mitro-clip fpor MR severe pulmonary HTN moderate MR DM severe protein calorie malnutrition social isolation FTT impaired mobility and ADLs generalized weakness, r/o occult malignancy, r/o dementia delirium with cognitive impairment hx of breast Ca hx of thyroid Ca L buttock st [address] PO[address] 2 POA PLAN OF CARE DAYAMI cardio follows ECHO with EF 10-15%m global LV hypokinesis and RVSP of 57 c/w severe pulmonary HTN, moderate to severe TR, significant diastolic dysfunction, moderate MR cardio follows ? vegetation on ECHO, per cardio ECHO reviewed - she has thickening of aortic valve leaflets, but no apparent vegetation. Blood cultures have been negative, and she does not appear toxic. s/p gentle IVF on lasix bid, good UO ( initially was on hold) Dobutamine prior started for low UO , titrate medical management of CHF with diuretic, digoxin [place] Duplex neuro follows tumor markers reviewed, elevated CA 125-61.7 check pelvic US SPEP , + MILENA O2 HHN prn initial CXR with development of CHF, L pleural effusion fup CXR revealed increase in bilateral congestive changes, likely atelectasis at bases nephro follows lytes replaced as needed neuro eval noted off all mind altering medications anemia w/up noted, stable iron psych seen and evaluated diagnosed with delirium and cognitive impairment BS management with SS of insulin, [id number] wound care as per wound nurse recommendations SS for placement case discussed and evaluated by supervising physician Subjective Allergies: Coded Allergies: PENICILLIN (Verified Allergy, Unknown, Rash, 03/30/15) Subjective denies chest pain, SOB, palpitations, no fever, no signs of respiratory distress BP remains stable, diuresis well K-2.9 today Objective Last 24 Hour Vital Signs Date Time Temp Pulse Resp B/P Pulse Ox O2 Delivery O2 Flow Rate FiO2 09/17/16 08:28 78 09/17/16 08:03 78 09/17/16 06:35 Nasal Cannula 2.0 28 09/17/16 06:35 97 Nasal Cannula 2.0 28 09/17/16 04:00 96.8 87 20 104/57 98 Nasal Cannula 2.0 09/17/16 04:00 83 09/17/16 00:00 97.9 87 20 109/58 100 Nasal Cannula 2.0 09/16/16 23:40 85 09/16/16 20:00 97.5 86 20 100/59 100 Nasal Cannula 2.0 09/16/16 19:00 96 09/16/16 16:00 97.7 94 18 106/65 100 Nasal Cannula 2.5 09/16/16 16:00 91 09/16/16 12:00 97.7 90 18 106/51 100 Nasal Cannula 2.0 09/16/16 12:00 104 Intake and Output 09/16/16 09/17/16 18:59 06:59 Intake Total 138.84 ml 162.80 ml Output Total 1550 ml 1600 ml Balance -1411.16 ml -1437.20 ml Intake Oral 50 ml IV Total 138.84 ml 112.80 ml Output Urine Total 1550 ml 1600 ml Objective General Appearance: no acute distress HEENT: normocephalic, atraumatic, anicteric Respiratory/Chest: lungs clear, no accessory muscle use Cardiovascular: normal peripheral pulses, normal rate Abdomen: soft, non tender Genitourinary: normal external genitalia Neurologic/Psychiatric: alert, responsive Musculoskeletal: atrophy - BLE Laboratory Tests 09/17/16 04:00: White Blood Count 2.9L, Red Blood Count 3.60L, Hemoglobin 9.4L, Hematocrit 29.4L , Mean Corpuscular Volume 82, Mean Corpuscular Hemoglobin 26.0L, Mean Corpuscular Hemoglobin Concent 31.9L, Red Cell Distribution Width 16.8H, Platelet Count 315, Mean Platelet Volume 6.6, Neutrophils (%) (Auto) , Lymphocytes (%) (Auto) , Monocytes (%) (Auto) , Eosinophils (%) (Auto) , Basophils (%) (Auto) , Neutrophils % (Manual) [Pending], Lymphocytes % (Manual) [Pending], Platelet Estimate [Pending], Platelet Morphology [Pending], Sodium Level 133L, Potassium Level 2.9L, Chloride Level 92L, Carbon Dioxide Level 32H, Anion Gap 9, Blood Urea Nitrogen 10, Creatinine 0.7, Estimat Glomerular Filtration Rate , Glucose Level 57L, Calcium Level 7.6L, Magnesium Level 1.7 Current Medications Medications (Trade) Dose Ordered Sig/Michael Route PRN Reason Start Time Stop Time Status Last Admin Dose Admin Acetaminophen (Tylenol) 650 mg Q4H PRN ORAL fever 09/14/16 22:30 10/14/16 22:29 Chlorhexidine Gluconate 1 applic 1 applic DAILY TOPIC 09/15/16 04:00 10/15/16 03:59 09/17/16 08:27 Dextrose (Dextrose 50%) STAT PRN IV Hypoglycemia 09/15/16 14:30 10/15/16 14:29 Digoxin (Lanoxin) 0.125 mg DAILY ORAL 09/15/16 09:00 10/15/16 08:59 09/17/16 08:28 Dobutamine HCl/ Sodium Chloride (Dobutrex/Sodium Chloride) 250 ml @ 10.68 mls/ hr Q24H IV 09/15/16 16:00 10/15/16 15:59 09/16/16 16:26 Furosemide (Lasix) 40 mg EVERY 12 HOURS IV 09/14/16 21:00 10/14/16 20:59 09/17/16 08:28 Heparin Sodium (Porcine) (Heparin 5000 units/ml) 5,000 units EVERY 12 HOURS SUBQ 09/14/16 21:00 10/14/16 20:59 09/17/16 08:29 Insulin Aspart (NovoLOG) BEFORE MEALS AND HS SUBQ 09/14/16 21:00 10/14/16 20:59 09/15/16 21:39 Lorazepam (Ativan 2mg/ml 1ml) 0.5 mg Q4H PRN IV For Anxiety 09/14/16 22:30 09/21/16 22:29 Morphine Sulfate (Morphine Sulfate) 1 mg Q4H PRN IVP For Pain 09/14/16 22:45 09/21/16 22:44 09/16/16 19:45 Ondansetron HCl (Zofran) 4 mg Q6H PRN IVP Nausea & Vomiting 09/14/16 20:30 10/14/16 20:29 Pantoprazole (Protonix) 40 mg BID ORAL 09/15/16 09:00 10/15/16 08:59 09/17/16 08:28 Polyethylene Glycol (Miralax) 17 gm HSPRN PRN ORAL Constipation 09/14/16 21:00 10/14/16 20:59 Potassium Chloride (K-Dur) 40 meq TWICE A DAY ORAL 09/17/16 18:00 10/17/16 17:59 Zolpidem Tartrate (Ambien) 5 mg HSPRN PRN ORAL Insomnia 09/14/16 21:00 10/14/16 20:59 09/15/16 22:10 Lino ([facility])Paty NP Sep 17, 2016 08:58
[2016-09-17 10:21] LABS: BAND NEUTROPHILS % (MANUAL) 0 % (0-8); BASOPHILS % (MANUAL) 3 % (0-2); EOSINOPHILS % (MANUAL) 1 % (0-3); LYMPHOCYTES % (MANUAL) 17 % (20-45); NEUTROPHILS % (MANUAL) 62 % (45-75); PLATELET ESTIMATE ADEQUATE; PLATELET MORPHOLOGY NORMAL; TOTAL CELLS COUNTED 100
[2016-09-17 10:22] LABS: ANISOCYTOSIS 1+; HYPOCHROMASIA 1+
[2016-09-17] MEDS: Miralax 17gm pkt ORAL PRN (11:12)
[2016-09-17 12:08] VITALS: BP 95/57
--- NOTE | 2016-09-17 13:11 | Cardiology Progress Note ---
Assessment/Plan Problem List: (1) Dehydration (2) ICD (implantable cardioverter-defibrillator) in place (3) Hypotension (4) Shock (5) Renal insufficiency (6) Diabetes mellitus Status: stable, unchanged Status Narrative Mrs. Mejia has MR, s/p mitraclip procedure, dilated cm, w/ EF < 20%, and is s/ p bivent ICD revision recently She was adm w/ CHF, but is currently hemodynamically stable - diuresing well w/ iv lasix bid. ECHO w/ severe systolic dysfunction, and initially reported ? of small vegetation on aortic valve. Assessment/Plan ECHO reviewed - she has thickening of aortic valve leaflets, but no apparent vegetation. Her blood cultures have been negative, and she does not appear toxic. Rec continuing current meds for chf w/u for abd pain per primary team. Subjective ROS Limited/Unobtainable: No Subjective Pt is c/o lower abd pain, but is eating lunch No n/v, diarrhea. Objective Last 24 Hour Vital Signs Date Time Temp Pulse Resp B/P Pulse Ox O2 Delivery O2 Flow Rate FiO2 09/17/16 12:08 95 09/17/16 12:08 97.7 95 18 95/57 100 Nasal Cannula 2.0 09/17/16 08:28 78 09/17/16 08:03 78 09/17/16 08:00 97.5 90 20 100/59 100 Nasal Cannula 2.0 09/17/16 06:35 Nasal Cannula 2.0 28 09/17/16 06:35 97 Nasal Cannula 2.0 28 09/17/16 04:00 96.8 87 20 104/57 98 Nasal Cannula 2.0 09/17/16 04:00 83 09/17/16 00:00 97.9 87 20 109/58 100 Nasal Cannula 2.0 09/16/16 23:40 85 09/16/16 20:00 97.5 86 20 100/59 100 Nasal Cannula 2.0 09/16/16 19:00 96 09/16/16 16:00 97.7 94 18 106/65 100 Nasal Cannula 2.5 09/16/16 16:00 91 General Appearance: WD/WN, alert, mild distress EENT: PERRL/EOMI Neck: supple, no JVD Rhythm: NSR Cardiovascular: normal rate, regular rhythm, systolic murmur - i/vi HSM at LLSB - apex, gallop/S3 Respiratory/Chest: other - scattered rhonchi bilat Abdomen: normal bowel sounds, soft, other - min tenderness lower quadrants bilat. no guarding or rebound Extremities: moderate edema Intake and Output 09/16/16 09/17/16 18:59 06:59 Intake Total 138.84 ml 162.80 ml Output Total 1550 ml 1600 ml Balance -1411.16 ml -1437.20 ml Intake Oral 50 ml IV Total 138.84 ml 112.80 ml Output Urine Total 1550 ml 1600 ml Laboratory Tests Test 09/17/16 04:00 White Blood Count 2.9 K/UL (4.8-10.8) L Red Blood Count 3.60 M/UL (4.20-5.40) L Hemoglobin 9.4 G/DL (12.0-16.0) L Hematocrit 29.4 % (37.0-47.0) L Mean Corpuscular Volume 82 FL (80-99) Mean Corpuscular Hemoglobin 26.0 PG (27.0-31.0) L Mean Corpuscular Hemoglobin Concent 31.9 G/DL (32.0-36.0) L Red Cell Distribution Width 16.8 % (11.6-14.8) H Platelet Count 315 K/UL (150-450) Mean Platelet Volume 6.6 FL (6.5-10.1) Neutrophils (%) (Auto) % (45.0-75.0) Lymphocytes (%) (Auto) % (20.0-45.0) Monocytes (%) (Auto) % (1.0-10.0) Eosinophils (%) (Auto) % (0.0-3.0) Basophils (%) (Auto) % (0.0-2.0) Differential Total Cells Counted 100 Neutrophils % (Manual) 62 % (45-75) Lymphocytes % (Manual) 17 % (20-45) L Monocytes % (Manual) 17 % (1-10) H Eosinophils % (Manual) 1 % (0-3) Basophils % (Manual) 3 % (0-2) H Band Neutrophils 0 % (0-8) Platelet Estimate Adequate Platelet Morphology Normal Hypochromasia 1+ Anisocytosis 1+ Sodium Level 133 mEQ/L (135-145) L Potassium Level 2.9 mEQ/L (3.4-4.9) L Chloride Level 92 mEQ/L (98-107) L Carbon Dioxide Level 32 mEQ/L (20-30) H Anion Gap 9 (5-15) Blood Urea Nitrogen 10 mg/dL (7-23) Creatinine 0.7 mg/dL (0.5-0.9) Estimat Glomerular Filtration Rate mL/min (>60) Glucose Level 57 mg/dL (74-106) L Calcium Level 7.6 mg/dL (8.6-10.2) L Magnesium Level 1.7 mg/dL (1.7-2.5) AUGIE FONSECA Sep 17, 2016 13:11
[2016-09-17 15:58] VITALS: BP 95/53
[2016-09-17] MEDS: DOBUTAMINE IV SCH ×2 (16:00→16:52)
[2016-09-17] MEDS: NS IV SCH ×2 (16:00→16:52)
[2016-09-17] MEDS: Morphine Sulfate 2mg/ml Inj IVP PRN ×2 (18:51→22:42)
[2016-09-17] MEDS: LORazepam Inj 2mg/ml 1ml IV PRN (20:45)
[2016-09-17 20:51] VITALS: BP 122/57
--- NOTE | 2016-09-17 21:19 | General Progress Note ---
Assessment/Plan Status: stable - from renal stand point Assessment/Plan status: Proteinuria, likely Diabetic Nephropathy HypoAlbuminemia: Increase Loss vs Decrease production- UTI Anemia Failure to thrive / Dehydration Pacer severe cardiomyopathy Ej Fx 20% Low Ca , corrects with Low Alb Plan; optimize cardiac status- Anemia hauser- K supplement- as needed 24 H urine for protein- nominal monitor renal parameters gastric support- stop [facility]- 2D Echo : Low EjFx per orders Subjective ROS Limited/Unobtainable: No Constitutional: Reports: malaise, weakness Allergies: Coded Allergies: PENICILLIN (Verified Allergy, Unknown, Rash, 03/30/15) Objective Last 24 Hour Vital Signs Date Time Temp Pulse Resp B/P Pulse Ox O2 Delivery O2 Flow Rate FiO2 09/17/16 20:51 98.9 87 20 122/57 100 Nasal Cannula 2.0 09/17/16 16:11 95 09/17/16 15:58 97.9 95 20 95/53 98 Nasal Cannula 2.0 09/17/16 12:08 95 09/17/16 12:08 97.7 95 18 95/57 100 Nasal Cannula 2.0 09/17/16 08:28 78 09/17/16 08:03 78 09/17/16 08:00 97.5 90 20 100/59 100 Nasal Cannula 2.0 09/17/16 06:35 Nasal Cannula 2.0 28 09/17/16 06:35 97 Nasal Cannula 2.0 28 09/17/16 04:00 96.8 87 20 104/57 98 Nasal Cannula 2.0 09/17/16 04:00 83 09/17/16 00:00 97.9 87 20 109/58 100 Nasal Cannula 2.0 09/16/16 23:40 85 Intake and Output 09/16/16 09/17/16 19:00 07:00 Intake Total 134.16 ml 167.48 ml Output Total 1550 ml 1600 ml Balance -1415.84 ml -1432.52 ml Intake Oral 50 ml IV Total 134.16 ml 117.48 ml Output Urine Total 1550 ml 1600 ml Laboratory Tests 09/17/16 04:00: White Blood Count 2.9L, Red Blood Count 3.60L, Hemoglobin 9.4L, Hematocrit 29.4L , Mean Corpuscular Volume 82, Mean Corpuscular Hemoglobin 26.0L, Mean Corpuscular Hemoglobin Concent 31.9L, Red Cell Distribution Width 16.8H, Platelet Count 315, Mean Platelet Volume 6.6, Neutrophils (%) (Auto) , Lymphocytes (%) (Auto) , Monocytes (%) (Auto) , Eosinophils (%) (Auto) , Basophils (%) (Auto) , Differential Total Cells Counted 100, Neutrophils % ( Manual) 62, Lymphocytes % (Manual) 17L, Monocytes % (Manual) 17H, Eosinophils % (Manual) 1, Basophils % (Manual) 3H, Band Neutrophils 0, Platelet Estimate Adequate, Platelet Morphology Normal, Hypochromasia 1+, Anisocytosis 1+, Sodium Level 133L, Potassium Level 2.9L, Chloride Level 92L, Carbon Dioxide Level 32H, Anion Gap 9, Blood Urea Nitrogen 10, Creatinine 0.7, Estimat Glomerular Filtration Rate , Glucose Level 57L, Calcium Level 7.6L, Magnesium Level 1.7 Height (Feet): 5 Height (Inches): 4.00 Weight (Pounds): 153 General Appearance: no apparent distress Cardiovascular: normal rate Respiratory/Chest: decreased breath sounds Abdomen: distended Objective no change in PE FAUZIA MAYA Sep 17, 2016 21:19
[2016-09-18] VITALS: BP 95/55
[2016-09-18 04:00] VITALS: BP 92/54
[2016-09-18 05:09] LABS: MEAN CORPUSCULAR HEMOGLOBIN 26.1 PG (27.0-31.0); MEAN CORPUSCULAR HGB CONC 31.7 G/DL (32.0-36.0); MEAN CORPUSCULAR VOLUME 82 FL (80-99); MEAN PLATELET VOLUME 6.2 FL (6.5-10.1); PLATELET COUNT 319 K/UL (150-450); RED CELL DISTRIBUTION WIDTH 17.2 % (11.6-14.8); WHITE BLOOD COUNT 3.3 K/UL (4.8-10.8)
[2016-09-18 05:19] LABS: ANION GAP 6 (5-15); CALCIUM 7.8 mg/dL (8.6-10.2); CARBON DIOXIDE 33 mEQ/L (20-30); CHLORIDE 96 mEQ/L (98-107); CREATININE 0.7 mg/dL (0.5-0.9); HEMOLYSIS 1; POTASSIUM 3.5 mEQ/L (3.4-4.9); SODIUM 135 mEQ/L (135-145)
[2016-09-18] MEDS: NovoLOG Insulin Flexpen SUBQ SCH ×4 (06:05→20:51)
[2016-09-18 06:45] LABS: BILIRUBIN,DIRECT 0.2 mg/dL (0.1-0.3); CRP QUANT 0.4 mg/dL (< 0.5); MAGNESIUM 1.7 mg/dL (1.7-2.5); PHOSPHORUS 3.5 mg/dL (2.5-4.8); TOTAL PROTEIN 5.1 g/dL (6.6-8.7); URIC ACID 6.6 mg/dL (3.0-7.5)
[2016-09-18 08:10] VITALS: BP 102/58
[2016-09-18 08:32] LABS: ANISOCYTOSIS 1+; BAND NEUTROPHILS % (MANUAL) 0 % (0-8); BASOPHILS % (MANUAL) 1 % (0-2); EOSINOPHILS % (MANUAL) 1 % (0-3); HYPOCHROMASIA 1+; LYMPHOCYTES % (MANUAL) 19 % (20-45); NEUTROPHILS % (MANUAL) 63 % (45-75); PLATELET ESTIMATE ADEQUATE; PLATELET MORPHOLOGY NORMAL; TOTAL CELLS COUNTED 100
[2016-09-18] MEDS: KCl 10% 40mEq/30ml liquid ORAL SCH ×2 (08:51→17:31)
[2016-09-18] MEDS: Heparin 5000 units/ml inj SUBQ SCH ×2 (08:52→20:44)
[2016-09-18] MEDS: Digoxin 0.125mg tab ORAL SCH (08:52)
[2016-09-18] MEDS: Dyna-Hex 2% Top Sol 8oz TOPIC SCH (08:55)
[2016-09-18] MEDS: LORazepam Inj 2mg/ml 1ml IV PRN (10:55)
--- NOTE | 2016-09-18 11:17 | General Progress Note ---
Assessment/Plan Status: stable - from renal stand Assessment/Plan status: Proteinuria, likely Diabetic Nephropathy HypoAlbuminemia: Increase Loss vs Decrease production- UTI Anemia Failure to thrive / Dehydration Pacer severe cardiomyopathy Ej Fx 20% Low Ca , corrects with Low Alb Plan; optimize cardiac status- Anemia hauser- K supplement- as needed 24 H urine for protein- nominal monitor renal parameters gastric support- stop [facility]- 2D Echo : Low EjFx per orders Subjective ROS Limited/Unobtainable: No Constitutional: Reports: malaise, weakness Allergies: Coded Allergies: PENICILLIN (Verified Allergy, Unknown, Rash, 03/30/15) Objective Last 24 Hour Vital Signs Date Time Temp Pulse Resp B/P Pulse Ox O2 Delivery O2 Flow Rate FiO2 09/18/16 08:52 89 09/18/16 08:10 97.7 89 18 102/58 100 Nasal Cannula 2.0 09/18/16 07:58 79 09/18/16 07:27 Nasal Cannula 2.0 28 09/18/16 07:27 99 Nasal Cannula 2.0 28 09/18/16 04:02 86 09/18/16 04:00 97.2 86 20 92/54 100 Nasal Cannula 2.0 09/18/16 00:00 97.2 87 20 95/55 97 Nasal Cannula 2.0 09/17/16 23:48 94 09/17/16 20:51 98.9 87 20 122/57 100 Nasal Cannula 2.0 09/17/16 19:45 88 09/17/16 16:11 95 09/17/16 15:58 97.9 95 20 95/53 98 Nasal Cannula 2.0 09/17/16 12:08 95 09/17/16 12:08 97.7 95 18 95/57 100 Nasal Cannula 2.0 Intake and Output 09/17/16 09/18/16 19:00 07:00 Intake Total 428.16 ml 228.16 ml Output Total 1100 ml 1400 ml Balance -671.84 ml -1171.84 ml Intake Oral 300 ml 100 ml IV Total 128.16 ml 128.16 ml Output Urine Total 1100 ml 1400 ml Laboratory Tests 09/18/16 04:00: White Blood Count 3.3L, Red Blood Count 3.70L, Hemoglobin 9.7L, Hematocrit 30.5L , Mean Corpuscular Volume 82, Mean Corpuscular Hemoglobin 26.1L, Mean Corpuscular Hemoglobin Concent 31.7L, Red Cell Distribution Width 17.2H, Platelet Count 319, Mean Platelet Volume 6.2L, Neutrophils (%) (Auto) , Lymphocytes (%) (Auto) , Monocytes (%) (Auto) , Eosinophils (%) (Auto) , Basophils (%) (Auto) , Differential Total Cells Counted 100, Neutrophils % ( Manual) 63, Lymphocytes % (Manual) 19L, Monocytes % (Manual) 16H, Eosinophils % (Manual) 1, Basophils % (Manual) 1, Band Neutrophils 0, Platelet Estimate Adequate, Platelet Morphology Normal, Hypochromasia 1+, Anisocytosis 1+, Sodium Level 135, Potassium Level 3.5, Chloride Level 96L, Carbon Dioxide Level 33H, Anion Gap 6, Blood Urea Nitrogen 10, Creatinine 0.7, Estimat Glomerular Filtration Rate , Glucose Level 97, Uric Acid 6.6, Calcium Level 7.8L, Phosphorus Level 3.5, Magnesium Level 1.7, Total Bilirubin 0.6, Direct Bilirubin 0.2, Aspartate Amino Transf (AST/SGOT) 16, Alanine Aminotransferase ( ALT/SGPT) 8, Alkaline Phosphatase 67, C-Reactive Protein, Quantitative 0.4, Pro- B-Type Natriuretic Peptide 50245H, Total Protein 5.1L, Albumin 2.3L Height (Feet): 5 Height (Inches): 4.00 Weight (Pounds): 155 General Appearance: no apparent distress, lethargic Cardiovascular: normal rate Respiratory/Chest: decreased breath sounds Abdomen: distended Objective no change in PE FAUZIA MAYA Sep 18, 2016 11:17
[2016-09-18 11:35] VITALS: BP 112/59
--- NOTE | 2016-09-18 12:02 | Pulmonology Progress Note ---
Assessment/Plan Problems: (1) Shock (2) Hypotension (3) EF< 20 (4) ICD (implantable cardioverter-defibrillator) in place (5) Renal insufficiency (6) Diabetes mellitus (7) Failure to thrive (8) Generalized weakness (9) Isolation, social (10) Protein-calorie malnutrition, severe (11) Impaired mobility and ADLs Assessment/Plan improving diuresing well on dobutamine drip check cxr and BNP in am dc planning to a facility Medical application was started. Subjective ROS Limited/Unobtainable: No Interval Events: awake, no new complains, confused Allergies: Coded Allergies: PENICILLIN (Verified Allergy, Unknown, Rash, 03/30/15) Objective Last 24 Hour Vital Signs Date Time Temp Pulse Resp B/P Pulse Ox O2 Delivery O2 Flow Rate FiO2 09/18/16 11:35 97.9 88 19 112/59 100 Nasal Cannula 2.0 09/18/16 11:29 88 09/18/16 08:52 89 09/18/16 08:10 97.7 89 18 102/58 100 Nasal Cannula 2.0 09/18/16 07:58 79 09/18/16 07:27 Nasal Cannula 2.0 28 09/18/16 07:27 99 Nasal Cannula 2.0 28 09/18/16 04:02 86 09/18/16 04:00 97.2 86 20 92/54 100 Nasal Cannula 2.0 09/18/16 00:00 97.2 87 20 95/55 97 Nasal Cannula 2.0 09/17/16 23:48 94 09/17/16 20:51 98.9 87 20 122/57 100 Nasal Cannula 2.0 09/17/16 19:45 88 09/17/16 16:11 95 09/17/16 15:58 97.9 95 20 95/53 98 Nasal Cannula 2.0 09/17/16 12:08 95 09/17/16 12:08 97.7 95 18 95/57 100 Nasal Cannula 2.0 Intake and Output 09/17/16 09/18/16 19:00 07:00 Intake Total 428.16 ml 228.16 ml Output Total 1100 ml 1400 ml Balance -671.84 ml -1171.84 ml Intake Oral 300 ml 100 ml IV Total 128.16 ml 128.16 ml Output Urine Total 1100 ml 1400 ml General Appearance: WD/WN HEENT: normocephalic, atraumatic Respiratory/Chest: chest wall non-tender, lungs clear Breasts: no masses Cardiovascular: normal peripheral pulses Abdomen: normal bowel sounds, soft, non tender Extremities: no cyanosis, no clubbing Skin: no rash, no lesions Laboratory Tests 09/18/16 04:00: White Blood Count 3.3L, Red Blood Count 3.70L, Hemoglobin 9.7L, Hematocrit 30.5L , Mean Corpuscular Volume 82, Mean Corpuscular Hemoglobin 26.1L, Mean Corpuscular Hemoglobin Concent 31.7L, Red Cell Distribution Width 17.2H, Platelet Count 319, Mean Platelet Volume 6.2L, Neutrophils (%) (Auto) , Lymphocytes (%) (Auto) , Monocytes (%) (Auto) , Eosinophils (%) (Auto) , Basophils (%) (Auto) , Differential Total Cells Counted 100, Neutrophils % ( Manual) 63, Lymphocytes % (Manual) 19L, Monocytes % (Manual) 16H, Eosinophils % (Manual) 1, Basophils % (Manual) 1, Band Neutrophils 0, Platelet Estimate Adequate, Platelet Morphology Normal, Hypochromasia 1+, Anisocytosis 1+, Sodium Level 135, Potassium Level 3.5, Chloride Level 96L, Carbon Dioxide Level 33H, Anion Gap 6, Blood Urea Nitrogen 10, Creatinine 0.7, Estimat Glomerular Filtration Rate , Glucose Level 97, Uric Acid 6.6, Calcium Level 7.8L, Phosphorus Level 3.5, Magnesium Level 1.7, Total Bilirubin 0.6, Direct Bilirubin 0.2, Aspartate Amino Transf (AST/SGOT) 16, Alanine Aminotransferase ( ALT/SGPT) 8, Alkaline Phosphatase 67, C-Reactive Protein, Quantitative 0.4, Pro- B-Type Natriuretic Peptide 89094P, Total Protein 5.1L, Albumin 2.3L Current Medications Medications (Trade) Dose Ordered Sig/Michael Route PRN Reason Start Time Stop Time Status Last Admin Dose Admin Acetaminophen (Tylenol) 650 mg Q4H PRN ORAL fever 09/14/16 22:30 10/14/16 22:29 Chlorhexidine Gluconate 1 applic 1 applic DAILY TOPIC 09/15/16 04:00 10/15/16 03:59 09/18/16 08:55 Dextrose (Dextrose 50%) STAT PRN IV Hypoglycemia 09/15/16 14:30 7/16/17 14:29 Digoxin (Lanoxin) 0.125 mg DAILY ORAL 09/15/16 09:00 10/15/16 08:59 09/18/16 08:52 Dobutamine HCl/ Sodium Chloride (Dobutrex/Sodium Chloride) 250 ml @ 10.68 mls/ hr [id number] IV 09/17/16 17:00 10/17/16 16:59 09/17/16 16:52 Furosemide (Lasix) 40 mg EVERY 12 HOURS IV 09/14/16 21:00 10/14/16 20:59 09/18/16 08:52 Heparin Sodium (Porcine) (Heparin 5000 units/ml) 5,000 units EVERY 12 HOURS SUBQ 09/14/16 21:00 10/14/16 20:59 09/18/16 08:52 Insulin Aspart (NovoLOG) BEFORE MEALS AND HS SUBQ 09/14/16 21:00 10/14/16 20:59 09/18/16 11:24 Lorazepam (Ativan 2mg/ml 1ml) 0.5 mg Q4H PRN IV For Anxiety 09/14/16 22:30 09/21/16 22:29 09/18/16 10:55 Morphine Sulfate (Morphine Sulfate) 1 mg Q4H PRN IVP For Pain 09/14/16 22:45 09/21/16 22:44 09/17/16 22:42 Ondansetron HCl (Zofran) 4 mg Q6H PRN IVP Nausea & Vomiting 09/14/16 20:30 10/14/16 20:29 Pantoprazole (Protonix) 40 mg BID ORAL 09/15/16 09:00 10/15/16 08:59 09/18/16 08:53 Polyethylene Glycol (Miralax) 17 gm HSPRN PRN ORAL Constipation 09/14/16 21:00 10/14/16 20:59 09/17/16 11:12 Potassium Chloride (KCl 10% 40mEq Oral solution) 40 meq TWICE A DAY ORAL 09/18/16 09:00 10/18/16 08:59 09/18/16 08:51 Zolpidem Tartrate (Ambien) 5 mg HSPRN PRN ORAL Insomnia 09/14/16 21:00 10/14/16 20:59 09/15/16 22:10 ANGELA BERUMEN Sep 18, 2016 12:02
[2016-09-18] MEDS: Morphine Sulfate 2mg/ml Inj IVP PRN ×2 (14:38→20:47)
[2016-09-18] MEDS: NS IV SCH (15:46)
[2016-09-18] MEDS: DOBUTAMINE IV SCH (15:46)
[2016-09-18 16:00] VITALS: BP 101/67
--- NOTE | 2016-09-18 17:18 | Diagnostic Imaging Report ---
Indications: Pelvic pain, elevated CA 125 level Technique: Transabdominal real-time grayscale and duplex Doppler imaging of the pelvis was performed. Patient could not tolerate transvaginal imaging. Findings: Comparison: None Uterus measures 6.3 x 4.4 x 3.9cm. It demonstrates a 2 cm calcified mass in its anterior lower segment, and suggestion of a 3 cm circumscribed mass in the anterior fundus. 4 cm solid partially calcified mass resides along the left lateral margin of the uterus, extending into the left adnexal region.. The endometrial complex measures 8 mm in diameter. It is heterogeneous without discrete focal abnormality. Cervix not well demonstrated. No free fluid is present in the cul-de-sac. Right ovary not identified. No extra-ovarian abnormality is seen. Left ovary not identified. No extra-ovarian abnormality is seen aside from as described above. IMPRESSION: Multiple uterine masses most likely fibroids. Left adnexal mass of similar appearance most likely exophytic subserosal fibroid. Ovarian mass/neoplasm not excludable. Enlarged heterogeneous endometrial echo complex. Pathology including neoplasm not excludable. Nonvisualization of ovaries
[2016-09-18 20:00] VITALS: BP 110/66
--- NOTE | 2016-09-18 21:41 | Cardiology Progress Note ---
Assessment/Plan Assessment/Plan CHF systolic right sided ehart failure encephalopathy the patient is diuresing] will follow K level tomorrow Subjective Genitourinary: Denies: burning, discharge, flank pain, frequency, hematuria, incontinence, no symptoms, other, pain, urgency Subjective the patient reports feeling terrible and just about "to give up". She was more confused after morphine injection Objective Last 24 Hour Vital Signs Date Time Temp Pulse Resp B/P Pulse Ox O2 Delivery O2 Flow Rate FiO2 09/18/16 20:19 Nasal Cannula 2.0 28 09/18/16 20:19 99 Nasal Cannula 2.0 28 09/18/16 16:00 97.9 94 20 101/67 100 Nasal Cannula 2.0 09/18/16 15:35 86 09/18/16 11:35 97.9 88 19 112/59 100 Nasal Cannula 2.0 09/18/16 11:29 88 09/18/16 08:52 89 09/18/16 08:10 97.7 89 18 102/58 100 Nasal Cannula 2.0 09/18/16 07:58 79 09/18/16 07:27 Nasal Cannula 2.0 28 09/18/16 07:27 99 Nasal Cannula 2.0 28 09/18/16 04:02 86 09/18/16 04:00 97.2 86 20 92/54 100 Nasal Cannula 2.0 09/18/16 00:00 97.2 87 20 95/55 97 Nasal Cannula 2.0 09/17/16 23:48 94 General Appearance: severe distress, other - looks very ill, weak EENT: PERRL/EOMI, scleral icterus Neck: JVD Rhythm: Afib Cardiovascular: regular rhythm Respiratory/Chest: crackles/rales Abdomen: distended, other - liver is enlarged Extremities: pitting - mild Intake and Output 09/17/16 09/18/16 19:00 07:00 Intake Total 428.16 ml 228.16 ml Output Total 1100 ml 1400 ml Balance -671.84 ml -1171.84 ml Intake Oral 300 ml 100 ml IV Total 128.16 ml 128.16 ml Output Urine Total 1100 ml 1400 ml Laboratory Tests Test 09/18/16 04:00 White Blood Count 3.3 K/UL (4.8-10.8) L Red Blood Count 3.70 M/UL (4.20-5.40) L Hemoglobin 9.7 G/DL (12.0-16.0) L Hematocrit 30.5 % (37.0-47.0) L Mean Corpuscular Volume 82 FL (80-99) Mean Corpuscular Hemoglobin 26.1 PG (27.0-31.0) L Mean Corpuscular Hemoglobin Concent 31.7 G/DL (32.0-36.0) L Red Cell Distribution Width 17.2 % (11.6-14.8) H Platelet Count 319 K/UL (150-450) Mean Platelet Volume 6.2 FL (6.5-10.1) L Neutrophils (%) (Auto) % (45.0-75.0) Lymphocytes (%) (Auto) % (20.0-45.0) Monocytes (%) (Auto) % (1.0-10.0) Eosinophils (%) (Auto) % (0.0-3.0) Basophils (%) (Auto) % (0.0-2.0) Differential Total Cells Counted 100 Neutrophils % (Manual) 63 % (45-75) Lymphocytes % (Manual) 19 % (20-45) L Monocytes % (Manual) 16 % (1-10) H Eosinophils % (Manual) 1 % (0-3) Basophils % (Manual) 1 % (0-2) Band Neutrophils 0 % (0-8) Platelet Estimate Adequate Platelet Morphology Normal Hypochromasia 1+ Anisocytosis 1+ Sodium Level 135 mEQ/L (135-145) Potassium Level 3.5 mEQ/L (3.4-4.9) Chloride Level 96 mEQ/L (98-107) L Carbon Dioxide Level 33 mEQ/L (20-30) H Anion Gap 6 (5-15) Blood Urea Nitrogen 10 mg/dL (7-23) Creatinine 0.7 mg/dL (0.5-0.9) Estimat Glomerular Filtration Rate mL/min (>60) Glucose Level 97 mg/dL (74-106) Uric Acid 6.6 mg/dL (3.0-7.5) Calcium Level 7.8 mg/dL (8.6-10.2) L Phosphorus Level 3.5 mg/dL (2.5-4.8) Magnesium Level 1.7 mg/dL (1.7-2.5) Total Bilirubin 0.6 mg/dL (0.0-1.2) Direct Bilirubin 0.2 mg/dL (0.1-0.3) Aspartate Amino Transf (AST/SGOT) 16 U/L (5-40) Alanine Aminotransferase (ALT/SGPT) 8 U/L (3-33) Alkaline Phosphatase 67 U/L (35-104) C-Reactive Protein, Quantitative 0.4 mg/dL (< 0.5) Pro-B-Type Natriuretic Peptide 45811 pg/mL (0-125) H Total Protein 5.1 g/dL (6.6-8.7) L Albumin 2.3 g/dL (3.5-5.2) VINNIE LIRA Sep 18, 2016 21:41
[2016-09-19] VITALS: BP 112/56
[2016-09-19 04:20] VITALS: BP 99/65
[2016-09-19 04:51] LABS: MEAN CORPUSCULAR HEMOGLOBIN 25.9 PG (27.0-31.0); MEAN CORPUSCULAR HGB CONC 31.3 G/DL (32.0-36.0); MEAN CORPUSCULAR VOLUME 83 FL (80-99); MEAN PLATELET VOLUME 6.6 FL (6.5-10.1); PLATELET COUNT 313 K/UL (150-450); RED BLOOD COUNT 3.73 M/UL (4.20-5.40); RED CELL DISTRIBUTION WIDTH 17.9 % (11.6-14.8); WHITE BLOOD COUNT 3.4 K/UL (4.8-10.8)
[2016-09-19 05:19] LABS: ALANINE AMINOTRANSFERASE 7 U/L (3-33); ALBUMIN/GLOBULIN RATIO 0.7 (1.0-2.7); ANION GAP 10 (5-15); ASPARTATE AMINO TRANSFERASE 15 U/L (5-40); CALCIUM 7.9 mg/dL (8.6-10.2); CARBON DIOXIDE 33 mEQ/L (20-30); CHLORIDE 98 mEQ/L (98-107); CREATININE 0.6 mg/dL (0.5-0.9); HEMOLYSIS 1; POTASSIUM 3.7 mEQ/L (3.4-4.9); SODIUM 141 mEQ/L (135-145); TOTAL PROTEIN 5.3 g/dL (6.6-8.7)
[2016-09-19] MEDS: NovoLOG Insulin Flexpen SUBQ SCH ×4 (06:07→21:00)
[2016-09-19 08:00] VITALS: BP 100/60
[2016-09-19] MEDS: KCl 10% 40mEq/30ml liquid ORAL SCH ×2 (09:03→18:00)
[2016-09-19] MEDS: Digoxin 0.125mg tab ORAL SCH (09:04)
[2016-09-19] MEDS: Heparin 5000 units/ml inj SUBQ SCH ×2 (09:05→21:28)
[2016-09-19] MEDS: Dyna-Hex 2% Top Sol 8oz TOPIC SCH (09:05)
[2016-09-19] MEDS: NS IV SCH (09:26)
[2016-09-19] MEDS: DOBUTAMINE IV SCH (09:26)
--- NOTE | 2016-09-19 10:58 | General Progress Note ---
Assessment/Plan Status: stable - from renal stand point Status Narrative remains on dobutamin drip Assessment/Plan status: Proteinuria, likely Diabetic Nephropathy HypoAlbuminemia: Increase Loss vs Decrease production- UTI Anemia Failure to thrive / Dehydration Pacer severe cardiomyopathy Ej Fx 20% Low Ca , corrects with Low Alb Plan; optimize cardiac status- Anemia hauser- K supplement- as needed 24 H urine for protein- nominal monitor renal parameters gastric support- stop [facility]- 2D Echo : Low EjFx per orders Subjective ROS Limited/Unobtainable: No Constitutional: Reports: malaise, weakness Allergies: Coded Allergies: PENICILLIN (Verified Allergy, Unknown, Rash, 03/30/15) Objective Last 24 Hour Vital Signs Date Time Temp Pulse Resp B/P Pulse Ox O2 Delivery O2 Flow Rate FiO2 09/19/16 09:04 98 09/19/16 08:06 94 09/19/16 08:00 97.8 98 21 100/60 98 Room Air 09/19/16 04:20 97.7 91 20 99/65 98 Nasal Cannula 2.0 09/19/16 04:00 94 09/19/16 00:00 97.3 98 20 112/56 99 Nasal Cannula 2.0 09/18/16 23:42 99 09/18/16 20:19 Nasal Cannula 2.0 28 09/18/16 20:19 99 Nasal Cannula 2.0 28 09/18/16 20:00 101 09/18/16 20:00 97.5 97 20 110/66 98 Nasal Cannula 2.0 09/18/16 16:00 97.9 94 20 101/67 100 Nasal Cannula 2.0 09/18/16 15:35 86 09/18/16 11:35 97.9 88 19 112/59 100 Nasal Cannula 2.0 09/18/16 11:29 88 Intake and Output 09/18/16 09/19/16 19:00 07:00 Intake Total 128.16 ml 217.48 ml Output Total 850 ml 1400 ml Balance -721.84 ml -1182.52 ml Intake Oral 100 ml IV Total 128.16 ml 117.48 ml Output Urine Total 850 ml 1400 ml # Bowel Movements 1 Laboratory Tests 09/19/16 04:00: White Blood Count 3.4L, Red Blood Count 3.73L, Hemoglobin 9.6L, Hematocrit 30.8L , Mean Corpuscular Volume 83, Mean Corpuscular Hemoglobin 25.9L, Mean Corpuscular Hemoglobin Concent 31.3L, Red Cell Distribution Width 17.9H, Platelet Count 313, Mean Platelet Volume 6.6, Neutrophils (%) (Auto) , Lymphocytes (%) (Auto) , Monocytes (%) (Auto) , Eosinophils (%) (Auto) , Basophils (%) (Auto) , Sodium Level 141, Potassium Level 3.7, Chloride Level 98 , Carbon Dioxide Level 33H, Anion Gap 10, Blood Urea Nitrogen 10, Creatinine 0.6 , Estimat Glomerular Filtration Rate , Glucose Level 73L, Calcium Level 7.9L, Total Bilirubin 0.5, Aspartate Amino Transf (AST/SGOT) 15, Alanine Aminotransferase (ALT/SGPT) 7, Alkaline Phosphatase 61, Pro-B-Type Natriuretic Peptide 91836H, Total Protein 5.3L, Albumin 2.2L, Globulin 3.1, Albumin/ Globulin Ratio 0.7L Height (Feet): 5 Height (Inches): 4.00 Weight (Pounds): 155 General Appearance: no apparent distress Cardiovascular: normal rate Respiratory/Chest: decreased breath sounds Abdomen: distended Objective no change in PE FAUZIA MAYA Sep 19, 2016 10:58
[2016-09-19 12:00] VITALS: BP 99/57
--- NOTE | 2016-09-19 13:37 | Diagnostic Imaging Report ---
Indication: DYSPNEA Technique: One view of the chest Comparison: 09/15/2016 Findings: Small right pleural effusion, diffuse left retrocardiac opacification with air bronchograms persists. Left chest biventricular AICD, orphaned lead tip are again demonstrated. Right arm PICC remains. Findings are overall unchanged Impression: Unchanged, over 3 days, findings as above.
[2016-09-19 16:00] VITALS: BP 94/52
--- NOTE | 2016-09-19 18:10 | Pulmonology Progress Note ---
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 dc planning in progress Subjective ROS Limited/Unobtainable: No Interval Events: no new complains Allergies: Coded Allergies: PENICILLIN (Verified Allergy, Unknown, Rash, 03/30/15) Objective Last 24 Hour Vital Signs Date Time Temp Pulse Resp B/P Pulse Ox O2 Delivery O2 Flow Rate FiO2 09/19/16 16:00 98.1 89 18 94/52 100 Nasal Cannula 2.0 09/19/16 15:15 89 09/19/16 12:00 97.8 92 21 99/57 100 Nasal Cannula 2.0 09/19/16 11:34 91 09/19/16 09:04 98 09/19/16 08:06 94 09/19/16 08:00 97.8 98 21 100/60 98 Room Air 09/19/16 04:20 97.7 91 20 99/65 98 Nasal Cannula 2.0 09/19/16 04:00 94 09/19/16 00:00 97.3 98 20 112/56 99 Nasal Cannula 2.0 09/18/16 23:42 99 09/18/16 20:19 Nasal Cannula 2.0 28 09/18/16 20:19 99 Nasal Cannula 2.0 28 09/18/16 20:00 101 09/18/16 20:00 97.5 97 20 110/66 98 Nasal Cannula 2.0 Intake and Output 09/18/16 09/19/16 19:00 07:00 Intake Total 128.16 ml 217.48 ml Output Total 850 ml 1400 ml Balance -721.84 ml -1182.52 ml Intake Oral 100 ml IV Total 128.16 ml 117.48 ml Output Urine Total 850 ml 1400 ml # Bowel Movements 1 Objective General Appearance: WD/WN Lines, tubes and drains: peripheral, HEENT: normocephalic, atraumatic Neck: non-tender, normal alignment Respiratory/Chest: chest wall non-tender, rhonchi Cardiovascular/Chest: normal peripheral pulses, normal rate Abdomen: normal bowel sounds Genitourinary/Rectal: normal genital exam Extremities: normal range of motion, normal inspection Skin Exam: normal pigmentation Laboratory Tests 09/19/16 04:00: White Blood Count 3.4L, Red Blood Count 3.73L, Hemoglobin 9.6L, Hematocrit 30.8L , Mean Corpuscular Volume 83, Mean Corpuscular Hemoglobin 25.9L, Mean Corpuscular Hemoglobin Concent 31.3L, Red Cell Distribution Width 17.9H, Platelet Count 313, Mean Platelet Volume 6.6, Neutrophils (%) (Auto) , Lymphocytes (%) (Auto) , Monocytes (%) (Auto) , Eosinophils (%) (Auto) , Basophils (%) (Auto) , Sodium Level 141, Potassium Level 3.7, Chloride Level 98 , Carbon Dioxide Level 33H, Anion Gap 10, Blood Urea Nitrogen 10, Creatinine 0.6 , Estimat Glomerular Filtration Rate , Glucose Level 73L, Calcium Level 7.9L, Total Bilirubin 0.5, Aspartate Amino Transf (AST/SGOT) 15, Alanine Aminotransferase (ALT/SGPT) 7, Alkaline Phosphatase 61, Pro-B-Type Natriuretic Peptide 26754I, Total Protein 5.3L, Albumin 2.2L, Globulin 3.1, Albumin/ Globulin Ratio 0.7L Current Medications Medications (Trade) Dose Ordered Sig/Michael Route PRN Reason Start Time Stop Time Status Last Admin Dose Admin Acetaminophen (Tylenol) 650 mg Q4H PRN ORAL fever 09/14/16 22:30 10/14/16 22:29 Chlorhexidine Gluconate (Jessy-Hex 2%) 1 applic DAILY TOPIC 09/15/16 04:00 10/15/16 03:59 09/19/16 09:05 Dextrose (Dextrose 50%) STAT PRN IV Hypoglycemia 09/15/16 14:30 10/15/16 14:29 Digoxin (Lanoxin) 0.125 mg DAILY ORAL 09/15/16 09:00 10/15/16 08:59 09/19/16 09:04 Dobutamine HCl/ Sodium Chloride (Dobutrex/Sodium Chloride) 250 ml @ 10.54 mls/ hr [id number] IV 09/19/16 09:00 10/19/16 08:59 09/19/16 09:26 Furosemide (Lasix) 40 mg EVERY 12 HOURS IV 09/14/16 21:00 10/14/16 20:59 09/19/16 09:04 Heparin Sodium (Porcine) (Heparin 5000 units/ml) 5,000 units EVERY 12 HOURS SUBQ 09/14/16 21:00 10/14/16 20:59 09/19/16 09:05 Insulin Aspart (NovoLOG) BEFORE MEALS AND HS SUBQ 09/14/16 21:00 10/14/16 20:59 09/19/16 16:31 Lorazepam (Ativan 2mg/ml 1ml) 0.5 mg Q4H PRN IV For Anxiety 09/14/16 22:30 09/21/16 22:29 09/18/16 10:55 Morphine Sulfate (Morphine Sulfate) 1 mg Q4H PRN IVP For Pain 09/14/16 22:45 09/21/16 22:44 09/18/16 20:47 Ondansetron HCl (Zofran) 4 mg Q6H PRN IVP Nausea & Vomiting 09/14/16 20:30 10/14/16 20:29 Pantoprazole (Protonix) 40 mg BID ORAL 09/15/16 09:00 10/15/16 08:59 09/19/16 09:03 Polyethylene Glycol (Miralax) 17 gm HSPRN PRN ORAL Constipation 09/14/16 21:00 10/14/16 20:59 09/17/16 11:12 Potassium Chloride 40 meq 40 meq TWICE A DAY ORAL 09/18/16 09:00 10/18/16 08:59 09/19/16 09:03 Zolpidem Tartrate (Ambien) 5 mg HSPRN PRN ORAL Insomnia 09/14/16 21:00 10/14/16 20:59 09/15/16 22:10 ANGELA BERUMEN Sep 19, 2016 18:10
[2016-09-19 20:00] VITALS: BP 101/58
[2016-09-20] VITALS: BP 93/52
[2016-09-20 04:00] VITALS: BP 96/61
[2016-09-20 06:08] LABS: BASOPHILS % (AUTO) 3.1 % (0.0-2.0); EOSINOPHILS % (AUTO) 1.2 % (0.0-3.0); LYMPHOCYTES % (AUTO) 21.4 % (20.0-45.0); MEAN CORPUSCULAR HEMOGLOBIN 26.3 PG (27.0-31.0); MEAN CORPUSCULAR HGB CONC 32.1 G/DL (32.0-36.0); MEAN CORPUSCULAR VOLUME 82 FL (80-99); MEAN PLATELET VOLUME 6.6 FL (6.5-10.1); MONOCYTES % (AUTO) 18.7 % (1.0-10.0); NEUTROPHILS % (AUTO) 55.7 % (45.0-75.0); PLATELET COUNT 279 K/UL (150-450); RED BLOOD COUNT 3.64 M/UL (4.20-5.40); RED CELL DISTRIBUTION WIDTH 17.9 % (11.6-14.8); WHITE BLOOD COUNT 4.1 K/UL (4.8-10.8)
[2016-09-20 06:23] LABS: ALANINE AMINOTRANSFERASE 6 U/L (3-33); ALBUMIN/GLOBULIN RATIO 0.6 (1.0-2.7); ANION GAP 11 (5-15); ASPARTATE AMINO TRANSFERASE 15 U/L (5-40); CALCIUM 7.9 mg/dL (8.6-10.2); CARBON DIOXIDE 30 mEQ/L (20-30); CHLORIDE 97 mEQ/L (98-107); CREATININE 0.6 mg/dL (0.5-0.9); HEMOLYSIS 1; POTASSIUM 3.8 mEQ/L (3.4-4.9); SODIUM 138 mEQ/L (135-145); TOTAL PROTEIN 5.3 g/dL (6.6-8.7)
[2016-09-20] MEDS: NovoLOG Insulin Flexpen SUBQ SCH ×4 (06:30→21:00)
[2016-09-20 08:00] VITALS: BP 87/46
[2016-09-20] MEDS: KCl 10% 40mEq/30ml liquid ORAL SCH ×2 (08:37→17:06)
[2016-09-20] MEDS: Dyna-Hex 2% Top Sol 8oz TOPIC SCH (08:37)
[2016-09-20] MEDS: Digoxin 0.125mg tab ORAL SCH (08:38)
[2016-09-20] MEDS: Heparin 5000 units/ml inj SUBQ SCH ×2 (08:46→22:26)
[2016-09-20] MEDS: NS IV SCH (08:53)
[2016-09-20] MEDS: DOBUTAMINE IV SCH (08:53)
--- NOTE | 2016-09-20 11:38 | Pulmonology Progress Note ---
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 dc planning in progress increase lasix to TID, check electroltyes in am Subjective ROS Limited/Unobtainable: No Constitutional: Reports: no symptoms HEENT: Repors: no symptoms Allergies: Coded Allergies: PENICILLIN (Verified Allergy, Unknown, Rash, 03/30/15) Objective Last 24 Hour Vital Signs Date Time Temp Pulse Resp B/P Pulse Ox O2 Delivery O2 Flow Rate FiO2 09/20/16 08:38 88 09/20/16 08:00 97.7 85 18 87/46 97 Nasal Cannula 2.0 09/20/16 07:54 Nasal Cannula 2.0 28 09/20/16 07:54 99 Nasal Cannula 2.0 28 09/20/16 04:00 97.7 94 18 96/61 99 Room Air 09/20/16 04:00 93 09/20/16 00:00 81 09/20/16 00:00 97.3 86 18 93/52 100 Room Air 09/19/16 20:00 96 09/19/16 20:00 98.1 91 20 101/58 Nasal Cannula 2.0 09/19/16 19:30 Nasal Cannula 2.0 28 09/19/16 19:00 99 Nasal Cannula 2.0 28 09/19/16 16:00 98.1 89 18 94/52 100 Nasal Cannula 2.0 09/19/16 15:15 89 09/19/16 12:00 97.8 92 21 99/57 100 Nasal Cannula 2.0 Intake and Output 09/19/16 09/20/16 19:00 07:00 Intake Total 360.67 ml 200 ml Output Total 700 ml 550 ml Balance -339.33 ml -350 ml Intake Oral 240 ml 200 ml IV Total 120.67 ml Output Urine Total 700 ml 550 ml # Bowel Movements 4 3 Objective General Appearance: WD/WN Lines, tubes and drains: peripheral, HEENT: normocephalic, atraumatic Neck: non-tender, normal alignment Respiratory/Chest: chest wall non-tender, rhonchi Cardiovascular/Chest: normal peripheral pulses, normal rate Abdomen: normal bowel sounds Genitourinary/Rectal: normal genital exam Extremities: normal range of motion, normal inspection Skin Exam: normal pigmentation Laboratory Tests 09/20/16 04:00: White Blood Count 4.1L, Red Blood Count 3.64L, Hemoglobin 9.6L, Hematocrit 29.9L , Mean Corpuscular Volume 82, Mean Corpuscular Hemoglobin 26.3L, Mean Corpuscular Hemoglobin Concent 32.1, Red Cell Distribution Width 17.9H, Platelet Count 279, Mean Platelet Volume 6.6, Neutrophils (%) (Auto) 55.7, Lymphocytes (%) (Auto) 21.4, Monocytes (%) (Auto) 18.7H, Eosinophils (%) (Auto) 1.2, Basophils (%) (Auto) 3.1H, Sodium Level 138, Potassium Level 3.8, Chloride Level 97L, Carbon Dioxide Level 30, Anion Gap 11, Blood Urea Nitrogen 11, Creatinine 0.6, Estimat Glomerular Filtration Rate , Glucose Level 71L, Calcium Level 7.9L, Total Bilirubin 0.6, Aspartate Amino Transf (AST/SGOT) 15, Alanine Aminotransferase (ALT/SGPT) 6, Alkaline Phosphatase 59, Pro-B-Type Natriuretic Peptide 9910H, Total Protein 5.3L, Albumin 2.1L, Globulin 3.2, Albumin/Globulin Ratio 0.6L Current Medications Medications (Trade) Dose Ordered Sig/Michael Route PRN Reason Start Time Stop Time Status Last Admin Dose Admin Acetaminophen (Tylenol) 650 mg Q4H PRN ORAL fever 09/14/16 22:30 10/14/16 22:29 Chlorhexidine Gluconate (Jessy-Hex 2%) 1 applic DAILY TOPIC 09/15/16 04:00 10/15/16 03:59 09/20/16 08:37 Dextrose (Dextrose 50%) STAT PRN IV Hypoglycemia 09/15/16 14:30 10/15/16 14:29 Digoxin (Lanoxin) 0.125 mg DAILY ORAL 09/15/16 09:00 10/15/16 08:59 09/20/16 08:38 Dobutamine HCl/ Sodium Chloride (Dobutrex/Sodium Chloride) 250 ml @ 10.54 mls/ hr [id number] IV 09/19/16 09:00 10/19/16 08:59 09/20/16 08:53 Furosemide (Lasix) 40 mg EVERY 12 HOURS IV 09/14/16 21:00 10/14/16 20:59 09/19/16 21:25 Heparin Sodium (Porcine) (Heparin 5000 units/ml) 5,000 units EVERY 12 HOURS SUBQ 09/14/16 21:00 10/14/16 20:59 09/20/16 08:46 Insulin Aspart (NovoLOG) BEFORE MEALS AND HS SUBQ 09/14/16 21:00 10/14/16 20:59 09/19/16 16:31 Lorazepam (Ativan 2mg/ml 1ml) 0.5 mg Q4H PRN IV For Anxiety 09/14/16 22:30 09/21/16 22:29 09/18/16 10:55 Morphine Sulfate (Morphine Sulfate) 1 mg Q4H PRN IVP For Pain 09/14/16 22:45 09/21/16 22:44 09/18/16 20:47 Ondansetron HCl (Zofran) 4 mg Q6H PRN IVP Nausea & Vomiting 09/14/16 20:30 10/14/16 20:29 Pantoprazole (Protonix) 40 mg BID ORAL 09/15/16 09:00 10/15/16 08:59 09/20/16 08:40 Polyethylene Glycol (Miralax) 17 gm HSPRN PRN ORAL Constipation 09/14/16 21:00 10/14/16 20:59 09/17/16 11:12 Potassium Chloride 40 meq 40 meq TWICE A DAY ORAL 09/18/16 09:00 10/18/16 08:59 09/20/16 08:37 Zolpidem Tartrate (Ambien) 5 mg HSPRN PRN ORAL Insomnia 09/14/16 21:00 10/14/16 20:59 09/15/16 22:10 ANGELA BERUMEN Sep 20, 2016 11:38
--- NOTE | 2016-09-20 11:59 | General Progress Note ---
Assessment/Plan Status: stable Status Narrative no change from renal stand point Assessment/Plan status: Proteinuria, likely Diabetic Nephropathy HypoAlbuminemia: Increase Loss vs Decrease production- UTI Anemia Failure to thrive / Dehydration Pacer severe cardiomyopathy Ej Fx 20% Low Ca , corrects with Low Alb Plan; optimize cardiac status- Anemia hauser- K supplement- as needed 24 H urine for protein- nominal monitor renal parameters gastric support- stop [facility]- 2D Echo : Low EjFx per orders Subjective ROS Limited/Unobtainable: No Constitutional: Reports: malaise Allergies: Coded Allergies: PENICILLIN (Verified Allergy, Unknown, Rash, 03/30/15) Objective Last 24 Hour Vital Signs Date Time Temp Pulse Resp B/P Pulse Ox O2 Delivery O2 Flow Rate FiO2 09/20/16 08:38 88 09/20/16 08:00 97.7 85 18 87/46 97 Nasal Cannula 2.0 09/20/16 07:54 Nasal Cannula 2.0 28 09/20/16 07:54 99 Nasal Cannula 2.0 28 09/20/16 04:00 97.7 94 18 96/61 99 Room Air 09/20/16 04:00 93 09/20/16 00:00 81 09/20/16 00:00 97.3 86 18 93/52 100 Room Air 09/19/16 20:00 96 09/19/16 20:00 98.1 91 20 101/58 Nasal Cannula 2.0 09/19/16 19:30 Nasal Cannula 2.0 28 09/19/16 19:00 99 Nasal Cannula 2.0 28 09/19/16 16:00 98.1 89 18 94/52 100 Nasal Cannula 2.0 09/19/16 15:15 89 09/19/16 12:00 97.8 92 21 99/57 100 Nasal Cannula 2.0 Intake and Output 09/19/16 09/20/16 19:00 07:00 Intake Total 360.67 ml 200 ml Output Total 700 ml 550 ml Balance -339.33 ml -350 ml Intake Oral 240 ml 200 ml IV Total 120.67 ml Output Urine Total 700 ml 550 ml # Bowel Movements 4 3 Laboratory Tests 09/20/16 04:00: White Blood Count 4.1L, Red Blood Count 3.64L, Hemoglobin 9.6L, Hematocrit 29.9L , Mean Corpuscular Volume 82, Mean Corpuscular Hemoglobin 26.3L, Mean Corpuscular Hemoglobin Concent 32.1, Red Cell Distribution Width 17.9H, Platelet Count 279, Mean Platelet Volume 6.6, Neutrophils (%) (Auto) 55.7, Lymphocytes (%) (Auto) 21.4, Monocytes (%) (Auto) 18.7H, Eosinophils (%) (Auto) 1.2, Basophils (%) (Auto) 3.1H, Sodium Level 138, Potassium Level 3.8, Chloride Level 97L, Carbon Dioxide Level 30, Anion Gap 11, Blood Urea Nitrogen 11, Creatinine 0.6, Estimat Glomerular Filtration Rate , Glucose Level 71L, Calcium Level 7.9L, Total Bilirubin 0.6, Aspartate Amino Transf (AST/SGOT) 15, Alanine Aminotransferase (ALT/SGPT) 6, Alkaline Phosphatase 59, Pro-B-Type Natriuretic Peptide 9910H, Total Protein 5.3L, Albumin 2.1L, Globulin 3.2, Albumin/Globulin Ratio 0.6L Height (Feet): 5 Height (Inches): 4.00 Weight (Pounds): 164 General Appearance: no apparent distress Objective no change in PE FAUZIA MAYA Sep 20, 2016 11:59
[2016-09-20 12:00] VITALS: BP 96/60
[2016-09-20 16:00] VITALS: BP 96/56
[2016-09-20 19:59] VITALS: BP 90/53
--- NOTE | 2016-09-20 21:24 | Cardiology Progress Note ---
Assessment/Plan Problem List: (1) ICD (implantable cardioverter-defibrillator) in place (2) Hypotension (3) Shock (4) Renal insufficiency (5) Diabetes mellitus (6) Dehydration (7) EF< 20 Status: stable, not improved Status Narrative Mrs. Mejia has MR, s/p mitraclip procedure, dilated cm, w/ EF < 20%, and is s/ p bivent ICD revision recently She continues to diurese on IV lasix as well as low dose dobutamine. MS is unchanged. Assessment/Plan Continue gradual diuresis w/ iv lasix, w/ dobutamine and digoxin for inotropic support. BNP improving, but still significantly elevated. Subjective ROS Limited/Unobtainable: Yes Subjective Ms. Mejia is alert/ confused. Sitter at bedside. No respiratory distress Objective Last 24 Hour Vital Signs Date Time Temp Pulse Resp B/P Pulse Ox O2 Delivery O2 Flow Rate FiO2 09/20/16 19:59 98.1 84 20 90/53 100 Nasal Cannula 2.0 09/20/16 16:22 88 09/20/16 16:00 97.3 71 20 96/56 100 Nasal Cannula 2.0 09/20/16 12:00 97.5 97 20 96/60 100 Nasal Cannula 2.0 09/20/16 11:54 94 09/20/16 08:38 88 09/20/16 08:00 97.7 85 18 87/46 97 Nasal Cannula 2.0 09/20/16 07:54 Nasal Cannula 2.0 28 09/20/16 07:54 99 Nasal Cannula 2.0 28 09/20/16 04:00 97.7 94 18 96/61 99 Room Air 09/20/16 04:00 93 09/20/16 00:00 81 09/20/16 00:00 97.3 86 18 93/52 100 Room Air General Appearance: WD/WN, alert, mild distress EENT: PERRL/EOMI Neck: JVD, other - jvp at angle of jaw Rhythm: NSR Cardiovascular: normal rate, gallop/S3 Respiratory/Chest: lungs clear, other - clear anteriorly Extremities: moderate edema - hard skin over distal LEs Intake and Output 09/19/16 09/20/16 19:00 07:00 Intake Total 360.67 ml 200 ml Output Total 700 ml 550 ml Balance -339.33 ml -350 ml Intake Oral 240 ml 200 ml IV Total 120.67 ml Output Urine Total 700 ml 550 ml # Bowel Movements 4 3 Laboratory Tests Test 09/20/16 04:00 White Blood Count 4.1 K/UL (4.8-10.8) L Red Blood Count 3.64 M/UL (4.20-5.40) L Hemoglobin 9.6 G/DL (12.0-16.0) L Hematocrit 29.9 % (37.0-47.0) L Mean Corpuscular Volume 82 FL (80-99) Mean Corpuscular Hemoglobin 26.3 PG (27.0-31.0) L Mean Corpuscular Hemoglobin Concent 32.1 G/DL (32.0-36.0) Red Cell Distribution Width 17.9 % (11.6-14.8) H Platelet Count 279 K/UL (150-450) Mean Platelet Volume 6.6 FL (6.5-10.1) Neutrophils (%) (Auto) 55.7 % (45.0-75.0) Lymphocytes (%) (Auto) 21.4 % (20.0-45.0) Monocytes (%) (Auto) 18.7 % (1.0-10.0) H Eosinophils (%) (Auto) 1.2 % (0.0-3.0) Basophils (%) (Auto) 3.1 % (0.0-2.0) H Sodium Level 138 mEQ/L (135-145) Potassium Level 3.8 mEQ/L (3.4-4.9) Chloride Level 97 mEQ/L (98-107) L Carbon Dioxide Level 30 mEQ/L (20-30) Anion Gap 11 (5-15) Blood Urea Nitrogen 11 mg/dL (7-23) Creatinine 0.6 mg/dL (0.5-0.9) Estimat Glomerular Filtration Rate mL/min (>60) Glucose Level 71 mg/dL (74-106) L Calcium Level 7.9 mg/dL (8.6-10.2) L Total Bilirubin 0.6 mg/dL (0.0-1.2) Aspartate Amino Transf (AST/SGOT) 15 U/L (5-40) Alanine Aminotransferase (ALT/SGPT) 6 U/L (3-33) Alkaline Phosphatase 59 U/L (35-104) Pro-B-Type Natriuretic Peptide 9910 pg/mL (0-125) H Total Protein 5.3 g/dL (6.6-8.7) L Albumin 2.1 g/dL (3.5-5.2) L Globulin 3.2 g/dL Albumin/Globulin Ratio 0.6 (1.0-2.7) L AUGIE FONSECA Sep 20, 2016 21:24
--- NOTE | 2016-09-20 22:14 | General Progress Note ---
Assessment/Plan Assessment/Plan cardiomyopathy with EF less than 20% AICD renal failure diabetes severe protein calorie malnutrition ho breast cancer uternine/ovarian mass ho recetnl cellulitis ho noncompliace failure to thrive diuresis monitor renal parameters ss insulin coverage encourage po supplements silver cleaner eval pending dvt and ulcer prohylaxis PT OOB likely needs placement Subjective Allergies: Coded Allergies: PENICILLIN (Verified Allergy, Unknown, Rash, 03/30/15) Subjective known to me from previous admissions and office above reviewed dw Dr Kc Objective Last 24 Hour Vital Signs Date Time Temp Pulse Resp B/P Pulse Ox O2 Delivery O2 Flow Rate FiO2 09/20/16 19:59 98.1 84 20 90/53 100 Nasal Cannula 2.0 09/20/16 16:22 88 09/20/16 16:00 97.3 71 20 96/56 100 Nasal Cannula 2.0 09/20/16 12:00 97.5 97 20 96/60 100 Nasal Cannula 2.0 09/20/16 11:54 94 09/20/16 08:38 88 09/20/16 08:00 97.7 85 18 87/46 97 Nasal Cannula 2.0 09/20/16 07:54 Nasal Cannula 2.0 28 09/20/16 07:54 99 Nasal Cannula 2.0 28 09/20/16 04:00 97.7 94 18 96/61 99 Room Air 09/20/16 04:00 93 09/20/16 00:00 81 09/20/16 00:00 97.3 86 18 93/52 100 Room Air Intake and Output 09/19/16 09/20/16 19:00 07:00 Intake Total 360.67 ml 200 ml Output Total 700 ml 550 ml Balance -339.33 ml -350 ml Intake Oral 240 ml 200 ml IV Total 120.67 ml Output Urine Total 700 ml 550 ml # Bowel Movements 4 3 Laboratory Tests 09/20/16 04:00: White Blood Count 4.1L, Red Blood Count 3.64L, Hemoglobin 9.6L, Hematocrit 29.9L , Mean Corpuscular Volume 82, Mean Corpuscular Hemoglobin 26.3L, Mean Corpuscular Hemoglobin Concent 32.1, Red Cell Distribution Width 17.9H, Platelet Count 279, Mean Platelet Volume 6.6, Neutrophils (%) (Auto) 55.7, Lymphocytes (%) (Auto) 21.4, Monocytes (%) (Auto) 18.7H, Eosinophils (%) (Auto) 1.2, Basophils (%) (Auto) 3.1H, Sodium Level 138, Potassium Level 3.8, Chloride Level 97L, Carbon Dioxide Level 30, Anion Gap 11, Blood Urea Nitrogen 11, Creatinine 0.6, Estimat Glomerular Filtration Rate , Glucose Level 71L, Calcium Level 7.9L, Total Bilirubin 0.6, Aspartate Amino Transf (AST/SGOT) 15, Alanine Aminotransferase (ALT/SGPT) 6, Alkaline Phosphatase 59, Pro-B-Type Natriuretic Peptide 9910H, Total Protein 5.3L, Albumin 2.1L, Globulin 3.2, Albumin/Globulin Ratio 0.6L Height (Feet): 5 Height (Inches): 4.00 Weight (Pounds): 164 Neck: non-tender Cardiovascular: normal rate Respiratory/Chest: crackles/rales Abdomen: soft Objective pos edema bilaterlly BLANCA GORDILLO Sep 20, 2016 22:14
[2016-09-21] VITALS: BP 90/51
[2016-09-21 03:59] VITALS: BP 104/51
[2016-09-21 05:59] LABS: BASOPHILS % (AUTO) 3.5 % (0.0-2.0); EOSINOPHILS % (AUTO) 1.5 % (0.0-3.0); LYMPHOCYTES % (AUTO) 23.5 % (20.0-45.0); MEAN CORPUSCULAR HEMOGLOBIN 27.5 PG (27.0-31.0); MEAN CORPUSCULAR HGB CONC 32.7 G/DL (32.0-36.0); MEAN CORPUSCULAR VOLUME 84 FL (80-99); MEAN PLATELET VOLUME 6.2 FL (6.5-10.1); MONOCYTES % (AUTO) 15.1 % (1.0-10.0); NEUTROPHILS % (AUTO) 56.3 % (45.0-75.0); PLATELET COUNT 309 K/UL (150-450); RED CELL DISTRIBUTION WIDTH 18.1 % (11.6-14.8); WHITE BLOOD COUNT 4.6 K/UL (4.8-10.8)
[2016-09-21 06:17] LABS: ALANINE AMINOTRANSFERASE 7 U/L (3-33); ALBUMIN/GLOBULIN RATIO 0.7 (1.0-2.7); ANION GAP 9 (5-15); ASPARTATE AMINO TRANSFERASE 15 U/L (5-40); CALCIUM 7.8 mg/dL (8.6-10.2); CARBON DIOXIDE 30 mEQ/L (20-30); CHLORIDE 97 mEQ/L (98-107); CREATININE 0.8 mg/dL (0.5-0.9); HEMOLYSIS 2; MAGNESIUM 1.7 mg/dL (1.7-2.5); PHOSPHORUS 3.2 mg/dL (2.5-4.8); POTASSIUM 4.3 mEQ/L (3.4-4.9); SODIUM 136 mEQ/L (135-145); TOTAL PROTEIN 5.2 g/dL (6.6-8.7)
[2016-09-21] MEDS: NovoLOG Insulin Flexpen SUBQ SCH ×4 (06:29→21:21)
[2016-09-21 08:00] VITALS: BP 90/49
[2016-09-21] MEDS: KCl 10% 40mEq/30ml liquid ORAL SCH ×2 (08:20→17:32)
[2016-09-21] MEDS: Heparin 5000 units/ml inj SUBQ SCH ×2 (08:23→21:07)
[2016-09-21] MEDS: Digoxin 0.125mg tab ORAL SCH (08:24)
[2016-09-21] MEDS: Dyna-Hex 2% Top Sol 8oz TOPIC SCH (08:24)
[2016-09-21] MEDS: DOBUTAMINE IV SCH (09:15)
[2016-09-21] MEDS: NS IV SCH (09:15)
--- NOTE | 2016-09-21 11:28 | General Progress Note ---
Assessment/Plan Status: stable - from renal stand Assessment/Plan status: Proteinuria, likely Diabetic Nephropathy HypoAlbuminemia: Increase Loss vs Decrease production- UTI Anemia Failure to thrive / Dehydration Pacer severe cardiomyopathy Ej Fx 20% Low Ca , corrects with Low Alb Plan; ? DC planning?? Optimize cardiac status- Anemia hauser- K supplement- as needed 24 H urine for protein- nominal monitor renal parameters gastric support- stop [facility]- 2D Echo : Low EjFx per orders Subjective ROS Limited/Unobtainable: No Constitutional: Reports: malaise, weakness Allergies: Coded Allergies: PENICILLIN (Verified Allergy, Unknown, Rash, 03/30/15) Objective Last 24 Hour Vital Signs Date Time Temp Pulse Resp B/P Pulse Ox O2 Delivery O2 Flow Rate FiO2 09/21/16 08:24 83 09/21/16 08:00 97.3 83 20 90/49 100 Nasal Cannula 2.5 09/21/16 07:30 89 09/21/16 04:00 87 09/21/16 03:59 98.1 89 18 104/51 100 Nasal Cannula 2.0 09/21/16 00:00 92 09/21/16 00:00 98.6 82 18 90/51 100 Nasal Cannula 2.0 09/20/16 20:16 99 Nasal Cannula 2.0 28 09/20/16 20:16 Nasal Cannula 2.0 28 09/20/16 20:00 83 09/20/16 19:59 98.1 84 20 90/53 100 Nasal Cannula 2.0 09/20/16 16:22 88 09/20/16 16:00 97.3 71 20 96/56 100 Nasal Cannula 2.0 09/20/16 12:00 97.5 97 20 96/60 100 Nasal Cannula 2.0 09/20/16 11:54 94 Intake and Output 09/20/16 09/21/16 19:00 07:00 Intake Total 345.40 ml 326.48 ml Output Total 1350 ml 750 ml Balance -1004.60 ml -423.52 ml Intake Oral 240 ml 200 ml IV Total 105.40 ml 126.48 ml Output Urine Total 1350 ml 750 ml # Bowel Movements 2 1 Laboratory Tests 09/21/16 05:00: White Blood Count 4.6L, Red Blood Count 3.60L, Hemoglobin 9.9L, Hematocrit 30.2L , Mean Corpuscular Volume 84, Mean Corpuscular Hemoglobin 27.5, Mean Corpuscular Hemoglobin Concent 32.7, Red Cell Distribution Width 18.1H, Platelet Count 309, Mean Platelet Volume 6.2L, Neutrophils (%) (Auto) 56.3, Lymphocytes (%) (Auto) 23.5, Monocytes (%) (Auto) 15.1H, Eosinophils (%) (Auto) 1.5, Basophils (%) (Auto) 3.5H, Sodium Level 136, Potassium Level 4.3, Chloride Level 97L, Carbon Dioxide Level 30, Anion Gap 9, Blood Urea Nitrogen 13, Creatinine 0.8, Estimat Glomerular Filtration Rate , Glucose Level 76, Calcium Level 7.8L, Phosphorus Level 3.2, Magnesium Level 1.7, Total Bilirubin 0.5, Aspartate Amino Transf (AST/SGOT) 15, Alanine Aminotransferase (ALT/SGPT) 7, Alkaline Phosphatase 61, Total Protein 5.2L, Albumin 2.2L, Globulin 3.0, Albumin /Globulin Ratio 0.7L Height (Feet): 5 Height (Inches): 4.00 Weight (Pounds): 164 General Appearance: no apparent distress Objective no change in PE FAUZIA MAYA Sep 21, 2016 11:28
[2016-09-21 12:00] VITALS: BP 106/47
--- NOTE | 2016-09-21 12:05 | Pulmonology Progress Note ---
Assessment/Plan Problems: (1) Anasarca (2) Pulmonary edema (3) Renal insufficiency (4) EF< 20 (5) uterine and ovarian mass (6) increased tumor markers (7) Protein-calorie malnutrition, severe (8) ICD (implantable cardioverter-defibrillator) in place (9) Impaired mobility and ADLs (10) Diabetes mellitus (11) ATN (acute tubular necrosis) Assessment/Plan continue dobutamine drip check intake and output, so far 4.5 liters. up today. PHOTOCOPY OPERATOR consult called to evaluate ovarian and uterine mass./ still waiting check electrolytes EF > 20, anasarca, social workers talked to all three cousins and they agree on hospice. positive tumor markers and uterine and ovarian mass. dc planning in progress to contracted care home or assisted living on lasix to TID, check electrolytes and BNP in am Subjective ROS Limited/Unobtainable: No Interval Events: comfortable Allergies: Coded Allergies: PENICILLIN (Verified Allergy, Unknown, Rash, 03/30/15) Objective Last 24 Hour Vital Signs Date Time Temp Pulse Resp B/P Pulse Ox O2 Delivery O2 Flow Rate FiO2 09/21/16 08:24 83 09/21/16 08:00 97.3 83 20 90/49 100 Nasal Cannula 2.5 09/21/16 07:30 89 09/21/16 04:00 87 09/21/16 03:59 98.1 89 18 104/51 100 Nasal Cannula 2.0 09/21/16 00:00 92 09/21/16 00:00 98.6 82 18 90/51 100 Nasal Cannula 2.0 09/20/16 20:16 99 Nasal Cannula 2.0 28 09/20/16 20:16 Nasal Cannula 2.0 28 09/20/16 20:00 83 09/20/16 19:59 98.1 84 20 90/53 100 Nasal Cannula 2.0 09/20/16 16:22 88 09/20/16 16:00 97.3 71 20 96/56 100 Nasal Cannula 2.0 09/20/16 12:00 97.5 97 20 96/60 100 Nasal Cannula 2.0 Intake and Output 09/20/16 09/21/16 19:00 07:00 Intake Total 345.40 ml 326.48 ml Output Total 1350 ml 750 ml Balance -1004.60 ml -423.52 ml Intake Oral 240 ml 200 ml IV Total 105.40 ml 126.48 ml Output Urine Total 1350 ml 750 ml # Bowel Movements 2 1 Objective General Appearance: WD/WN Lines, tubes and drains: peripheral, HEENT: normocephalic, atraumatic Neck: non-tender, normal alignment Respiratory/Chest: chest wall non-tender, rhonchi Cardiovascular/Chest: normal peripheral pulses, normal rate Abdomen: normal bowel sounds Genitourinary/Rectal: normal genital exam Extremities: normal range of motion, normal inspection Skin Exam: normal pigmentation Laboratory Tests 09/21/16 05:00: White Blood Count 4.6L, Red Blood Count 3.60L, Hemoglobin 9.9L, Hematocrit 30.2L , Mean Corpuscular Volume 84, Mean Corpuscular Hemoglobin 27.5, Mean Corpuscular Hemoglobin Concent 32.7, Red Cell Distribution Width 18.1H, Platelet Count 309, Mean Platelet Volume 6.2L, Neutrophils (%) (Auto) 56.3, Lymphocytes (%) (Auto) 23.5, Monocytes (%) (Auto) 15.1H, Eosinophils (%) (Auto) 1.5, Basophils (%) (Auto) 3.5H, Sodium Level 136, Potassium Level 4.3, Chloride Level 97L, Carbon Dioxide Level 30, Anion Gap 9, Blood Urea Nitrogen 13, Creatinine 0.8, Estimat Glomerular Filtration Rate , Glucose Level 76, Calcium Level 7.8L, Phosphorus Level 3.2, Magnesium Level 1.7, Total Bilirubin 0.5, Aspartate Amino Transf (AST/SGOT) 15, Alanine Aminotransferase (ALT/SGPT) 7, Alkaline Phosphatase 61, Total Protein 5.2L, Albumin 2.2L, Globulin 3.0, Albumin /Globulin Ratio 0.7L Current Medications Medications (Trade) Dose Ordered Sig/Michael Route PRN Reason Start Time Stop Time Status Last Admin Dose Admin Acetaminophen (Tylenol) 650 mg Q4H PRN ORAL fever 09/14/16 22:30 10/14/16 22:29 Chlorhexidine Gluconate (Jessy-Hex 2%) 1 applic DAILY TOPIC 09/15/16 04:00 10/15/16 03:59 09/21/16 08:24 Dextrose (Dextrose 50%) STAT PRN IV Hypoglycemia 09/15/16 14:30 10/15/16 14:29 Digoxin (Lanoxin) 0.125 mg DAILY ORAL 09/15/16 09:00 10/15/16 08:59 09/21/16 08:24 Dobutamine HCl/ Sodium Chloride (Dobutrex/Sodium Chloride) 250 ml @ 10.54 mls/ hr [id number] IV 09/19/16 09:00 10/19/16 08:59 09/21/16 09:15 Furosemide (Lasix) 40 mg EVERY 8 HOURS IV 09/20/16 14:00 10/20/16 13:59 09/21/16 06:29 Heparin Sodium (Porcine) (Heparin 5000 units/ml) 5,000 units EVERY 12 HOURS SUBQ 09/14/16 21:00 10/14/16 20:59 09/21/16 08:23 Insulin Aspart (NovoLOG) BEFORE MEALS AND HS SUBQ 09/14/16 21:00 10/14/16 20:59 09/20/16 17:07 Lorazepam (Ativan 2mg/ml 1ml) 0.5 mg Q4H PRN IV For Anxiety 09/14/16 22:30 09/21/16 22:29 09/18/16 10:55 Morphine Sulfate (Morphine Sulfate) 1 mg Q4H PRN IVP For Pain 09/14/16 22:45 09/21/16 22:44 09/18/16 20:47 Ondansetron HCl (Zofran) 4 mg Q6H PRN IVP Nausea & Vomiting 09/14/16 20:30 10/14/16 20:29 09/20/16 18:36 Pantoprazole (Protonix) 40 mg BID ORAL 09/15/16 09:00 10/15/16 08:59 09/21/16 08:20 Polyethylene Glycol (Miralax) 17 gm HSPRN PRN ORAL Constipation 09/14/16 21:00 10/14/16 20:59 09/17/16 11:12 Potassium Chloride 40 meq 40 meq TWICE A DAY ORAL 09/18/16 09:00 10/18/16 08:59 09/21/16 08:20 Zolpidem Tartrate (Ambien) 5 mg HSPRN PRN ORAL Insomnia 09/14/16 21:00 10/14/16 20:59 09/15/16 22:10 ANGELA BERUMEN Sep 21, 2016 12:05
[2016-09-21 16:00] VITALS: BP_SYST 92; BP_DIAS 57; BP_DIAS 91
[2016-09-21] MEDS ORDERED: Hydrocortisone 2.5% Oint 30gm TOPIC PRN (19:00)
[2016-09-21 20:00] VITALS: BP 104/62
--- NOTE | 2016-09-21 20:39 | Cardiology Progress Note ---
Assessment/Plan Problem List: (1) ICD (implantable cardioverter-defibrillator) in place (2) Renal insufficiency (3) Diabetes mellitus (4) Dehydration (5) EF< 20 (6) Acute systolic heart failure Status: stable Status Narrative Mrs. Mejia appears less dyspneic. However, she has severely decreased LV function Her i/os are negative for past few days. However, wt has increased appx 4 kg- ? accurate. BNP is decreasing. She is on iv lasix and dobutamine. she is s/p bivent icd placement (revision) Assessment/Plan continue diuresis - will continue lasix and inc dobutamine to 3 mcg/kg/min. continue digoxin. Followup labs, incl BNP, in am ? SNF/ rehab transfer ? outpt inotropic support w/ dobutamine Subjective ROS Limited/Unobtainable: No Subjective Ms. Mejia appears calmer and more comfortable this pm. Objective Last 24 Hour Vital Signs Date Time Temp Pulse Resp B/P Pulse Ox O2 Delivery O2 Flow Rate FiO2 09/21/16 20:23 Room Air 09/21/16 20:23 96 Room Air 21 09/21/16 20:00 97.9 96 20 104/62 98 Room Air 2.5 28 09/21/16 16:00 97.5 91 20 92/57 100 Room Air 09/21/16 15:48 90 09/21/16 12:00 97.5 83 22 106/47 97 Room Air 09/21/16 11:52 86 09/21/16 08:24 83 09/21/16 08:00 97.3 83 20 90/49 100 Nasal Cannula 2.5 09/21/16 07:30 89 09/21/16 04:00 87 09/21/16 03:59 98.1 89 18 104/51 100 Nasal Cannula 2.0 09/21/16 00:00 92 09/21/16 00:00 98.6 82 18 90/51 100 Nasal Cannula 2.0 General Appearance: WD/WN, no apparent distress, alert, other - nc 02 EENT: PERRL/EOMI Neck: supple, other - JVD to angle of jaw Cardiovascular: regular rhythm, systolic murmur - ii/vi HSM at apex, gallop/S3 Respiratory/Chest: chest wall non-tender, other - dec bs at bases Abdomen: soft, no mass Extremities: moderate edema Intake and Output 09/20/16 09/21/16 19:00 07:00 Intake Total 345.40 ml 326.48 ml Output Total 1350 ml 750 ml Balance -1004.60 ml -423.52 ml Intake Oral 240 ml 200 ml IV Total 105.40 ml 126.48 ml Output Urine Total 1350 ml 750 ml # Bowel Movements 2 1 Laboratory Tests Test 09/21/16 05:00 White Blood Count 4.6 K/UL (4.8-10.8) L Red Blood Count 3.60 M/UL (4.20-5.40) L Hemoglobin 9.9 G/DL (12.0-16.0) L Hematocrit 30.2 % (37.0-47.0) L Mean Corpuscular Volume 84 FL (80-99) Mean Corpuscular Hemoglobin 27.5 PG (27.0-31.0) Mean Corpuscular Hemoglobin Concent 32.7 G/DL (32.0-36.0) Red Cell Distribution Width 18.1 % (11.6-14.8) H Platelet Count 309 K/UL (150-450) Mean Platelet Volume 6.2 FL (6.5-10.1) L Neutrophils (%) (Auto) 56.3 % (45.0-75.0) Lymphocytes (%) (Auto) 23.5 % (20.0-45.0) Monocytes (%) (Auto) 15.1 % (1.0-10.0) H Eosinophils (%) (Auto) 1.5 % (0.0-3.0) Basophils (%) (Auto) 3.5 % (0.0-2.0) H Sodium Level 136 mEQ/L (135-145) Potassium Level 4.3 mEQ/L (3.4-4.9) Chloride Level 97 mEQ/L (98-107) L Carbon Dioxide Level 30 mEQ/L (20-30) Anion Gap 9 (5-15) Blood Urea Nitrogen 13 mg/dL (7-23) Creatinine 0.8 mg/dL (0.5-0.9) Estimat Glomerular Filtration Rate mL/min (>60) Glucose Level 76 mg/dL (74-106) Calcium Level 7.8 mg/dL (8.6-10.2) L Phosphorus Level 3.2 mg/dL (2.5-4.8) Magnesium Level 1.7 mg/dL (1.7-2.5) Total Bilirubin 0.5 mg/dL (0.0-1.2) Aspartate Amino Transf (AST/SGOT) 15 U/L (5-40) Alanine Aminotransferase (ALT/SGPT) 7 U/L (3-33) Alkaline Phosphatase 61 U/L (35-104) Total Protein 5.2 g/dL (6.6-8.7) L Albumin 2.2 g/dL (3.5-5.2) L Globulin 3.0 g/dL Albumin/Globulin Ratio 0.7 (1.0-2.7) AUGIE GRANADOS Sep 21, 2016 20:39
[2016-09-21] MEDS: Miralax 17gm pkt ORAL PRN (21:14)
--- NOTE | 2016-09-21 22:00 | General Progress Note ---
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 eval pending dvt and ulcer prohylaxis PT OOB likely needs placement Subjective Allergies: Coded Allergies: PENICILLIN (Verified Allergy, Unknown, Rash, 03/30/15) Subjective breathing better no cp Objective Last 24 Hour Vital Signs Date Time Temp Pulse Resp B/P Pulse Ox O2 Delivery O2 Flow Rate FiO2 09/21/16 20:23 Room Air 09/21/16 20:23 96 Room Air 21 09/21/16 20:00 96 09/21/16 20:00 97.9 96 20 104/62 98 Room Air 2.5 28 09/21/16 16:00 97.5 91 20 92/57 100 Room Air 09/21/16 15:48 90 09/21/16 12:00 97.5 83 22 106/47 97 Room Air 09/21/16 11:52 86 09/21/16 08:24 83 09/21/16 08:00 97.3 83 20 90/49 100 Nasal Cannula 2.5 09/21/16 07:30 89 09/21/16 04:00 87 09/21/16 03:59 98.1 89 18 104/51 100 Nasal Cannula 2.0 09/21/16 00:00 92 09/21/16 00:00 98.6 82 18 90/51 100 Nasal Cannula 2.0 Intake and Output 09/20/16 09/21/16 19:00 07:00 Intake Total 345.40 ml 326.48 ml Output Total 1350 ml 750 ml Balance -1004.60 ml -423.52 ml Intake Oral 240 ml 200 ml IV Total 105.40 ml 126.48 ml Output Urine Total 1350 ml 750 ml # Bowel Movements 2 1 Laboratory Tests 09/21/16 05:00: White Blood Count 4.6L, Red Blood Count 3.60L, Hemoglobin 9.9L, Hematocrit 30.2L , Mean Corpuscular Volume 84, Mean Corpuscular Hemoglobin 27.5, Mean Corpuscular Hemoglobin Concent 32.7, Red Cell Distribution Width 18.1H, Platelet Count 309, Mean Platelet Volume 6.2L, Neutrophils (%) (Auto) 56.3, Lymphocytes (%) (Auto) 23.5, Monocytes (%) (Auto) 15.1H, Eosinophils (%) (Auto) 1.5, Basophils (%) (Auto) 3.5H, Sodium Level 136, Potassium Level 4.3, Chloride Level 97L, Carbon Dioxide Level 30, Anion Gap 9, Blood Urea Nitrogen 13, Creatinine 0.8, Estimat Glomerular Filtration Rate , Glucose Level 76, Calcium Level 7.8L, Phosphorus Level 3.2, Magnesium Level 1.7, Total Bilirubin 0.5, Aspartate Amino Transf (AST/SGOT) 15, Alanine Aminotransferase (ALT/SGPT) 7, Alkaline Phosphatase 61, Total Protein 5.2L, Albumin 2.2L, Globulin 3.0, Albumin /Globulin Ratio 0.7L Height (Feet): 5 Height (Inches): 4.00 Weight (Pounds): 164 General Appearance: WD/WN Cardiovascular: normal rate Respiratory/Chest: lungs clear Abdomen: soft Objective pos edema bilaterlly BLANCA GORDILLO Sep 21, 2016 22:00
[2016-09-22] VITALS: BP 97/56
[2016-09-22] MEDS: Dyna-Hex 2% Top Sol 8oz TOPIC SCH ×2 (01:19→08:51)
[2016-09-22 04:00] VITALS: BP 97/56
[2016-09-22 05:48] LABS: BASOPHILS % (AUTO) 2.3 % (0.0-2.0); EOSINOPHILS % (AUTO) 1.1 % (0.0-3.0); LYMPHOCYTES % (AUTO) 20.4 % (20.0-45.0); MEAN CORPUSCULAR HEMOGLOBIN 27.3 PG (27.0-31.0); MEAN CORPUSCULAR HGB CONC 32.5 G/DL (32.0-36.0); MEAN CORPUSCULAR VOLUME 84 FL (80-99); MONOCYTES % (AUTO) 15.2 % (1.0-10.0); PLATELET COUNT 319 K/UL (150-450); RED BLOOD COUNT 3.73 M/UL (4.20-5.40); RED CELL DISTRIBUTION WIDTH 18.3 % (11.6-14.8); WHITE BLOOD COUNT 4.6 K/UL (4.8-10.8)
[2016-09-22] MEDS: NovoLOG Insulin Flexpen SUBQ SCH ×4 (06:16→23:18)
[2016-09-22 06:24] LABS: ALANINE AMINOTRANSFERASE 8 U/L (3-33); ALBUMIN/GLOBULIN RATIO 0.7 (1.0-2.7); ANION GAP 9 (5-15); ASPARTATE AMINO TRANSFERASE 20 U/L (5-40); CALCIUM 7.8 mg/dL (8.6-10.2); CARBON DIOXIDE 31 mEQ/L (20-30); CHLORIDE 96 mEQ/L (98-107); CREATININE 0.8 mg/dL (0.5-0.9); HEMOLYSIS 2; POTASSIUM 3.7 mEQ/L (3.4-4.9); SODIUM 136 mEQ/L (135-145); TOTAL PROTEIN 5.5 g/dL (6.6-8.7)
[2016-09-22 07:39] VITALS: BP 105/56
[2016-09-22] MEDS: Heparin 5000 units/ml inj SUBQ SCH ×2 (08:50→23:21)
[2016-09-22] MEDS: KCl 10% 40mEq/30ml liquid ORAL SCH ×2 (08:50→17:14)
[2016-09-22] MEDS: Digoxin 0.125mg tab ORAL SCH (08:51)
[2016-09-22] MEDS ORDERED: NS IV SCH (09:00)
[2016-09-22] MEDS ORDERED: DOBUTAMINE IV SCH (09:00)
--- NOTE | 2016-09-22 11:05 | Pulmonology Progress Note ---
Assessment/Plan Problems: (1) Anasarca (2) Pulmonary edema (3) Renal insufficiency (4) EF< 20 (5) uterine and ovarian mass (6) increased tumor markers (7) Protein-calorie malnutrition, severe (8) ICD (implantable cardioverter-defibrillator) in place (9) Impaired mobility and ADLs (10) Diabetes mellitus (11) ATN (acute tubular necrosis) Assessment/Plan continue dobutamine drip check intake and output, so far 7.5 liters. up today. MEDICAL CODER consult called to evaluate ovarian and uterine mass./ still waiting check electrolytes EF > 20, anasarca, social workers talked to all three cousins and they agree on hospice. positive tumor markers and uterine and ovarian mass. dc planning in progress to contracted [facility] or assisted living on lasix to TID, check electrolytes and BNP in am Physical therapy note reviewed. Subjective ROS Limited/Unobtainable: No Constitutional: Reports: no symptoms HEENT: Repors: no symptoms Respiratory: Reports: no symptoms Allergies: Coded Allergies: PENICILLIN (Verified Allergy, Unknown, Rash, 03/30/15) Objective Last 24 Hour Vital Signs Date Time Temp Pulse Resp B/P Pulse Ox O2 Delivery O2 Flow Rate FiO2 09/22/16 08:51 98 09/22/16 08:00 91 09/22/16 07:39 97.2 98 18 105/56 95 Room Air 09/22/16 04:00 98.5 95 20 97/56 97 Room Air 2.5 21 09/22/16 04:00 98 09/22/16 00:00 98.8 95 20 97/56 97 Room Air 2.5 21 09/22/16 00:00 98 09/21/16 20:23 Room Air 09/21/16 20:23 96 Room Air 21 09/21/16 20:00 96 09/21/16 20:00 97.9 96 20 104/62 98 Room Air 2.5 28 09/21/16 16:00 97.5 91 20 92/57 100 Room Air 09/21/16 15:48 90 09/21/16 12:00 97.5 83 22 106/47 97 Room Air 09/21/16 11:52 86 Intake and Output 09/21/16 09/22/16 19:00 07:00 Intake Total 1113.305 ml Output Total 1600 ml 1400 ml Balance -486.695 ml -1400 ml Intake Oral 1000 ml IV Total 113.305 ml Output Urine Total 1600 ml 1400 ml # Bowel Movements 1 Objective General Appearance: WD/WN Lines, tubes and drains: peripheral, HEENT: normocephalic, atraumatic Neck: non-tender, normal alignment Respiratory/Chest: chest wall non-tender, rhonchi Cardiovascular/Chest: normal peripheral pulses, normal rate Abdomen: normal bowel sounds Genitourinary/Rectal: normal genital exam Extremities: normal range of motion, normal inspection Skin Exam: normal pigmentation Laboratory Tests 09/22/16 03:35: White Blood Count 4.6L, Red Blood Count 3.73L, Hemoglobin 10.2L, Hematocrit 31.4L, Mean Corpuscular Volume 84, Mean Corpuscular Hemoglobin 27.3, Mean Corpuscular Hemoglobin Concent 32.5, Red Cell Distribution Width 18.3H, Platelet Count 319, Mean Platelet Volume 6.0L, Neutrophils (%) (Auto) 61.0, Lymphocytes (%) (Auto) 20.4, Monocytes (%) (Auto) 15.2H, Eosinophils (%) (Auto) 1.1, Basophils (%) (Auto) 2.3H, Sodium Level 136, Potassium Level 3.7, Chloride Level 96L, Carbon Dioxide Level 31H, Anion Gap 9, Blood Urea Nitrogen 17, Creatinine 0.8, Estimat Glomerular Filtration Rate , Glucose Level 70L, Calcium Level 7.8L, Total Bilirubin 0.3, Aspartate Amino Transf (AST/SGOT) 20, Alanine Aminotransferase (ALT/SGPT) 8, Alkaline Phosphatase 68, Pro-B-Type Natriuretic Peptide [id number], Total Protein 5.5L, Albumin 2.3L, Globulin 3.2, Albumin/ Globulin Ratio 0.7L Current Medications Medications (Trade) Dose Ordered Sig/Michael Route PRN Reason Start Time Stop Time Status Last Admin Dose Admin Acetaminophen (Tylenol) 650 mg Q4H PRN ORAL fever 09/14/16 22:30 10/14/16 22:29 Chlorhexidine Gluconate 1 applic 1 applic DAILY TOPIC 09/22/16 01:00 10/22/16 00:59 09/22/16 08:51 Dextrose (Dextrose 50%) STAT PRN IV Hypoglycemia 09/15/16 14:30 10/15/16 14:29 Digoxin (Lanoxin) 0.125 mg DAILY ORAL 09/15/16 09:00 10/15/16 08:59 09/22/16 08:51 Dobutamine HCl/ Sodium Chloride (Dobutrex/Sodium Chloride) 250 ml @ 12.65 mls/ hr [id number] IV 09/22/16 09:00 10/22/16 08:59 09/22/16 09:33 Furosemide (Lasix) 40 mg EVERY 8 HOURS IV 09/20/16 14:00 10/20/16 13:59 09/22/16 06:17 Heparin Sodium (Porcine) (Heparin 5000 units/ml) 5,000 units EVERY 12 HOURS SUBQ 09/14/16 21:00 10/14/16 20:59 09/22/16 08:50 Hydrocortisone (Hydrocortisone) 1 applic EVERY 4 HOURS PRN TOPIC Itching 09/21/16 19:00 10/21/16 18:59 Insulin Aspart (NovoLOG) BEFORE MEALS AND HS SUBQ 09/14/16 21:00 10/14/16 20:59 09/21/16 21:21 Ondansetron HCl (Zofran) 4 mg Q6H PRN IVP Nausea & Vomiting 09/14/16 20:30 10/14/16 20:29 09/20/16 18:36 Pantoprazole (Protonix) 40 mg BID ORAL 09/15/16 09:00 10/15/16 08:59 09/22/16 08:51 Polyethylene Glycol (Miralax) 17 gm HSPRN PRN ORAL Constipation 09/14/16 21:00 10/14/16 20:59 09/21/16 21:14 Potassium Chloride (KCl 10% 40mEq Oral solution) 40 meq TWICE A DAY ORAL 09/18/16 09:00 10/18/16 08:59 09/22/16 08:50 Zolpidem Tartrate (Ambien) 5 mg HSPRN PRN ORAL Insomnia 09/14/16 21:00 10/14/16 20:59 09/15/16 22:10 ANGELA BERUMEN Sep 22, 2016 11:05
--- NOTE | 2016-09-22 11:09 | General Progress Note ---
Assessment/Plan Status: stable Assessment/Plan status: Proteinuria, likely Diabetic Nephropathy HypoAlbuminemia: Increase Loss vs Decrease production- UTI Anemia Failure to thrive / Dehydration Pacer severe cardiomyopathy Ej Fx 20% Low Ca , corrects with Low Alb Plan; ? DC planning?? Optimize cardiac status- Anemia hauser- K supplement- as needed 24 H urine for protein- nominal monitor renal parameters gastric support- stop [facility]- 2D Echo : Low EjFx per orders Subjective ROS Limited/Unobtainable: No Allergies: Coded Allergies: PENICILLIN (Verified Allergy, Unknown, Rash, 03/30/15) Objective Last 24 Hour Vital Signs Date Time Temp Pulse Resp B/P Pulse Ox O2 Delivery O2 Flow Rate FiO2 09/22/16 08:51 98 09/22/16 08:00 91 09/22/16 07:39 97.2 98 18 105/56 95 Room Air 09/22/16 04:00 98.5 95 20 97/56 97 Room Air 2.5 21 09/22/16 04:00 98 09/22/16 00:00 98.8 95 20 97/56 97 Room Air 2.5 21 09/22/16 00:00 98 09/21/16 20:23 Room Air 09/21/16 20:23 96 Room Air 21 09/21/16 20:00 96 09/21/16 20:00 97.9 96 20 104/62 98 Room Air 2.5 28 09/21/16 16:00 97.5 91 20 92/57 100 Room Air 09/21/16 15:48 90 09/21/16 12:00 97.5 83 22 106/47 97 Room Air 09/21/16 11:52 86 Intake and Output 09/21/16 09/22/16 19:00 07:00 Intake Total 1113.305 ml Output Total 1600 ml 1400 ml Balance -486.695 ml -1400 ml Intake Oral 1000 ml IV Total 113.305 ml Output Urine Total 1600 ml 1400 ml # Bowel Movements 1 Laboratory Tests 09/22/16 03:35: White Blood Count 4.6L, Red Blood Count 3.73L, Hemoglobin 10.2L, Hematocrit 31.4L, Mean Corpuscular Volume 84, Mean Corpuscular Hemoglobin 27.3, Mean Corpuscular Hemoglobin Concent 32.5, Red Cell Distribution Width 18.3H, Platelet Count 319, Mean Platelet Volume 6.0L, Neutrophils (%) (Auto) 61.0, Lymphocytes (%) (Auto) 20.4, Monocytes (%) (Auto) 15.2H, Eosinophils (%) (Auto) 1.1, Basophils (%) (Auto) 2.3H, Sodium Level 136, Potassium Level 3.7, Chloride Level 96L, Carbon Dioxide Level 31H, Anion Gap 9, Blood Urea Nitrogen 17, Creatinine 0.8, Estimat Glomerular Filtration Rate , Glucose Level 70L, Calcium Level 7.8L, Total Bilirubin 0.3, Aspartate Amino Transf (AST/SGOT) 20, Alanine Aminotransferase (ALT/SGPT) 8, Alkaline Phosphatase 68, Pro-B-Type Natriuretic Peptide [id number], Total Protein 5.5L, Albumin 2.3L, Globulin 3.2, Albumin/ Globulin Ratio 0.7L Height (Feet): 5 Height (Inches): 4.00 Weight (Pounds): 170 General Appearance: no apparent distress Objective no change in PE FAUZIA MAYA Sep 22, 2016 11:09
[2016-09-22 12:00] VITALS: BP 96/59
[2016-09-22 16:00] VITALS: BP 100/61
[2016-09-22] MEDS ORDERED: FUROSEMIDE40 MG ORAL (18:36)
[2016-09-22] MEDS ORDERED: MIRALAX17 G2 ORAL (18:36)
[2016-09-22 20:00] VITALS: BP 103/59
--- NOTE | 2016-09-22 20:26 | Cardiology Progress Note ---
Assessment/Plan Problem List: (1) ICD (implantable cardioverter-defibrillator) in place (2) Renal insufficiency (3) Diabetes mellitus (4) Dehydration (5) EF< 20 (6) Acute systolic heart failure Status: stable, progressing Status Narrative Mrs. Mejia appears clinically stable. Her wt has increased progressively, though i/os are negative. She appears less vol overloaded. Uterine, ovarian mass - noted decision for conservative management and consideration for hospice Assessment/Plan continue diuresis - will continue lasix - can be given iv at rehab center, as she has PICC line. dobutamine has been dcd Plan for transfer to SNF today noted. Subjective ROS Limited/Unobtainable: No Subjective Ms. Mejia is anxious about dc. No resp distress Objective Last 24 Hour Vital Signs Date Time Temp Pulse Resp B/P Pulse Ox O2 Delivery O2 Flow Rate FiO2 09/22/16 16:00 97.7 95 21 100/61 98 Room Air 09/22/16 16:00 99 09/22/16 12:00 87 09/22/16 12:00 97.2 18 96/59 95 Room Air 2.5 21 09/22/16 08:51 98 09/22/16 08:00 91 09/22/16 07:39 97.2 98 18 105/56 95 Room Air 09/22/16 04:00 98.5 95 20 97/56 97 Room Air 2.5 21 09/22/16 04:00 98 09/22/16 00:00 98.8 95 20 97/56 97 Room Air 2.5 21 09/22/16 00:00 98 09/21/16 20:23 Room Air 09/21/16 20:23 96 Room Air 21 General Appearance: WD/WN, alert, mild distress EENT: PERRL/EOMI Neck: supple, other - JVP at angle of jaw Rhythm: NSR Cardiovascular: normal rate, regular rhythm, systolic murmur - ii/vi HSM at apex - axilla, gallop/S3 Abdomen: non tender, soft Extremities: moderate edema Intake and Output 09/21/16 09/22/16 19:00 07:00 Intake Total 1113.305 ml Output Total 1600 ml 1400 ml Balance -486.695 ml -1400 ml Intake Oral 1000 ml IV Total 113.305 ml Output Urine Total 1600 ml 1400 ml # Bowel Movements 1 Laboratory Tests Test 09/22/16 03:35 White Blood Count 4.6 K/UL (4.8-10.8) L Red Blood Count 3.73 M/UL (4.20-5.40) L Hemoglobin 10.2 G/DL (12.0-16.0) L Hematocrit 31.4 % (37.0-47.0) L Mean Corpuscular Volume 84 FL (80-99) Mean Corpuscular Hemoglobin 27.3 PG (27.0-31.0) Mean Corpuscular Hemoglobin Concent 32.5 G/DL (32.0-36.0) Red Cell Distribution Width 18.3 % (11.6-14.8) H Platelet Count 319 K/UL (150-450) Mean Platelet Volume 6.0 FL (6.5-10.1) L Neutrophils (%) (Auto) 61.0 % (45.0-75.0) Lymphocytes (%) (Auto) 20.4 % (20.0-45.0) Monocytes (%) (Auto) 15.2 % (1.0-10.0) H Eosinophils (%) (Auto) 1.1 % (0.0-3.0) Basophils (%) (Auto) 2.3 % (0.0-2.0) H Sodium Level 136 mEQ/L (135-145) Potassium Level 3.7 mEQ/L (3.4-4.9) Chloride Level 96 mEQ/L (98-107) L Carbon Dioxide Level 31 mEQ/L (20-30) H Anion Gap 9 (5-15) Blood Urea Nitrogen 17 mg/dL (7-23) Creatinine 0.8 mg/dL (0.5-0.9) Estimat Glomerular Filtration Rate mL/min (>60) Glucose Level 70 mg/dL (74-106) L Calcium Level 7.8 mg/dL (8.6-10.2) L Total Bilirubin 0.3 mg/dL (0.0-1.2) Aspartate Amino Transf (AST/SGOT) 20 U/L (5-40) Alanine Aminotransferase (ALT/SGPT) 8 U/L (3-33) Alkaline Phosphatase 68 U/L (35-104) Pro-B-Type Natriuretic Peptide 34018 pg/mL (0-125) H Total Protein 5.5 g/dL (6.6-8.7) L Albumin 2.3 g/dL (3.5-5.2) L Globulin 3.2 g/dL Albumin/Globulin Ratio 0.7 (1.0-2.7) L AUGIE FONSECA Sep 22, 2016 20:26
--- NOTE | 2016-09-22 20:40 | Wound Care Consultation ---
Wound Assessment Wound Assessment #1: Wound Number: #1 Wound Present on Admission: Yes New Wound: No Status Change of Wound: No Wound Location Body Site Modif: left Wound Location Body Site: buttocks Wound Type: pressure ulcer Michael Test: Does not Michael Pressure Ulcer Stage: II Wound Thickness: Partial Thickness Wound Length: 1.0 Wound Width: 0.5 Wound Depth: <0.1 Percent of Wound [place]/Red: 100 Wound Drainage Amount: None Wound Drainage Odor: None/Absent Tissue Surrounding Wound: Intact Wound General Appearance: Reddened Wound Assessment #2: Wound Number: #2 Wound Present on Admission: Yes New Wound: No Status Change of Wound: No Wound Location Body Site Modif: right Wound Location Body Site: buttocks Wound Type: pressure ulcer Michael Test: Does not Michael Pressure Ulcer Stage: II Wound Thickness: Partial Thickness Wound Length: 0.5 Wound Width: 0.5 Wound Depth: <0.1 Percent of Wound [place]/Red: 100 Wound Drainage Amount: None Wound Drainage Odor: None/Absent Tissue Surrounding Wound: Intact Wound General Appearance: Reddened Wound Assessment #3: Wound Number: #3 Wound Present on Admission: Yes New Wound: No Status Change of Wound: No Wound Location Body Site Modif: mid Wound Location Body Site: sacral Wound Type: pressure ulcer Pressure Ulcer Stage: deep tissue injury - resolved. Wound Drainage Amount: None Wound Drainage Odor: None/Absent Tissue Surrounding Wound: Intact Wound General Appearance: Clean/Dry - resolved. Wound Comment #1 left buttock stage II pressure ulcer. noted good progress resolving decrease in size. #2 right buttock stage II pressure ulcer. noted good progress resolving decrease in size. #3 Perineal chemical burn noted good progress skin intact. #4 sacral deep tissue injury-resolved, skin remains intact, no maroon color present, no c/o pain to site, no boggy. #5 left and right lower legs with dry and flaky skin , noted good progress decrease in dry skin ,skin intact. #6 left and right feet dry and flaky skin , noted good progress decrease in dry skin noted , skin intact. upon reassessment noted good progress to admitted wounds. no further deterioration noted. Recommendation. -Sacral and left and right buttocks Cleanse with saline, pat dry, apply Triad cream, cover with bordered gauze daily and PRN soiled/dislodged -Keep clean dry -Turn and reposition -Low air loss mattress -Optimize nutrition -Offload both heels -Heel protector on both heels -Assess and f/u accordingly for any changes GERI YOUNG Sep 22, 2016 20:40
--- NOTE | 2016-09-22 22:35 | General Progress Note ---
Assessment/Plan Assessment/Plan cardiomyopathy with EF less than 20% AICD renal failure diabetes severe protein calorie malnutrition ho breast cancer uternine/ovarian mass ho recetnl cellulitis ho noncompliace failure to thrive diuresis monitor renal parameters ss insulin coverage encourage po supplements physician gynecologist eval pending dvt and ulcer prohylaxis PT OOB likely needs placement Subjective Allergies: Coded Allergies: PENICILLIN (Verified Allergy, Unknown, Rash, 03/30/15) Subjective breathing better no cp Objective Last 24 Hour Vital Signs Date Time Temp Pulse Resp B/P Pulse Ox O2 Delivery O2 Flow Rate FiO2 09/22/16 20:00 100 09/22/16 20:00 97.9 96 20 103/59 96 09/22/16 16:00 97.7 95 21 100/61 98 Room Air 09/22/16 16:00 99 09/22/16 12:00 87 09/22/16 12:00 97.2 18 96/59 95 Room Air 2.5 21 09/22/16 08:51 98 09/22/16 08:00 91 09/22/16 07:39 97.2 98 18 105/56 95 Room Air 09/22/16 04:00 98.5 95 20 97/56 97 Room Air 2.5 21 09/22/16 04:00 98 09/22/16 00:00 98.8 95 20 97/56 97 Room Air 2.5 21 09/22/16 00:00 98 Intake and Output 09/21/16 09/22/16 19:00 07:00 Intake Total 1113.305 ml Output Total 1600 ml 1400 ml Balance -486.695 ml -1400 ml Intake Oral 1000 ml IV Total 113.305 ml Output Urine Total 1600 ml 1400 ml # Bowel Movements 1 Laboratory Tests 09/22/16 03:35: White Blood Count 4.6L, Red Blood Count 3.73L, Hemoglobin 10.2L, Hematocrit 31.4L, Mean Corpuscular Volume 84, Mean Corpuscular Hemoglobin 27.3, Mean Corpuscular Hemoglobin Concent 32.5, Red Cell Distribution Width 18.3H, Platelet Count 319, Mean Platelet Volume 6.0L, Neutrophils (%) (Auto) 61.0, Lymphocytes (%) (Auto) 20.4, Monocytes (%) (Auto) 15.2H, Eosinophils (%) (Auto) 1.1, Basophils (%) (Auto) 2.3H, Sodium Level 136, Potassium Level 3.7, Chloride Level 96L, Carbon Dioxide Level 31H, Anion Gap 9, Blood Urea Nitrogen 17, Creatinine 0.8, Estimat Glomerular Filtration Rate , Glucose Level 70L, Calcium Level 7.8L, Total Bilirubin 0.3, Aspartate Amino Transf (AST/SGOT) 20, Alanine Aminotransferase (ALT/SGPT) 8, Alkaline Phosphatase 68, Pro-B-Type Natriuretic Peptide 93995S, Total Protein 5.5L, Albumin 2.3L, Globulin 3.2, Albumin/ Globulin Ratio 0.7L Height (Feet): 5 Height (Inches): 4.00 Weight (Pounds): 170 General Appearance: WD/WN, no apparent distress Neck: supple Cardiovascular: regular rhythm Respiratory/Chest: crackles/rales Abdomen: normal bowel sounds, soft Objective pos edema bilaterally decreased BLANCA GORDILLO Sep 22, 2016 22:35
--- NOTE | 2016-09-22 22:45 | Consultation ---
DATE OF CONSULTATION: HISTORY OF PRESENT ILLNESS: The patient is a 75-year-old female who was admitted to [facility] through emergency room due to her general condition including acute encephalopathy, total body weakness, and total confusion. Her blood pressure was on the low side. She was found at home lying on the floor for unknown period of time. I was invited to evaluate the patient due to abnormal finding on ultrasound and CAT scan in the pelvic area. On floor conversation I was able to hold with the patient, I found the patient had right mastectomy due to breast cancer 10 years ago. She denies any other surgeries. She is not in clear state of mind and no more information I was able to obtain. From gynecological standpoint, she denies any previous pregnancies or deliveries. She denies any gynecological problems in the past. PHYSICAL EXAMINATION: BREASTS: On evaluation, left breast with no masses and nipples without discharge. Right breast is absent. ABDOMEN: Protuberant, nontender. Costovertebral angle is nontender. Bowel sounds present. Rebound tenderness absent. PELVIC: Her pelvic exam was impossible to perform due to complete obliteration of the entrance in the vagina and the patient being very uncooperative. LABORATORY AND DIAGNOSTIC DATA: On ultrasound was identified uterus is enlarged, irregular with several solid masses. The endometrial complex measured 8 mm. Right ovary not identified, left ovary not identified. No abnormality seen besides from described above. IMPRESSION: 1. History of breast cancer, status post right mastectomy 10 years ago. 2. Asymptomatic uterine fibroid. 3. Endometrial abnormal structure 8 mm, more likely calcified submucosal fibroids and the abnormality seen on this side is more likely pedunculated subserosal fibroid. 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 Dejah Childs M.D. DR: KERRY JOB#: [id number] CC:
[2016-09-23] VITALS (7 sets, daily range): BP systolic 91–147; BP diastolic 50–81
[2016-09-23] MEDS ORDERED: Zolpidem 5mg tab ORAL PRN (00:54)
[2016-09-23] MEDS ORDERED: Hydrocortisone 2.5% Oint 30gm TOPIC PRN (01:00)
[2016-09-23] MEDS: NovoLOG Insulin Flexpen SUBQ SCH ×4 (06:18→21:17)
[2016-09-23] MEDS: Digoxin 0.125mg tab ORAL SCH (08:40)
[2016-09-23] MEDS: KCl 10% 40mEq/30ml liquid ORAL SCH ×2 (08:41→17:12)
[2016-09-23] MEDS: Dyna-Hex 2% Top Sol 8oz TOPIC SCH (08:41)
[2016-09-23] MEDS: Heparin 5000 units/ml inj SUBQ SCH ×2 (08:42→20:47)
--- NOTE | 2016-09-23 09:40 | General Progress Note ---
Assessment/Plan Status: stable Assessment/Plan status: Proteinuria, likely Diabetic Nephropathy HypoAlbuminemia: Increase Loss vs Decrease production- UTI Anemia Failure to thrive / Dehydration Pacer severe cardiomyopathy Ej Fx 20% Low Ca , corrects with Low Alb Plan; ? DC planning?? Optimize cardiac status- Anemia hauser- K supplement- as needed 24 H urine for protein- nominal monitor renal parameters gastric support- stop [facility]- 2D Echo : Low EjFx per orders Subjective ROS Limited/Unobtainable: No Constitutional: Reports: malaise Allergies: Coded Allergies: PENICILLIN (Verified Allergy, Unknown, Rash, 03/30/15) Objective Last 24 Hour Vital Signs Date Time Temp Pulse Resp B/P Pulse Ox O2 Delivery O2 Flow Rate FiO2 09/23/16 08:40 93 09/23/16 08:22 96.6 93 19 93/65 100 Room Air 09/23/16 04:30 98.1 89 20 91/58 100 Room Air 09/23/16 04:00 98.1 89 20 100 Room Air 09/23/16 01:30 97.9 92 18 96/57 100 Room Air 09/23/16 00:00 100 09/23/16 00:00 97.7 92 18 116/61 99 09/22/16 20:00 100 09/22/16 20:00 97.9 96 20 103/59 96 09/22/16 16:00 97.7 95 21 100/61 98 Room Air 09/22/16 16:00 99 09/22/16 12:00 87 09/22/16 12:00 97.2 18 96/59 95 Room Air 2.5 21 Intake and Output 09/22/16 09/23/16 19:00 07:00 Intake Total 463.85 ml 150 ml Output Total 1550 ml 450 ml Balance -1086.15 ml -300 ml Intake Oral 350 ml 150 ml IV Total 113.85 ml Output Urine Total 1550 ml 450 ml # Bowel Movements 1 2 Height (Feet): 5 Height (Inches): 4.00 Weight (Pounds): 170 General Appearance: no apparent distress Objective no change in PE FAUZIA MAYA Sep 23, 2016 09:40
[2016-09-23 13:41] LABS: INR 1.1 (0.9-1.1); PROTHROMBIN TIME 11.1 SEC (9.30-11.50)
[2016-09-23] MEDS ORDERED: LORazepam Inj 2mg/ml 1ml IV PRN (16:30)
--- NOTE | 2016-09-23 17:51 | Pulmonology Progress Note ---
Assessment/Plan Problems: (1) Anasarca (2) Pulmonary edema (3) Renal insufficiency (4) EF< 20 (5) uterine and ovarian mass (6) increased tumor markers (7) Protein-calorie malnutrition, severe (8) ICD (implantable cardioverter-defibrillator) in place (9) Impaired mobility and ADLs (10) Diabetes mellitus (11) ATN (acute tubular necrosis) Assessment/Plan check intake and output, so far 7.5 liters. up today. check electrolytes EF < 20, anasarca, social workers talked to all three cousins and they agree on hospice. positive tumor markers and uterine and ovarian mass. dc planning in progress to contracted halfway or assisted living on lasix to TID, check electrolytes and BNP in am Subjective ROS Limited/Unobtainable: No Constitutional: Reports: no symptoms HEENT: Repors: no symptoms Respiratory: Reports: no symptoms Allergies: Coded Allergies: PENICILLIN (Verified Allergy, Unknown, Rash, 03/30/15) Objective Last 24 Hour Vital Signs Date Time Temp Pulse Resp B/P Pulse Ox O2 Delivery O2 Flow Rate FiO2 09/23/16 16:01 97.2 110 19 107/50 100 Room Air 09/23/16 12:00 96.6 107 19 103/58 98 Nasal Cannula 09/23/16 08:40 93 09/23/16 08:22 96.6 93 19 93/65 100 Room Air 09/23/16 04:30 98.1 89 20 91/58 100 Room Air 09/23/16 04:00 98.1 89 20 100 Room Air 09/23/16 01:30 97.9 92 18 96/57 100 Room Air 09/23/16 00:00 100 09/23/16 00:00 97.7 92 18 116/61 99 09/22/16 20:00 100 09/22/16 20:00 97.9 96 20 103/59 96 Intake and Output 09/22/16 09/23/16 19:00 07:00 Intake Total 463.85 ml 150 ml Output Total 1550 ml 450 ml Balance -1086.15 ml -300 ml Intake Oral 350 ml 150 ml IV Total 113.85 ml Output Urine Total 1550 ml 450 ml # Bowel Movements 1 2 Objective General Appearance: WD/WN Lines, tubes and drains: peripheral, HEENT: normocephalic, atraumatic Neck: non-tender, normal alignment Respiratory/Chest: chest wall non-tender, rhonchi Cardiovascular/Chest: normal peripheral pulses, normal rate Abdomen: normal bowel sounds Genitourinary/Rectal: normal genital exam Extremities: normal range of motion, normal inspection Skin Exam: normal pigmentation Laboratory Tests 09/23/16 13:15: Prothrombin Time 11.1, Prothromb Time International Ratio 1.1 Current Medications Medications (Trade) Dose Ordered Sig/Michael Route PRN Reason Start Time Stop Time Status Last Admin Dose Admin Acetaminophen (Tylenol) 650 mg Q4H PRN ORAL Mild Pain/Temp > 100.5 09/23/16 14:00 10/23/16 13:59 Chlorhexidine Gluconate (Jessy-Hex 2%) 1 applic DAILY TOPIC 09/23/16 09:00 10/23/16 08:59 09/23/16 08:41 Dextrose (Dextrose 50%) STAT PRN IV Hypoglycemia 09/23/16 00:52 10/23/16 00:51 Digoxin (Lanoxin) 0.125 mg DAILY ORAL 09/23/16 09:00 10/23/16 08:59 09/23/16 08:40 Furosemide (Lasix) 40 mg EVERY 8 HOURS IV 09/23/16 06:00 10/23/16 05:59 Heparin Sodium (Porcine) (Heparin 5000 units/ml) 5,000 units EVERY 12 HOURS SUBQ 09/23/16 09:00 10/23/16 08:59 09/23/16 08:42 Hydrocortisone (Hydrocortisone) 1 applic Q4H PRN TOPIC Itching 09/23/16 01:00 10/23/16 00:59 Insulin Aspart (NovoLOG) BEFORE MEALS AND HS SUBQ 09/23/16 06:30 10/23/16 06:29 09/23/16 17:14 Lorazepam (Ativan 2mg/ml 1ml) 0.5 mg Q4H PRN IV For Anxiety 09/23/16 16:30 09/30/16 16:29 Ondansetron HCl (Zofran) 4 mg Q6H PRN IVP Nausea & Vomiting 09/23/16 02:30 10/23/16 02:29 Pantoprazole (Protonix) 40 mg BID ORAL 09/23/16 09:00 10/23/16 08:59 09/23/16 17:12 Polyethylene Glycol (Miralax) 17 gm HSPRN PRN ORAL Constipation 09/23/16 21:00 10/23/16 20:59 Potassium Chloride (KCl 10% 40mEq Oral solution) 40 meq TWICE A DAY ORAL 09/23/16 09:00 10/23/16 08:59 09/23/16 17:12 Zolpidem Tartrate (Ambien) 5 mg HSPRN PRN ORAL Insomnia 09/23/16 00:54 10/23/16 00:53 ANGELA BERUMEN Sep 23, 2016 17:51
--- NOTE | 2016-09-23 19:34 | Cardiology Progress Note ---
Assessment/Plan Assessment/Plan improved after diuresis follow lytes Subjective Subjective the she feels much better no pain, resting comfortably Objective Last 24 Hour Vital Signs Date Time Temp Pulse Resp B/P Pulse Ox O2 Delivery O2 Flow Rate FiO2 09/23/16 16:01 97.2 110 19 107/50 100 Room Air 09/23/16 12:00 96.6 107 19 103/58 98 Nasal Cannula 09/23/16 08:40 93 09/23/16 08:22 96.6 93 19 93/65 100 Room Air 09/23/16 04:30 98.1 89 20 91/58 100 Room Air 09/23/16 04:00 98.1 89 20 100 Room Air 09/23/16 01:30 97.9 92 18 96/57 100 Room Air 09/23/16 00:00 100 09/23/16 00:00 97.7 92 18 116/61 99 09/22/16 20:00 100 09/22/16 20:00 97.9 96 20 103/59 96 General Appearance: mild distress EENT: PERRL/EOMI Neck: JVD Rhythm: Afib, other - regular Cardiovascular: other - paced Respiratory/Chest: crackles/rales Abdomen: distended Extremities: pitting Intake and Output 09/22/16 09/23/16 19:00 07:00 Intake Total 463.85 ml 150 ml Output Total 1550 ml 450 ml Balance -1086.15 ml -300 ml Intake Oral 350 ml 150 ml IV Total 113.85 ml Output Urine Total 1550 ml 450 ml # Bowel Movements 1 2 Laboratory Tests Test 09/23/16 13:15 Prothrombin Time 11.1 SEC (9.30-11.50) Prothromb Time International Ratio 1.1 (0.9-1.1) VINNIE LOCKE Sep 23, 2016 19:34
[2016-09-23] MEDS ORDERED: Miralax 17gm pkt ORAL PRN (21:00)
--- NOTE | 2016-09-23 23:29 | General Progress Note ---
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 appreciated dvt and ulcer prohylaxis PT OOB likely needs placement Subjective Allergies: Coded Allergies: PENICILLIN (Verified Allergy, Unknown, Rash, 03/30/15) Subjective breathing better no cp Objective Last 24 Hour Vital Signs Date Time Temp Pulse Resp B/P Pulse Ox O2 Delivery O2 Flow Rate FiO2 09/23/16 20:00 96.4 101 20 147/81 99 Room Air 09/23/16 19:54 97 Room Air 21 09/23/16 19:54 Room Air 09/23/16 16:01 97.2 110 19 107/50 100 Room Air 09/23/16 12:00 96.6 107 19 103/58 98 Nasal Cannula 09/23/16 08:40 93 09/23/16 08:22 96.6 93 19 93/65 100 Room Air 09/23/16 04:30 98.1 89 20 91/58 100 Room Air 09/23/16 04:00 98.1 89 20 100 Room Air 09/23/16 01:30 97.9 92 18 96/57 100 Room Air 09/23/16 00:00 100 09/23/16 00:00 97.7 92 18 116/61 99 Intake and Output 09/22/16 09/23/16 19:00 07:00 Intake Total 463.85 ml 150 ml Output Total 1550 ml 450 ml Balance -1086.15 ml -300 ml Intake Oral 350 ml 150 ml IV Total 113.85 ml Output Urine Total 1550 ml 450 ml # Bowel Movements 1 2 Laboratory Tests 09/23/16 13:15: Prothrombin Time 11.1, Prothromb Time International Ratio 1.1 Height (Feet): 5 Height (Inches): 4.00 Weight (Pounds): 170 General Appearance: WD/WN Neck: supple Cardiovascular: normal rate Respiratory/Chest: lungs clear Abdomen: soft Objective pos edema bilaterally decreased BLANCA GORDILLO Sep 23, 2016 23:29
[2016-09-24] VITALS: BP 100/59
[2016-09-24 04:00] VITALS: BP 96/63
[2016-09-24] MEDS: NovoLOG Insulin Flexpen SUBQ SCH ×2 (06:25→11:30)
[2016-09-24 08:00] VITALS: BP 100/69
[2016-09-24] MEDS: Digoxin 0.125mg tab ORAL SCH (08:33)
[2016-09-24] MEDS: KCl 10% 40mEq/30ml liquid ORAL SCH (08:33)
[2016-09-24] MEDS: Dyna-Hex 2% Top Sol 8oz TOPIC SCH (08:34)
[2016-09-24] MEDS: Heparin 5000 units/ml inj SUBQ SCH (08:35)
--- NOTE | 2016-09-24 10:27 | General Progress Note ---
Assessment/Plan Status: stable - from renal stand, unchanged Assessment/Plan status: Proteinuria, likely Diabetic Nephropathy HypoAlbuminemia: Increase Loss vs Decrease production- UTI Anemia Failure to thrive / Dehydration Pacer severe cardiomyopathy Ej Fx 20% Low Ca , corrects with Low Alb Plan; No labs today- ? DC planning?? Optimize cardiac status- Anemia hauser- K supplement- as needed 24 H urine for protein- nominal monitor renal parameters gastric support- stop [facility]- 2D Echo : Low EjFx per orders Subjective ROS Limited/Unobtainable: No Constitutional: Reports: malaise, weakness Allergies: Coded Allergies: PENICILLIN (Verified Allergy, Unknown, Rash, 03/30/15) Objective Last 24 Hour Vital Signs Date Time Temp Pulse Resp B/P Pulse Ox O2 Delivery O2 Flow Rate FiO2 09/24/16 08:33 102 09/24/16 08:00 97.3 102 18 100/69 100 Room Air 09/24/16 04:00 97.3 94 20 96/63 100 Room Air 09/24/16 00:00 97.7 99 20 100/59 100 Room Air 09/23/16 20:00 96.4 101 20 147/81 99 Room Air 09/23/16 19:54 97 Room Air 21 09/23/16 19:54 Room Air 09/23/16 16:01 97.2 110 19 107/50 100 Room Air 09/23/16 12:00 96.6 107 19 103/58 98 Nasal Cannula Intake and Output 09/23/16 09/24/16 19:00 07:00 Output Total 305 ml 700 ml Balance -305 ml -700 ml Output Urine Total 300 ml 700 ml Stool Total 5 ml # Bowel Movements 5 5 Laboratory Tests 09/23/16 13:15: Prothrombin Time 11.1, Prothromb Time International Ratio 1.1 Height (Feet): 5 Height (Inches): 4.00 Weight (Pounds): 170 General Appearance: no apparent distress Objective no change in PE FAUZIA MAYA Sep 24, 2016 10:27
[2016-09-24 11:51] VITALS: BP 100/66
--- NOTE | 2016-09-24 17:36 | Pulmonology Progress Note ---
Assessment/Plan Problems: (1) Anasarca (2) Pulmonary edema (3) Renal insufficiency (4) EF< 20 (5) uterine and ovarian mass (6) increased tumor markers (7) Protein-calorie malnutrition, severe (8) ICD (implantable cardioverter-defibrillator) in place (9) Impaired mobility and ADLs (10) Diabetes mellitus (11) ATN (acute tubular necrosis) Assessment/Plan improving check intake and output, so far 7.5 liters. up today. check electrolytes EF < 20, anasarca, social workers talked to all three cousins and they agree on hospice. positive tumor markers and uterine and ovarian mass. dc planning in progress to contracted care home or assisted living on lasix to TID, check electrolytes and BNP in am Subjective ROS Limited/Unobtainable: No Interval Events: was seen earlier today, no new complains Allergies: Coded Allergies: PENICILLIN (Verified Allergy, Unknown, Rash, 03/30/15) Objective Last 24 Hour Vital Signs Date Time Temp Pulse Resp B/P Pulse Ox O2 Delivery O2 Flow Rate FiO2 09/24/16 11:51 97.3 107 19 100/66 99 Room Air 09/24/16 08:33 102 09/24/16 08:00 97.3 102 18 100/69 100 Room Air 09/24/16 04:00 97.3 94 20 96/63 100 Room Air 09/24/16 00:00 97.7 99 20 100/59 100 Room Air 09/23/16 20:00 96.4 101 20 147/81 99 Room Air 09/23/16 19:54 97 Room Air 21 09/23/16 19:54 Room Air Intake and Output 09/23/16 09/24/16 19:00 07:00 Output Total 305 ml 700 ml Balance -305 ml -700 ml Output Urine Total 300 ml 700 ml Stool Total 5 ml # Bowel Movements 5 5 Objective General Appearance: WD/WN Lines, tubes and drains: peripheral, HEENT: normocephalic, atraumatic Neck: non-tender, normal alignment Respiratory/Chest: chest wall non-tender, rhonchi Cardiovascular/Chest: normal peripheral pulses, normal rate Abdomen: normal bowel sounds Genitourinary/Rectal: normal genital exam Extremities: normal range of motion, normal inspection Skin Exam: normal pigmentation ANGELA BERUMEN Sep 24, 2016 17:36
--- NOTE | 2016-09-24 22:12 | General Progress Note ---
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 appreciated dvt and ulcer prohylaxis PT OOB going to SNF today Subjective Allergies: Coded Allergies: PENICILLIN (Verified Allergy, Unknown, Rash, 03/30/15) Subjective breathing better no chest painstates being discharged today Objective Last 24 Hour Vital Signs Date Time Temp Pulse Resp B/P Pulse Ox O2 Delivery O2 Flow Rate FiO2 09/24/16 11:51 97.3 107 19 100/66 99 Room Air 09/24/16 08:33 102 09/24/16 08:00 97.3 102 18 100/69 100 Room Air 09/24/16 04:00 97.3 94 20 96/63 100 Room Air 09/24/16 00:00 97.7 99 20 100/59 100 Room Air Intake and Output 09/23/16 09/24/16 19:00 07:00 Output Total 305 ml 700 ml Balance -305 ml -700 ml Output Urine Total 300 ml 700 ml Stool Total 5 ml # Bowel Movements 5 5 Height (Feet): 5 Height (Inches): 4.00 Weight (Pounds): 170 General Appearance: WD/WN Neck: supple Cardiovascular: normal rate Respiratory/Chest: lungs clear Abdomen: soft Objective pos edema bilaterally decreased BLANCA GORDILLO Sep 24, 2016 22:12
--- NOTE | 2016-09-26 09:24 | Discharge Summary ---
Discharge Summary Hospital Course Date of Admission Sep 11, 2016 at 19:22 Date of Discharge Sep 24, 2016 at 15:00 Admitting Diagnosis DEHYDRATION,FAILURE TO THRIVE,UTI HPI Jairo Mejia is a 75 year old female who was admitted on Sep 11, 2016 at 19: 22 for Dehydration,Failure To Thrive Hospital Course dc summary #[id number] Discharge Medications New Medications: Furosemide* (Lasix*) 40 Mg Tablet 40 MG ORAL EVERY 8 HOURS for 30 Days, TAB Polyethylene Glycol 3350* (Miralax*) 17 Gm Powd.pack 17 GM ORAL HSPRN PRN for 30 Days, PACK Continued Medications: Carvedilol (Coreg) 3.125 Mg Tablet 3.125 MG ORAL EVERY 12 HOURS, TAB Digoxin (Digoxin) 0.125 Mg/2.5 Ml Solution 0.125 MG PO DAILY Gabapentin* (Neurontin*) 100 Mg Capsule 300 MG ORAL HS, CAP Sitagliptin (Januvia) 50 Mg Tablet 50 MG ORAL DAILY, TAB Discharge Condition Upon Discharge: stable Discharge Disposition Patient was discharged to SNF/Subacute Facility(03) Discharge Diagnoses: Lino (Vanccharanein)Paty NP Sep 26, 2016 09:24
--- NOTE | 2016-09-26 13:46 | Discharge Summary 2 SIG ---
DATE OF ADMISSION: 09/11/2016 DATE OF DISCHARGE: 09/24/2016 REASON FOR ADMISSION: 75-year-old female with a history of cardiomyopathy and AICD , brought in to by paramedics due to the generalized weakness and inability to perform activity of daily living. Apparently, the patient had been on the ground for some time and was not eating or drinking. The patient was very vague. She was unable to stand up. The patient was living alone since her roommate was in rehabilitation facility. The patient herself recently left rehabilitation facility. Her primary complaint was generalized weakness. She denied chest pain or shortness of breath. She denied fever, chills, nausea, vomiting, and abdominal pain. The patient was admitted to telemetry for further management. The patient was initially admitted to telemetry. Blood pressure was on the low side. The patient was somnolent and did not want to answer any question. Gentle IV fluids started and later, the patient required dobutamine drip and was transferred to ICU for further management. ADMITTING DIAGNOSES: 1. shock. 2. Hypotension. 3. Dehydration. 4. Acute encephalopathy. 5. Automatic implantable cardioverter-defibrillator in place. 6. Diabetes mellitus. 7. Impaired mobility and activity of daily living. HOSPITAL STAY: The patient admitted. The patient required a central line for dobutamine. Cardiology consult urgently requested. Per Cardiology agree with dobutamine drip. The patient known to entry level marketing representative for years and usually the patient response to dobutamine. Blood pressure was closely monitored. Echocardiogram revealed moderate mitral regurgitation, grade 3 significant diastolic dysfunction and elevated left atrial pressure. Moderate to severe tricuspid regurgitation. Right ventricular systolic pressure of 59 consistent with borderline severe pulmonary hypertension, ejection fraction 10% to 15%. Also noted mobile density on the left ventricle side of the aortic wall, which may represent ____ artifact, however, vegetation was not included. MitraClip in place. The patient is status post MitraClip for mitral regurgitation. According to entry level marketing representative, he placed diuretics on hold for a few days until blood pressure was stable. Blood culture were drawn to rule out endocarditis. Blood culture were negative. According to entry level marketing representative, who the patient has a thickening of the aortic valve leaflet, but no apparent vegetation. The patient did not appeared toxic and blood culture were negative. The patient was treated symptomatically and supportive care provided. Recycling Attendant followed. Supplemental oxygen and pulmonary toilet provided as needed to keep saturation above 92%. Blood culture were done on two consecutive days and both days were negative. The patient is off initially started empiric antibiotics. Chest x-ray revealed no evidence of acute cardiopulmonary disease. Tumor markers were ordered by neurologist, who was involved in care of this patient. Noted elevated CA-125 marker. Of note, neurologist seen and evaluated the patient for altered mental status. According to neurologist, the patient presented with profound generalized weakness, failure to thrive, and cognitive abnormalities wanted to rule out vascular dementia, rule out occult malignancy with encephalopathy. Occult malignancy workup included CT of the abdomen, pelvis, and chest which was the patient declined to do. He recommended calorie count, intravenous hydration, and laboratory workup to include tumor markers, vitamin D and A level, serum protein electrophoresis, and avoid polypharmacy. Venous duplex bilateral lower extremity was negative. Cancer tumor markers revealed all of them stable except CA-125, which was 61.7. CA 15/3, CA 19/9, CA 27/29 were all within normal limits. Serum protein electrophoresis, essentially stable. Noted faint band in gamma region suspicious for monoclonal immunoglobulin. The patient noted to have positive MILENA screen. Blood pressure stabilized on dobutamine. The patient restarted on diuresis. Good urinary output. Medical management of systolic congestive heart failure was provided with diuretic and digoxin. Pelvic ultrasound revealed multiple uterine masses most likely fibroid. Left adnexal mass of similar appearance most likely exophytic subserosal fibroid. Ovarian mass/neoplasm not excludable. Subsequently REFINERY OPERATOR HELPER consult was called. According to REFINERY OPERATOR HELPER, the patient has a symptomatic uterine fibroids. Endometrium abnormal structure most likely calcified submucosal fibroid. At this stage of her life, the REFINERY OPERATOR HELPER did not recommend any intervention and recommended to treat her very symptomatically. Blood sugar was managed with sliding scale of insulin and was stable. Initial chest x-ray, development of CHF and left pleural effusion. Followup chest x-ray revealed increase in bilateral congestive changes likely atelectasis and the last chest x-ray revealed small right pleural effusion, diffuse retrocardiac opacification with air bronchogram. ProBNP was trending. Electrolytes replace as needed. Reservation Clerk followed. The patient was off all mind-altering medication. Psychiatrist follow and diagnosed with delirium and cognitive impairment. Recommended to keep off all mind-altering medication only Ativan as needed. Again, blood sugar was managed with sliding scale of insulin. Hemoglobin A1c was 6.8. Wound care nurse seen the patient for existing decubitus. Wound care provided as per wound care nurse recommendation. Social service was requested for placement. According to psychiatrist, the patient has lack of capacity to do any medical decision. Next of kin has to do the decision. The placement was found in [facility] transfer. The patient was stable for discharge. DISCHARGE DIAGNOSES: 1. Shock. 2. Hypotension. 3. Dehydration. 4. Acute on chronic systolic and diastolic heart failure. 5. Acute toxic metabolic encephalopathy. 6. Dilated cardiomyopathy. 7. Automatic implantable cardioverter-defibrillator. 8. Moderate to severe tricuspid regurgitation. 9. Status post MitraClip for mitral regurgitation. 10. Severe pulmonary hypertension. 11. Moderate mitral regurgitation. 12. Diabetes mellitus. 13. Severe protein-calorie malnutrition. 14. Social isolation. 15. Impaired mobility and activity of daily living. 16. Failure to thrive. 17. Delirium with cognitive impairment. 18. Generalized weakness. 19. History of breast cancer. 20. History of thyroid cancer. Of note, thyroid cancer was not treated due to comorbidities. 21. History of breast cancer with status post right mastectomy ten years ago. 22. Left buttock stage II present on admission. 23. Right buttock stage II present on admission. 24. Uterine fibroids, asymptomatic DISCHARGE MEDICATIONS: See medication reconciliation list. DISCHARGE INSTRUCTIONS: The patient discharged to residential facility. Family in agreement. Follow up with medical doctor at the facility. Torrie Kc M.D. Paty Clementslisy N.PMiryam DR: Ophelia JOB#: [id number] CC: PEARL
== END 2016-09-24 15:00 | DRG 291 ==
LOC: ENRESERVDT → ENRESERVTM → EDBD 17:44 → EMR 18:12 → 2E 19:22 → EDBEDREQ 19:50 → ICU 09-12 14:16 → 2W 09-14 20:21 → 4E 09-23 01:28
PROC: 02HV33Z Insertion of Infusion Device into Superior Vena Cava, Percutaneous Approach (ICD-10-PCS; principal; 2016-09-13)
DX: I50.43 Acute on chronic combined systolic (congestive) and diastolic (congestive) heart failure (principal); G92 Toxic encephalopathy; R57.9 Shock, unspecified; N17.0 Acute kidney failure with tubular necrosis; L89.322 Pressure ulcer of left buttock, stage 2; L89.312 Pressure ulcer of right buttock, stage 2; E86.0 Dehydration; I42.0 Dilated cardiomyopathy; I27.2 Other secondary pulmonary hypertension; N39.0 Urinary tract infection, site not specified; E87.1 Hypo-osmolality and hyponatremia; C73 Malignant neoplasm of thyroid gland; Z95.810 Presence of automatic (implantable) cardiac defibrillator; I08.1 Rheumatic disorders of both mitral and tricuspid valves; Z60.4 Social exclusion and rejection; R62.7 Adult failure to thrive; G31.84 Mild cognitive impairment of uncertain or unknown etiology; R53.1 Weakness; Z85.3 Personal history of malignant neoplasm of breast; D25.9 Leiomyoma of uterus, unspecified; Z60.2 Problems related to living alone; Z88.0 Allergy status to penicillin; Z74.09 Other reduced mobility; I10 Essential (primary) hypertension; I25.2 Old myocardial infarction; I25.10 Atherosclerotic heart disease of native coronary artery without angina pectoris; D64.9 Anemia, unspecified; Z91.14 Patient's other noncompliance with medication regimen; E78.5 Hyperlipidemia, unspecified; Z88.6 Allergy status to analgesic agent; M19.90 Unspecified osteoarthritis, unspecified site; Z90.11 Acquired absence of right breast and nipple; N85.8 Other specified noninflammatory disorders of uterus; N83.9 Noninflammatory disorder of ovary, fallopian tube and broad ligament, unspecified; Z91.19 Patient's noncompliance with other medical treatment and regimen; E11.9 Type 2 diabetes mellitus without complications
CPT/HCPCS: 36415; 36569; 36600; 71010; 76856; 76937; 80048; 80053; 80061; 80076; 81003; 81050; 82140; 82306; 82550; 82553; 82607; 82728; 82746; 82803; 82962; 82977; 83036; 83540; 83550; 83605; 83735; 83880; 84100; 84156; 84165; 84443; 84446; 84484; 84550; 85007; 85025; 85610; 86039; 86140; 86300; 86301; 86304; 87040; 93005; 93306; 93970; 94760; J1815; J2405; J8499